=== PATIENT | male | born 1955 | race Caucasian/White ===

== ENCOUNTER 2017-07-24 19:22 | Inpatient (IN) ==
--- NOTE | 2017-07-24 19:56 | Emergency Department Note ---
Disposition Clinical Impression: A-fib, Weakness, Hypophosphatemia Disposition: Admitted As Inpatient Condition: Good Referrals: NONE,PCP [Primary Care Provider] - Forms: ED Satisfaction Letter General Adult HPI - General Chief complaint: ED Chest Pain Stated complaint: chest pain Time Seen by Provider: 07/24/17 19:40 Source: patient, EMS Limitations: no limitations Nursing Notes Reviewed: Yes Vital Signs Reviewed: Yes - History of Present Illness Pain Scale: 6 - Related Data Home Medications Medication Instructions Recorded Confirmed Albuterol Sulfate [Albuterol 2 puff IH Q4H PRN 07/24/17 07/24/17 Inhaler] Amlodipine Besylate 10 mg PO DAILY 07/24/17 07/24/17 Aspirin 325 mg PO DAILY 07/24/17 07/24/17 Atenolol [Tenormin] 50 mg PO BID 07/24/17 07/24/17 Atorvastatin Calcium [Lipitor] 80 mg PO HS 07/24/17 07/24/17 Clopidogrel [Plavix] 75 mg PO DAILY 07/24/17 07/24/17 Ezetimibe [Zetia] 10 mg PO DAILY 07/24/17 07/24/17 FLUoxetine HCl [PROzac] 60 mg PO DAILY 07/24/17 07/24/17 Lisinopril [Zestril] 20 mg PO BID 07/24/17 07/24/17 Melatonin 5 mg PO HS 07/24/17 07/24/17 Methylphenidate HCl [Ritalin] 20 mg PO TID 07/24/17 07/24/17 Mirtazapine [Remeron] 15 mg PO HS 07/24/17 07/24/17 Nitroglycerin [Nitrostat] 0.4 mg SL Q5M PRN 07/24/17 07/24/17 Rivaroxaban [Xarelto] 20 mg PO DAILY 07/24/17 07/24/17 Temazepam [Restoril] 30 mg PO HS 07/24/17 07/24/17 diazePAM [Valium] 10 mg PO TID PRN 07/24/17 07/24/17 Allergies Allergy/AdvReac Type Severity Reaction Status Date / Time acetaminophen AdvReac Itching Verified 04/02/16 15:53 [From Darvocet-N] codeine AdvReac Itching Verified 05/22/16 15:53 propoxyphene AdvReac Itching Verified 04/02/16 15:53 [From Darvocet-N] tramadol [From Ultram] AdvReac Itching Verified 04/02/16 15:53 Past Medical History - Past Medical History Medical history: Reports: arthritis, atrial fibrillation, COPD, coronary artery disease, diabetes, hyperlipidemia, hypertension Psychiatric history: Reports: anxiety, depression - Social History Smoking Status: Current every day smoker Alcohol use: Reports: occasionally Drug use: Reports: none Physical Exam - General Limitations: no limitations General appearance: alert Course Vital Signs Temperature 98.3 F 07/24/17 19:24 Pulse Rate 122 07/24/17 19:24 Respiratory Rate 20 07/24/17 19:24 Blood Pressure 105/68 07/24/17 19:24 O2 Sat by Pulse Oximetry 98 07/24/17 19:24 Temperature 98.3 F 07/24/17 19:24 Pulse Rate 111 07/24/17 22:31 Respiratory Rate 18 07/24/17 22:31 Blood Pressure 117/66 07/24/17 22:31 O2 Sat by Pulse Oximetry 98 07/24/17 22:31 Oxygen Delivery Oxygen Delivery Room Air Medical Decision Making - MDM Narrative Medical decision making narrative: I examined this patient and my medical decision-making was reviewed with the Resident Physician. I agree with the documented findings, disposition and treatment plan as described except to the extent set forth below. Patient seen and evaluated by Dr. Grewal and myself, agrees his evaluation management plan, surprise, the patient will stay. Patient has a significant cardiac history says he has 9 stents is been noncompliant with medications but is on Plavix at this time. A history of A. fib needs get rapid ventricular we will try to slow his rate down with Cardizem check labs EKG chest x-ray and reassess he will need admission. He is in agreement to this plan. 2046 hrs.: Initial EKG showed A. fib with RVR. He is on Cardizem drip at this time. Labs are coming back and he will be admitted. Chest X-Ray 07/24/17 19:41 IMPRESSION: No acute cardiopulmonary disease. D/ / Elvis Vitale MD / Elvis Vitale MD Interpreting Provider: Elvis Vitale MD 2230 hrs.: Patient's heart rates come down to 120 we have increased his Cardizem from 5 mg to 10 mg an hour, we bolused him with 25 mg. Will repeat an EKG. Labs are back chest x-rays back and her goals admission A. fib with RVR chest pain rule out ACS. Labs are reviewed and troponins negative. Patient's critical care time except when he separately billable procedures is 30 minutes. 2235 hrs. patient's current heart rate is 82 we will repeat EKG at this time. Will call for admission. - Lab Data Result diagrams: 07/24/17 20:11 07/24/17 20:11 Lab Results 07/24/17 07/24/17 07/24/17 Range/Units 20:11 20:11 20:11 WBC 13.0 H (4.3-11.1) K/mcL RBC 5.25 (4.19-5.50) M/mcL Hgb 15.5 (12.9-16.9) g/dL Hct 45.3 (37.5-50.1) % MCV 86.3 (83.0-100.0) fL MCH 29.5 (28.0-33.3) pg MCHC 34.2 (31.6-35.5) g/dL RDW 12.3 (11.5-14.5) % Plt Count 299 (140-400) K/mcL MPV 9.7 (9.4-12.4) fL Immature Gran % 0.4 (0-4) % Seg Neutrophils % 82.6 % Lymphocytes % 12.0 % Monocytes % 4.4 % Eosinophils % 0.3 % Basophils % 0.3 % Neutrophils # 10.7 H (1.6-8.9) K/mcL Lymphocytes # 1.6 (0.6-4.6) K/mcL Monocytes # 0.6 (0.0-1.3) K/mcL Eosinophils # 0.0 (0.0-0.6) K/mcL Basophils # 0.0 (0.0-0.2) K/mcL Immature Plt Fraction 2.4 (1.1-6.1) % PT 11.7 (9.4-12.1) Seconds INR 1.1 Sodium 138 (136-145) mEq/L Potassium 3.7 (3.5-4.5) mEq/L Chloride 107 (98-109) mEq/L Carbon Dioxide 20 (19-29) mEq/L BUN 16 (8-26) mg/dL Creatinine 0.92 (0.72-1.25) mg/dL Est GFR ( Amer) > 60 (> 60) Est GFR (Non-Af Amer) > 60 (> 60) BUN/Creatinine Ratio 17 (6-26) Glucose 98 (70-99) mg/dL Calculated Osmolality 287 (280-300) Calcium 10.1 (8.6-10.8) mg/dL Phosphorus 1.0 L* (2.3-4.7) mg/dL Magnesium 1.9 (1.6-2.6) mg/dL Troponin I (0-0.03) ng/mL TSH 2.722 (0.350-4.840) mcIU/mL 07/24/17 Range/Units 20:11 WBC (4.3-11.1) K/mcL RBC (4.19-5.50) M/mcL Hgb (12.9-16.9) g/dL Hct (37.5-50.1) % MCV (83.0-100.0) fL MCH (28.0-33.3) pg MCHC (31.6-35.5) g/dL RDW (11.5-14.5) % Plt Count (140-400) K/mcL MPV (9.4-12.4) fL Immature Gran % (0-4) % Seg Neutrophils % % Lymphocytes % % Monocytes % % Eosinophils % % Basophils % % Neutrophils # (1.6-8.9) K/mcL Lymphocytes # (0.6-4.6) K/mcL Monocytes # (0.0-1.3) K/mcL Eosinophils # (0.0-0.6) K/mcL Basophils # (0.0-0.2) K/mcL Immature Plt Fraction (1.1-6.1) % PT (9.4-12.1) Seconds INR Sodium (136-145) mEq/L Potassium (3.5-4.5) mEq/L Chloride (98-109) mEq/L Carbon Dioxide (19-29) mEq/L BUN (8-26) mg/dL Creatinine (0.72-1.25) mg/dL Est GFR ( Amer) (> 60) Est GFR (Non-Af Amer) (> 60) BUN/Creatinine Ratio (6-26) Glucose (70-99) mg/dL Calculated Osmolality (280-300) Calcium (8.6-10.8) mg/dL Phosphorus (2.3-4.7) mg/dL Magnesium (1.6-2.6) mg/dL Troponin I 0.00 (0-0.03) ng/mL TSH (0.350-4.840) mcIU/mL
[2017-07-24] MEDS ORDERED: Nitroglycerin 0.4 MG TAB.SUBL SL PRN (20:02)
--- NOTE | 2017-07-24 20:13 | Emergency Department Note ---
Disposition Clinical Impression: A-fib, Weakness, Hypophosphatemia Disposition: Admitted As Inpatient Condition: Good Referrals: NONE,PCP [Primary Care Provider] - Forms: ED Satisfaction Letter Time of Disposition: 21:55 Chest Pain HPI - General Chief Complaint: ED Chest Pain Stated Complaint: chest pain Time Seen by Provider: 07/24/17 19:40 Source: patient, EMS Limitations: no limitations Vital Signs Reviewed: Yes Nursing Notes Reviewed: Yes - History of Present Illness HPI Narrative: Patient presents to the ED with the chief complaint of chest pain. Patient has a history of paroxysmal atrial fibrillation and is supposed to be on Coumadin but does not take it due to cost. States that for the last few days he has felt like he has been in A. fib, but about 45 minutes prior to arrival, he had acute onset of retrosternal chest heaviness and pressure and shortness of breath. States he felt like his atrial fibrillation was really acting up. No nausea, vomiting or diaphoresis. No headaches, changes in vision. Does complain of bilateral arm tingling and right shoulder discomfort from the pain but this has been ongoing for the past few days and is unsure when it started. States that he took a nitroglycerin which helped with his pain , but he ran out of them Severity scale (1-10): 4 - Related Data Home Medications Medication Instructions Recorded Confirmed Albuterol Sulfate [Albuterol 2 puff IH Q4H PRN 07/24/17 07/24/17 Inhaler] Amlodipine Besylate 10 mg PO DAILY 07/24/17 07/24/17 Aspirin 325 mg PO DAILY 07/24/17 07/24/17 Atenolol [Tenormin] 50 mg PO BID 07/24/17 07/24/17 Atorvastatin Calcium [Lipitor] 80 mg PO HS 07/24/17 07/24/17 Clopidogrel [Plavix] 75 mg PO DAILY 07/24/17 07/24/17 Ezetimibe [Zetia] 10 mg PO DAILY 07/24/17 07/24/17 FLUoxetine HCl [PROzac] 60 mg PO DAILY 07/24/17 07/24/17 Lisinopril [Zestril] 20 mg PO BID 07/24/17 07/24/17 Melatonin 5 mg PO HS 07/24/17 07/24/17 Methylphenidate HCl [Ritalin] 20 mg PO TID 07/24/17 07/24/17 Mirtazapine [Remeron] 15 mg PO HS 07/24/17 07/24/17 Nitroglycerin [Nitrostat] 0.4 mg SL Q5M PRN 07/24/17 07/24/17 Rivaroxaban [Xarelto] 20 mg PO DAILY 07/24/17 07/24/17 Temazepam [Restoril] 30 mg PO HS 07/24/17 07/24/17 diazePAM [Valium] 10 mg PO TID PRN 07/24/17 07/24/17 Allergies Allergy/AdvReac Type Severity Reaction Status Date / Time acetaminophen AdvReac Itching Verified 04/02/16 15:53 [From Darvocet-N] codeine AdvReac Itching Verified 04/02/16 15:53 propoxyphene AdvReac Itching Verified 04/02/16 15:53 [From Darvocet-N] tramadol [From Ultram] AdvReac Itching Verified 04/02/16 15:53 All systems ED: reviewed and negative except as stated. Constitutional: Denies: fever Cardiovascular: Reports: chest pain Respiratory: Reports: dyspnea Gastrointestinal: Denies: vomiting Chest Pain PMH - Past Medical History Medical history: Reports: arthritis, atrial fibrillation, COPD, coronary artery disease, diabetes, hyperlipidemia, hypertension Psychiatric history: Reports: anxiety, depression - Social History Smoking Status: Current every day smoker Alcohol use: Reports: occasionally Drug use: Reports: none Physical Exam - General Limitations: no limitations General appearance: alert, in no apparent distress - Head Head exam: atraumatic, normocephalic, normal inspection - Eye Eye exam: Present: normal appearance, PERRL, EOMI - ENT ENT exam: normal exam, normal oropharynx, mucous membranes moist - Neck Neck exam: Present: normal inspection, full ROM, trachea midline - Chest Chest inspection: Present: normal inspection, symmetric chest wall rise - Respiratory Respiratory exam: Present: normal lung sounds bilaterally - Cardiovascular Cardiovascular exam: Present: tachycardia, irregular rhythm - Abdominal Exam Abdominal exam: Present: soft, Non-Tender. Absent: tenderness, distention, guarding, rebound, rigidity - Extremities Exam Extremities exam: Present: normal inspection, full ROM. Absent: tenderness, pedal edema - Neurological Exam Neurological exam: Present: alert, oriented X3 - Expanded Neurological Exam Patient oriented to: Present: person, place, time Speech: Present: fluid speech Cranial nerves: EOM function (II, III, IV, ): Normal, facial sensation (V): Normal, facial palsy (VII): Abnormal Left (patient states normal, very slighlt L corner of mouth droop), spinal accessory function (XI): Normal, tongue deviation (XII): Normal Cerebellar function: finger to nose: Normal Cerebellar function: normal gait Motor strength - LUE: 5/5 Motor strength - RUE: 5/5 Motor strength - LLE: 5/5 Motor strength - RLE: 5/5 Upper motor neuron exam: asher neglect: Absent bilaterally, pronator drift: Absent bilaterally Sensory exam upper extremity: light touch: Normal Sensory exam lower extremity: light touch: Normal Coma Scale Eye Opening: Spontaneous Coma Scale Motor Response: Obeys Commands Coma Scale Verbal Response: Oriented Coma Scale Total: 15 - Psychiatric Psychiatric exam: Present: normal affect, normal mood - Skin Skin exam: Present: warm, dry, intact, normal color Course Course Narrative: Patient presenting with history of A. fib. Patient, in A. fib on exam. Also has some subjective right-sided upper extremity weakness, although nondetectable on exam. Does have a mild left-sided facial asymmetry. The patient states this is normal. He is unsure when all this started. He chest pain that brought him in tonight started about 45 minutes prior to arrival. Overall, he looks well. We will workup and likely admitted. Due to his history of atrial fibrillation and being noncompliant with his anticoagulants. We will go ahead and CT his head to evaluate for potential ischemic changes. Vital Signs Temperature 98.3 F 07/24/17 19:24 Pulse Rate 122 07/24/17 19:24 Respiratory Rate 20 07/24/17 19:24 Blood Pressure 105/68 07/24/17 19:24 O2 Sat by Pulse Oximetry 98 07/24/17 19:24 Temperature 98.3 F 07/24/17 19:24 Pulse Rate 111 07/24/17 22:31 Respiratory Rate 18 07/24/17 22:31 Blood Pressure 117/66 07/24/17 22:31 O2 Sat by Pulse Oximetry 98 07/24/17 22:31 Oxygen Delivery Oxygen Delivery Room Air Chest Pain - Medical Records Medical records reviewed: Yes I reviewed the patient's medical records. - Lab Data Lab results reviewed: Yes I reviewed the patient's lab results. Result diagrams: 07/24/17 20:11 07/24/17 20:11 Lab Results 07/24/17 07/24/17 07/24/17 Range/Units 20:11 20:11 20:11 WBC 13.0 H (4.3-11.1) K/mcL RBC 5.25 (4.19-5.50) M/mcL Hgb 15.5 (12.9-16.9) g/dL Hct 45.3 (37.5-50.1) % MCV 86.3 (83.0-100.0) fL MCH 29.5 (28.0-33.3) pg MCHC 34.2 (31.6-35.5) g/dL RDW 12.3 (11.5-14.5) % Plt Count 299 (140-400) K/mcL MPV 9.7 (9.4-12.4) fL Immature Gran % 0.4 (0-4) % Seg Neutrophils % 82.6 % Lymphocytes % 12.0 % Monocytes % 4.4 % Eosinophils % 0.3 % Basophils % 0.3 % Neutrophils # 10.7 H (1.6-8.9) K/mcL Lymphocytes # 1.6 (0.6-4.6) K/mcL Monocytes # 0.6 (0.0-1.3) K/mcL Eosinophils # 0.0 (0.0-0.6) K/mcL Basophils # 0.0 (0.0-0.2) K/mcL Immature Plt Fraction 2.4 (1.1-6.1) % PT 11.7 (9.4-12.1) Seconds INR 1.1 Sodium 138 (136-145) mEq/L Potassium 3.7 (3.5-4.5) mEq/L Chloride 107 (98-109) mEq/L Carbon Dioxide 20 (19-29) mEq/L BUN 16 (8-26) mg/dL Creatinine 0.92 (0.72-1.25) mg/dL Est GFR ( Amer) > 60 (> 60) Est GFR (Non-Af Amer) > 60 (> 60) BUN/Creatinine Ratio 17 (6-26) Glucose 98 (70-99) mg/dL Calculated Osmolality 287 (280-300) Calcium 10.1 (8.6-10.8) mg/dL Phosphorus 1.0 L* (2.3-4.7) mg/dL Magnesium 1.9 (1.6-2.6) mg/dL Troponin I (0-0.03) ng/mL TSH 2.722 (0.350-4.840) mcIU/mL 07/24/17 Range/Units 20:11 WBC (4.3-11.1) K/mcL RBC (4.19-5.50) M/mcL Hgb (12.9-16.9) g/dL Hct (37.5-50.1) % MCV (83.0-100.0) fL MCH (28.0-33.3) pg MCHC (31.6-35.5) g/dL RDW (11.5-14.5) % Plt Count (140-400) K/mcL MPV (9.4-12.4) fL Immature Gran % (0-4) % Seg Neutrophils % % Lymphocytes % % Monocytes % % Eosinophils % % Basophils % % Neutrophils # (1.6-8.9) K/mcL Lymphocytes # (0.6-4.6) K/mcL Monocytes # (0.0-1.3) K/mcL Eosinophils # (0.0-0.6) K/mcL Basophils # (0.0-0.2) K/mcL Immature Plt Fraction (1.1-6.1) % PT (9.4-12.1) Seconds INR Sodium (136-145) mEq/L Potassium (3.5-4.5) mEq/L Chloride (98-109) mEq/L Carbon Dioxide (19-29) mEq/L BUN (8-26) mg/dL Creatinine (0.72-1.25) mg/dL Est GFR ( Amer) (> 60) Est GFR (Non-Af Amer) (> 60) BUN/Creatinine Ratio (6-26) Glucose (70-99) mg/dL Calculated Osmolality (280-300) Calcium (8.6-10.8) mg/dL Phosphorus (2.3-4.7) mg/dL Magnesium (1.6-2.6) mg/dL Troponin I 0.00 (0-0.03) ng/mL TSH (0.350-4.840) mcIU/mL - Radiology Data Radiology results reviewed: Yes I reviewed the patient's radiology results. - EKG Data EKG attestation: Yes I reviewed and interpreted this EKG. EKG results narrative: A. fib with RVR, rate 157, QRS 76, QTC 382, normal axis, no specific ischemic changes Repeat EKG at 2244 shows A. fib, rate 85, normal axis, no ischemic changes
[2017-07-24 20:22] LABS: Basophils % 0.3 %; Eosinophils % 0.3 %; Hematocrit 45.3 % (37.5-50.1); Hemoglobin 15.5 g/dL (12.9-16.9); Immature Granulocytes % 0.4 % (0-4); Immature Platelets 2.4 % (1.1-6.1); Lymphocytes # 1.6 K/mcL (0.6-4.6); Mean Corpuscular HGB Conc 34.2 g/dL (31.6-35.5); Mean Corpuscular Hemoglobin 29.5 pg (28.0-33.3); Mean Corpuscular Volume 86.3 fL (83.0-100.0); Mean Platelet Volume 9.7 fL (9.4-12.4); Monocytes # 0.6 K/mcL (0.0-1.3); Monocytes % 4.4 %; Neutrophils # 10.7 K/mcL (1.6-8.9); Platelet Count 299 K/mcL (140-400); Red Blood Count 5.25 M/mcL (4.19-5.50); Red Cell Distribution Width 12.3 % (11.5-14.5); Segmented Neutrophils % 82.6 %
[2017-07-24 20:27] LABS: INR 1.1; Prothrombin Time 11.7 Seconds (9.4-12.1)
[2017-07-24 20:33] LABS: BUN/Creatinine Ratio 17 (6-26); Blood Urea Nitrogen 16 mg/dL (8-26); Calcium 10.1 mg/dL (8.6-10.8); Carbon Dioxide 20 mEq/L (19-29); Chloride 107 mEq/L (98-109); Glucose 98 mg/dL (70-99); Magnesium 1.9 mg/dL (1.6-2.6); Osmolality,Calculated 287 (280-300); Potassium 3.7 mEq/L (3.5-4.5); Sodium 138 mEq/L (136-145); eGFR For African Americans > 60 (> 60); eGFR For Non-African Americans > 60 (> 60)
[2017-07-24 20:55] LABS: Thyroid Stimulating Hormone 2.722 mcIU/mL (0.350-4.840)
[2017-07-24] MEDS ORDERED: Aspirin 325 MG TABLET PO ONE (21:52)
[2017-07-25] MEDS ORDERED: Ondansetron 4 MG/2 ML VIAL IVP PRN (01:07)
[2017-07-25] MEDS ORDERED: Naloxone 0.4 MG/ML INJ IVP PRN (01:07)
--- NOTE | 2017-07-25 01:09 | Internal Med History&Physical ---
<Godwin Bermudez - Last Filed: 07/25/17 02:22> Date of Encounter: 07/25/17 Time of Encounter: 00:45 Assessment and Plan (1) Atrial fibrillation with RVR Current visit: Yes Status: Acute Patient reported having palpitations that felt like atrial fibrillation with onset of his chest pain earlier today. He states that since the improvement in his heart rate has been seeing he has also had improvement in his chest pain. Atrial fibrillation with RVR was seen at presentation and controlled with Cardizem drip. Patient was not anticoagulated for the last 3-4 years, though states that he has had approval by his insurance company for Xarelto even if he has not started yet. Continue Cardizem drip for rate control, consider transition to by mouth Cardizem We will start Xarelto We will obtain echocardiogram Continue telemetry (2) Chest pain Current visit: Yes Status: Acute Worse severe, 08/21, pressure center chest that began today with walking and improved with nitroglycerin. He states the pain lasted for an hour but is mostly gone now. Initial troponin negative, EKG negative for concerning ischemic findings. He still has some residual chest pressure but with control of his heart rate with Cardizem drips had improvement in his chest pain. We will continue to trend troponins Sublingual nitroglycerin as needed for continued chest discomfort We will continue to control atrial fibrillation We will obtain echocardiogram Continue telemetry Consider cardiology consult if chest pain does not resolve or patient develops positive troponins Qualifiers: Chest pain type: unspecified Qualified Code(s): R07.9 - Chest pain, unspecified (3) Facial droop Current visit: Yes Status: Acute Patient presents with atrial fibrillation RVR and chest pain. Found to have left-sided facial droop on physical exam. Family present says this is present for several days, if not one week. Patient also reports some mild blurring vision in his right eye, but denies other symptoms related to facial droop including headache, weakness, or sensation changes. Patient had carotid endarterectomy 6 months ago, but has history of atrial fibrillation and has not been anticoagulated in 3-4 years. We will obtain MRI head/brain in a.m. We will obtain echocardiogram Consider neurology consult if acute findings seen (4) Hypophosphatemia Current visit: Yes Status: Acute Patient found to have phosphate of 1.0. Unclear etiology of patient hypophosphatemia. Possible causes include decreased absorption/intake, vit. D deficiency, chronic diarrhea, urinary loss of phosphate, primary/secondary hyperparathyroidism, refeeding syndrome or Fanconi Syndrome. He reports eating mainly [employer] and bland snadwhiches, denies TUMs usage (likely no phos- binders), denies chronic diarrhea, and is not on a medication typically associated with Fanconi syndrome. We will replace phosphate with 44 mEq Potassium Phosphate We will recheck phosphate with morning labs We will check vitamin D and parathyroid hormone levels We will obtain urine phosphorus and urine creatinine to evaluate fractional excretion of phosphorus for potential urinary losses (5) CAD (coronary artery disease) Current visit: Yes Status: Acute Patient reports prior history of CAD with 9 stents placed previously. Reports having anginal symptoms earlier today, associated with elevated heart rate. No ischemic change seen on EKG, initial troponin negative. Chest pain improved with control of heart rate. We will continue to trend troponins Sublingual nitroglycerin for continued chest discomfort We will continue to monitor telemetry Qualifiers: Coronary Disease-Associated Artery/Lesion type: unspecified vessel or lesion type [place] vs. transplanted heart: [place] heart Associated angina: angina presence unspecified Qualified Code(s): I25.10 - Atherosclerotic heart disease of [place] coronary artery without angina pectoris (6) PAD (peripheral artery disease) Current visit: Yes Status: Chronic Patient had prior CVA in January with Dr. Fisher with evidence of CEA. No bruits auscultated at this time, chronic Doppler performed in January. (7) COPD (chronic obstructive pulmonary disease) Current visit: Yes Status: Chronic Patient reports history of COPD, he is a current every day smoker. Patient COPD stable at this time We will continue patient home inhaler Qualifiers: COPD type: unspecified COPD Qualified Code(s): J44.9 - Chronic obstructive pulmonary disease, unspecified (8) DVT prophylaxis Current visit: Yes Status: Acute Patient will be started on Xarelto, as patient has not been anticoagulation for atrial fibrillation for 3 or 4 years due to being taken off Coumadin for failing to appear to the Coumadin clinic and not having insurance approval for Xarelto. He recently states that the insurance company approved his Xarelto, but he has not started taking it yet. We will start patient on Xarelto (9) Pre-diabetes Current visit: Yes Status: Chronic Patient previously diagnosed with prediabetes, not on any diabetic medications currently. We will start patient on before meals at bedtime Accu-Cheks with low-dose insulin sliding scale correction, likely will not need supplemental insulin Internal Medicine - H&P: HPI Chief complaint: CHest pain and palpitations Admitted From: Home Plans for Post Hospital Care: Home History of present illness: Mr. Renteria is a 62 year old male with medical history of CAD (with 9 prior stents , last cath 5 years ago), borderline DM, COPD (still smoking), and A. Fib (not anticoagulated) who presents to [facility] after having onset of chest pain earlier that afternoon. He states that it felt like a heart attack and that it was sub- sternal that radiated to his right shoulder. He describes having some tingling in his hands as well. The pain was described as 10/10 pain and pressure in quality. He was concerned that he was having a heart attack. This pain started when he was walking in the afternoon and was improved by nitroglycerin. The pain lasted for an hour total. He reports that he has been having some pain like this for sometime, but that it hsan't been this bad before. During this time however, he noticed that he was having palpitations and thought that his atrial fibrillation was acting up. During the time that he was having the chest pain, he noticed that his heart rate was elevated. When he was brought to [facility] by EMS, he was found to be in A. Fib w/ rvr. He states that he had improvement in his chest pain when his heart rate was under control. As of my time of assessment, he reports having minimal chest pain left, and feels better in general. But, he does appear to have a facial droop. He appears to have weakness on the left side of his face. In speaking with his family, the facial droop is relatively new and has been present for about a week. He states that it hasn't bothered him and he hasn't noticed any other complications other than a little blurriness in his right eye. He has not had any muscle weakness or unilateral weakness or sensation abnormalities. Past Med Surg Social Fam HX - Past Medical History Medical history: arthritis, atrial fibrillation, COPD, coronary artery disease, diabetes, hyperlipidemia, hypertension Psychiatric history: anxiety, depression - Social History Smoking Status: Current every day smoker Alcohol use: occasionally Drug use: none Internal Medicine - H&P: Meds Albuterol Sulfate [Albuterol Inhaler] 2 puff IH Q4H PRN 07/24/17 [History] Atenolol [Tenormin] 50 mg PO BID 07/24/17 [History] Atorvastatin Calcium [Lipitor] 80 mg PO HS 07/24/17 [History] Clopidogrel [Plavix] 75 mg PO DAILY 07/24/17 [History] Ezetimibe [Zetia] 10 mg PO DAILY 07/24/17 [History] FLUoxetine HCl [PROzac] 60 mg PO DAILY 07/24/17 [History] Methylphenidate HCl [Ritalin] 20 mg PO TID 07/24/17 [History] Mirtazapine [Remeron] 15 mg PO HS 07/24/17 [History] Nitroglycerin [Nitrostat] 0.4 mg SL Q5M PRN 07/24/17 [History] RX: Amlodipine Besylate 10 mg PO DAILY 07/24/17 [History] RX: Aspirin 325 mg PO DAILY 07/24/17 [History] RX: Lisinopril [Zestril] 20 mg PO BID 07/24/17 [History] RX: Melatonin 5 mg PO HS 07/24/17 [History] Rivaroxaban [Xarelto] 20 mg PO DAILY 07/24/17 [History] Temazepam [Restoril] 30 mg PO HS 07/24/17 [History] diazePAM [Valium] 10 mg PO TID PRN 07/24/17 [History] 3 Allergy/AdvReac Type Severity Reaction Status Date / Time acetaminophen AdvReac Itching Verified 04/02/16 15:53 [From Darvocet-N] codeine AdvReac Itching Verified 04/02/16 15:53 propoxyphene AdvReac Itching Verified 04/02/16 15:53 [From Darvocet-N] tramadol [From Ultram] AdvReac Itching Verified 04/02/16 15:53 Review of systems: Gen: Denies fever, denies chills, denies weakness, denies fatigue, reports diaphoresis CV: Reports chest pain as per history of present illness, reports palpitations Resp: Reports mild shortness of breath GI: Denies nausea, denies vomiting, denies abdominal pain, denies constipation, denies diarrhea, denies hematochezia, denies melena Neuro: Denies headache, denies confusion, denies focal weakness, denies numbness , reports tingling, reports mild blurred vision in right eye Skin: Denies bruising, denies rash : Denies flank pain, denies dysuria, denies hematuria - Constitutional Vitals: Temp Pulse Resp BP Pulse Ox 98.3 F 106 18 163/90 99 07/24/17 19:24 07/25/17 01:02 07/25/17 01:02 07/25/17 01:02 07/25/17 01:02 Exam: General: Cooperative, pleasant, no acute distress, alert and oriented 3, answers questions appropriately, mild diaphoresis present HEENT: Normocephalic, atraumatic, neck supple, trachea midline, evidence of prior CEA, Conjunctiva pink, sclera anicteric, EOMI, PERRL, oral mucosa moist, no orophargeal erythema or exudates Respiratory: No accessory muscle usage, clear to auscultation bilaterally, no wheezes/rhonchi/rales appreciated Cardiovascular: Tachycardia, regular rhythm, no murmurs/rubs/gallops/clicks appreciated GI/abdominal: Nondistended, nontender, soft, normal bowel sounds, no peritoneal signs Extremities: No calf tenderness, noncyanotic, no pedal edema appreciated, warm, lower extremity pulses palpable and symmetrical Neurological: Alert and oriented 3, no facial droop, no focal deficits, cranial nerves show slight deficit in cranial nerve VII (facial) on left side, tremors observed and tongue, other cranial nerves intact, finger to nose test smooth and accurate without tremors, rapid alternating movements intact, sensation intact grossly in upper and lower shoulders bilaterally, strength intact in upper and lower extremities bilaterally Skin: Moist, intact, normal color Internal Med - H&P Results - Labs CBC & Chem 7: 07/24/17 20:11 07/24/17 20:11 <Kory Prescott - Last Filed: 07/25/17 03:42> Date of Encounter: 07/25/17 Internal Medicine - H&P: HPI History of present illness: Mr. Renteria is a 62 year old male All Systems PM: A 10-system review of systems was performed and is negative for pertinent findings except as documented above in the HPI. - Constitutional Vitals: Temp Pulse Resp BP Pulse Ox 98.3 F 75 18 128/107 98 07/24/17 19:24 07/25/17 02:28 07/25/17 02:28 07/25/17 02:28 07/25/17 02:28 Internal Med - H&P Results - Labs CBC & Chem 7: 07/24/17 20:11 07/24/17 20:11 Labs: Urine 07/25/17 Range/Units 02:28 Urine Color Yellow (Yellow) Urine Clarity Clear (Clear) Urine pH 7.5 (5.0-8.0) pH Units Ur Specific [place] 1.011 (1.010-1.025) Urine Protein Negative (Neg-Trace) mg/dL Urine Glucose (UA) Normal (Normal) mg/dL - Attending Attestation I examined this patient and my medical decision-making was reviewed with the Resident Physician. I agree with the documented findings, disposition and treatment plan as described except to the extent set forth below. Patient is a 62-year-old male with past medical history of atrial fibrillation, COPD, CAD, diabetes, hyperlipidemia, hypertension, anxiety and depression. Patient presents to the ED with complaints of chest pain and palpitations. It started earlier this afternoon. Initial pain was 10 out of 10 and was pressure type and quality. Improved with nitroglycerin. He decided to come to the ED thinking that he probably has atrial fibrillation with uncontrolled heart rate. On my examination patient is currently asymptomatic. His heart rate is controlled and he is on 5 mg per hour of IV Cardizem. He was initial concern for acute CVA. Patient seemed to have some mild facial droop. He has no focal neurological deficits. He is awake and alert and oriented 3. Initial CT head is negative. Initial workup is negative. Patient does have severe hyperphosphatemia. MRI is pending to rule out acute CVA. Echocardiogram is pending. Trend troponin. Continue aspirin, Plavix and statin. Heparin for DVT prophylaxis. Avoid full dose IV heparin at this time. We will continue home dose of Xarelto in a.m. Heart rate 66, blood pressure 141/75, O2 sat 97% on room air. Heart S1-S2 positive no murmurs rubs, irregular rhythm. Lungs bilateral good entry no wheeze or crackle. Abdomen soft nontender. Extremities all pulses strong regular no edema.
[2017-07-25] MEDS ORDERED: *HR* Dextrose 50 % in Water (Syg) 50 ML SYRINGE IVP PRN (01:15)
[2017-07-25] MEDS ORDERED: D5% in Water 1,000 ML IVC PRN (01:15)
[2017-07-25] MEDS ORDERED: Dextrose Gel 15 GM PO PRN ×2 (01:15)
[2017-07-25] MEDS ORDERED: Nitroglycerin 0.4 MG TAB.SUBL SL PRN (01:59)
[2017-07-25] MEDS ORDERED: Potassium Phosphate 44 MEQ in 0.9 % Sodium Chloride 250 ML IVPB ONE (02:03)
[2017-07-25 02:37] LABS: Bilirubin,Urine Negative (Negative); Blood,Urine Negative (Negative); Clarity,Urine Clear (Clear); Color,Urine Yellow (Yellow); Glucose,Urine (UA) Normal (Normal); Ketones,Urine Negative (Negative); Leukocyte Esterase,Urine Negative (Negative); Nitrite,Urine Negative (Negative); PH,Urine 7.5 pH Units (5.0-8.0); Protein,Urine Negative (Neg-Trace); Specific Gravity,Urine 1.011 (1.010-1.025); Urobilinogen,Urine Normal (Normal)
[2017-07-25 03:03] LABS: Creatinine,Urine 58 mg/dL
[2017-07-25 07:02] LABS: Basophils % 0.2 %; Eosinophils # 0.1 K/mcL (0.0-0.6); Eosinophils % 1.5 %; Hematocrit 44.6 % (37.5-50.1); Hemoglobin 15.2 g/dL (12.9-16.9); Immature Granulocytes % 0.2 % (0-4); Lymphocytes # 2.4 K/mcL (0.6-4.6); Lymphocytes % 26.9 %; Mean Corpuscular HGB Conc 34.1 g/dL (31.6-35.5); Mean Corpuscular Hemoglobin 29.8 pg (28.0-33.3); Mean Corpuscular Volume 87.5 fL (83.0-100.0); Mean Platelet Volume 9.2 fL (9.4-12.4); Monocytes # 0.6 K/mcL (0.0-1.3); Neutrophils # 5.6 K/mcL (1.6-8.9); Platelet Count 247 K/mcL (140-400); Red Cell Distribution Width 12.5 % (11.5-14.5); Segmented Neutrophils % 64.2 %
[2017-07-25 07:12] LABS: BUN/Creatinine Ratio 18 (6-26); Blood Urea Nitrogen 16 mg/dL (8-26); Calcium 9.7 mg/dL (8.6-10.8); Carbon Dioxide 23 mEq/L (19-29); Chloride 104 mEq/L (98-109); Glucose 93 mg/dL (70-99); Osmolality,Calculated 285 (280-300); Potassium 3.8 mEq/L (3.5-4.5); Sodium 137 mEq/L (136-145); eGFR For African Americans > 60 (> 60); eGFR For Non-African Americans > 60 (> 60)
[2017-07-25] MEDS: Pantoprazole 40 MG VIAL IVP SCH (07:27)
[2017-07-25] MEDS ORDERED: Aspirin 325 MG TABLET PO SCH (09:00)
[2017-07-25] MEDS: amLODIPine 5 MG TABLET PO SCH (09:09)
[2017-07-25] MEDS: Lisinopril 20 MG TABLET PO SCH ×2 (09:09→21:10)
[2017-07-25] MEDS: FLUoxetine 20 MG CAPSULE PO SCH (09:10)
[2017-07-25] MEDS: Insulin LISPRO 300 UNITS/3 ML VIAL SQ SCH ×3 (12:20→21:09)
[2017-07-25] MEDS: ZETIA 10MG PO SCH (13:16)
[2017-07-25] MEDS: Diltiazem CD (24hr) 120 MG CAPSULE PO SCH (14:20)
--- NOTE | 2017-07-25 14:36 | Cardiology Consult Note ---
Date of Encounter: 07/25/17 Time of Encounter: 14:27 Assessment and Plan (1) A-fib Current Visit: Yes Status: Acute Presented in atrial fibrillation with RVR. Likely d/t running out of atenolol. Now NSR. Home meds restarted. Converted to NSR on cardizem gtt. Convert cardizem to oral cardizem. Check TTE. TSH was normal. TTE 01/2015- EF 60%, no significant valvular disease. Start xarelto as recommended in-out pt setting. Reports he went through prior authorization and insurace will cover. Currently being worked up for CVA. presented with facial drooping. CHADS VASc=5 (HTN, DM, CVA, CAD/PVD) Qualifiers: Atrial fibrillation type: paroxysmal Qualified Code(s): I48.0 - Paroxysmal atrial fibrillation (2) Chest pain Current Visit: Yes Status: Acute Likely secondary to atrial fibrillation with RVR. Not taking prescribed meds. Trend troponin. No ischemic changes seen on EKG. TTE pending. Once restarted on home meds and is taking as prescribed, recommended re- evaluation in out-pt setting. Qualifiers: Chest pain type: unspecified Qualified Code(s): R07.9 - Chest pain, unspecified (3) CAD (coronary artery disease) Current Visit: Yes Status: Acute History of multiple PCI. Last C 01/2012 showed patent stents in the LCX artery and RCA. Minimal disease otherwise. EF 60%. Stress test 2014 was negative. Agree with re-starting asa, statin, and bb. Smoking cessation discussed. Healthy heart diet and exercise. Qualifiers: Coronary Disease-Associated Artery/Lesion type: unspecified vessel or lesion type [place] vs. transplanted heart: [place] heart Associated angina: angina presence unspecified Qualified Code(s): I25.10 - Atherosclerotic heart disease of [place] coronary artery without angina pectoris Discussion w patient/family: The assessment and plan as outlined above was discussed with the patient and/or family members who expressed understanding and agreement. All questions were answered. Thank you for involving us in the care of your patient. Please call with any questions. History of Present Illness Consult date: 07/25/17 Requesting physician: Kory Prescott Consult reason: atrial fibrillation with RVR Chief complaint: palpitations increasing, ran out of meds History of present illness: Mr. Renteria is a 62 year old male with a history of CAD s/p multiple PCI, atrial fibrillation, HTN, HLD, borderline DM, PVD s/p left CEA six months ago, and current tobacco use. He presents to the hospital with increasing palpitations and chest tightness over the past two weeks. His pain is not what he felt prior to his previous stents. It did feel like when he previously had atrial fibrillation. States heart rates have been higher and he has more palpitations. He ran out of Atenolol one month ago. He was told there was a shortage of the medication. He did not f/u with his provider to see if he could change the medication. He also reports not having a PCP and running out of all of his medications. He was previously seen by cardiology and recommended to start Xarelto for afib. He reports having to fill out paper-work but never f/u on getting prescription. He was noted to have a left facial droop on admission. Family reported that he had it for one week. The CT of his head showed a hypodensity in the thalumus. He is recommended to have an MRI. He was treated with IV cardizem in the ER and converted to NSR. Past Med Surg Social Fam HX - Past Medical History Medical history: arthritis, atrial fibrillation, COPD, coronary artery disease, diabetes, hyperlipidemia, hypertension Psychiatric history: anxiety, depression - Social History Smoking Status: Current every day smoker Alcohol use: occasionally Drug use: none - Family History Father Living Status: Cause of : Stroke Hx Family Cardiac Disorders: Yes Hx Family Cancer: Yes Mother Hx Family Cardiac Disorders: Yes Medications and Allergies Albuterol Sulfate [Albuterol Inhaler] 2 puff IH Q4H PRN 07/24/17 [History] Amlodipine Besylate 10 mg PO DAILY 07/24/17 [History] Aspirin 325 mg PO DAILY 07/24/17 [History] Atenolol [Tenormin] 50 mg PO BID 07/24/17 [History] Clopidogrel [Plavix] 75 mg PO DAILY 07/24/17 [History] Ezetimibe [Zetia] 10 mg PO DAILY 07/24/17 [History] FLUoxetine HCl [PROzac] 60 mg PO DAILY 07/24/17 [History] Lisinopril [Zestril] 20 mg PO BID 07/24/17 [History] Melatonin 5 mg PO HS 07/24/17 [History] Methylphenidate HCl [Ritalin] 20 mg PO TID 07/24/17 [History] Mirtazapine [Remeron] 15 mg PO HS 07/24/17 [History] Nitroglycerin [Nitrostat] 0.4 mg SL Q5M PRN 07/24/17 [History] Rivaroxaban [Xarelto] 20 mg PO DAILY 07/24/17 [History] Temazepam [Restoril] 30 mg PO HS 07/24/17 [History] diazePAM [Valium] 10 mg PO TID PRN 07/24/17 [History] 3 Allergy/AdvReac Type Severity Reaction Status Date / Time acetaminophen AdvReac Itching Verified 04/02/16 15:53 [From Darvocet-N] codeine AdvReac Itching Verified 04/02/16 15:53 propoxyphene AdvReac Itching Verified 04/02/16 15:53 [From Darvocet-N] tramadol [From Ultram] AdvReac Itching Verified 04/02/16 15:53 All Systems Review: A 10-system review of systems was performed and is negative for pertinent findings except as documented above in the HPI. Physical Examination Vital Signs, Last 4 Hours Temp Pulse Resp BP Pulse Ox 07/25/17 13:09 98.6 F 54 16 141/68 99 07/25/17 12:46 16 127/85 07/25/17 12:19 51 16 114/65 96 General: Conversant, No Apparent Distress HEENT: Atraumatic, Normocephaly, Mucus Membranes Moist Neck: No JVD, Normal carotid pulses Cardiac: Reg Rate and Rhythm, Normal S1 and S2, No Murmur Lungs: Normal Breath Sounds, No Wheeze, Rales, Rhonchi Neuro: Alert and responsive, No focal deficits noted Abdomen: Soft, Non-Tender Skin: No rashes noted on visualized skin Musculoskeletal: No Chest Wall Tenderness Extremities: No Clubbing, No Cyanosis, No Edema, Normal Pulses Results 07/25/17 06:49 07/25/17 06:49 Lab Results 07/25/17 13:00 Troponin I 0.00 - Imaging and Cardiology Echo: pending Consult Discharge Plan - Plan Referrals: NONE,PCP [Primary Care Provider] -
--- NOTE | 2017-07-25 16:10 | Electrocardiograph Report ---
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
--- NOTE | 2017-07-25 16:11 | Electrocardiograph Report ---
[place] [id number] Test Date: 2017-07-24 Pat Name: Ray Renteria Department: 105 Room: 3B22 Gender: Damper Maker: : 1955 Requested By: Sergio Ernandez Order Number: [id number] Reading MD: Maikol Raymond MD Measurements Intervals [place] Rate: 85 P: OR: 0 QRS: 8 QRSD: 81 T: 44 QT: 379 QTc: 421 Interpretive Statements ATRIAL FIBRILLATION Electronically Signed On 07-25-2017 16:09:39 EDT by Maikol Raymond MD
--- NOTE | 2017-07-25 16:13 | Electrocardiograph Report ---
[place] [id number] Test Date: 2017-07-25 Pat Name: Ray Renteria Department: 105 Room: 3B22 Gender: M Rn Gastroenterology: JAY : 1955 Requested By: Godwin Bermudez Order Number: [id number] Reading MD: Maikol Raymond MD Measurements Intervals [place] Rate: 58 P: 40 MD: 164 QRS: 1 QRSD: 86 T: 48 QT: 477 QTc: 473 Interpretive Statements SINUS BRADYCARDIA PROLONGED QT INTERVAL Electronically Signed On 07-25-2017 16:12:25 EDT by Maikol Raymond MD
[2017-07-25] MEDS ORDERED: *HR* Rivaroxaban 10 MG TABLET PO SCH (17:00)
--- NOTE | 2017-07-25 18:39 | Internal Med Progress Note ---
Date of Encounter: 07/25/17 Time of Encounter: 09:00 - Assessment and plan (1) TIA (transient ischemic attack) Current Visit: Yes Status: Acute Assessment and plan: Patient reports left-sided facial drop. Resolved when I saw patient. No further weakness/numbness. Suspect TIA. - Place patient on continuous cardiac monitoring. - Echocardiogram. - Duplex carotid. - Continue aspirin, Plavix, and xarelto Qualifiers: Transient cerebral ischemia type: other Qualified Code(s): G45.8 - Other transient cerebral ischemic attacks and related syndromes (2) Pre-diabetes Current Visit: Yes Status: Chronic Assessment and plan: Continue diabetic diet and sliding scale (3) COPD (chronic obstructive pulmonary disease) Current Visit: Yes Status: Chronic Qualifiers: COPD type: unspecified COPD Qualified Code(s): J44.9 - Chronic obstructive pulmonary disease, unspecified (4) CAD (coronary artery disease) Current Visit: Yes Status: Acute Assessment and plan: S/P stent. 3 sets of troponin negative. Continue aspirin, Plavix, beta preeti , and statin. No chest pain now. Qualifiers: Coronary Disease-Associated Artery/Lesion type: unspecified vessel or lesion type [place] vs. transplanted heart: [place] heart Associated angina: angina presence unspecified Qualified Code(s): I25.10 - Atherosclerotic heart disease of [place] coronary artery without angina pectoris (5) PAD (peripheral artery disease) Current Visit: Yes Status: Chronic Assessment and plan: Continue aspirin and Plavix. Continue statin (6) DVT prophylaxis Current Visit: Yes Status: Acute Assessment and plan: Patient is on xarelto. (7) Atrial fibrillation with RVR Current Visit: Yes Status: Acute Assessment and plan: Controlled by Cardizem drip. Switch to normal sinus rhythm now. Cardiac consult appreciated. Continue beta preeti and Cardizem by mouth. xarelto for anticoagulation. Patient has run out of beta preeti and xarelto recently. We will consult social work for insurance issue. - Time Spent With Patient 25 - 35 minutes - Subjective Interval history: Patient is 62-year-old male admitted for A. fib with RVR. His past medical history is significant for A. fib, borderline diabetes, CAD S/P stent, COPD. I saw and examined patient. Patient denies chest pain or shortness of breath. Heart rhythm has switched to sinus rhythm. Cardizem drip has been discontinued. By mouth Cardizem placed on by cardiology. Patient was reported facial droop earlier. When I saw patient, he has no facial drop or other focal neuro deficit. His vision field is generally WNL, examined by me. Probably patient has TIA. Will place him with TIA workup. - Constitutional Vitals: Temp Pulse Resp BP Pulse Ox 98.5 F 57 17 139/79 97 07/25/17 14:59 07/25/17 14:59 07/25/17 14:59 07/25/17 14:59 07/25/17 14:59 General appearance: Present: A&O X 3, pleasant, no acute distress, answers questions appropriately - Head Head exam: Present: atraumatic, normocephalic - Eye Eye exam: Present: PERRL, conjuntiva pink, sclera anicteric Pupils: Present: PERRL - Neck Neck exam general surgery: Present: supple, trachea midline. Absent: lymphadenopathy - Respiratory Respiratory exam: Present: CTAB. Absent: accessory muscle use, rales, rhonchi, wheezes - Cardiovascular Cardiovascular exam: Present: RRR, +S1, +S2. Absent: diastolic murmur, gallop, rubs, systolic murmur - GI/Abdominal GI/Abdominal exam: Present: normal bowel sounds, soft, no peritoneal signs. Absent: distended, tenderness - Extremities Exam Extremities exam: Present: warm, radial pulses palpable and symmetrical. Absent : calf tenderness, cyanotic, pedal edema - Neurological Exam Neurological exam: Present: CN II-XII intact, oriented X3, no focal deficits. Absent: pronater drift, facial droop, speech deficit - Skin Skin exam: Present: dry, intact Internal Medicine: Result - Labs CBC & Chem 7: 07/25/17 06:49 07/25/17 06:49 Labs: Cardiac Enzymes 07/25/17 Range/Units 13:00 Troponin I 0.00 (0-0.03) ng/mL - ABG Interpretation ABG results: PT/INR, D-dimer PT 11.7 Seconds (9.4-12.1) 07/24/17 20:11 Consult Discharge Plan - Plan Referrals: NONE,PCP [Primary Care Provider] -
[2017-07-25] MEDS: *HR* Rivaroxaban 10 MG TABLET PO SCH (20:01)
[2017-07-25] MEDS: Melatonin 3 MG TABLET PO SCH (21:09)
[2017-07-25] MEDS: Mirtazapine 15 MG TABLET PO SCH (21:10)
[2017-07-26] MEDS ORDERED: diazePAM 10 MG TABLET PO PRN (00:32)
[2017-07-26] MEDS ORDERED: diazePAM 5 MG TABLET PO ONE (00:51)
[2017-07-26] MEDS: diazePAM 10 MG TABLET PO PRN ×2 (00:52→20:16)
[2017-07-26] MEDS: Pantoprazole 40 MG VIAL IVP SCH (06:04)
[2017-07-26 06:37] LABS: Basophils % 0.4 %; Eosinophils # 0.2 K/mcL (0.0-0.6); Eosinophils % 2.4 %; Hematocrit 43.6 % (37.5-50.1); Hemoglobin 14.4 g/dL (12.9-16.9); Immature Granulocytes % 0.3 % (0-4); Immature Platelets 2.8 % (1.1-6.1); Lymphocytes # 2.6 K/mcL (0.6-4.6); Lymphocytes % 28.2 %; Mean Corpuscular Hemoglobin 29.7 pg (28.0-33.3); Mean Corpuscular Volume 89.9 fL (83.0-100.0); Mean Platelet Volume 9.7 fL (9.4-12.4); Monocytes # 0.7 K/mcL (0.0-1.3); Monocytes % 7.3 %; Neutrophils # 5.6 K/mcL (1.6-8.9); Platelet Count 281 K/mcL (140-400); Red Blood Count 4.85 M/mcL (4.19-5.50); Red Cell Distribution Width 12.6 % (11.5-14.5); Segmented Neutrophils % 61.4 %
[2017-07-26 06:52] LABS: BUN/Creatinine Ratio 22 (6-26); Blood Urea Nitrogen 22 mg/dL (8-26); Carbon Dioxide 25 mEq/L (19-29); Chloride 105 mEq/L (98-109); Glucose 99 mg/dL (70-99); Magnesium 2.4 mg/dL (1.6-2.6); Osmolality,Calculated 291 (280-300); Potassium 4.4 mEq/L (3.5-4.5); Sodium 139 mEq/L (136-145); eGFR For African Americans > 60 (> 60); eGFR For Non-African Americans > 60 (> 60)
[2017-07-26] MEDS: Insulin LISPRO 300 UNITS/3 ML VIAL SQ SCH ×4 (07:43→23:59)
[2017-07-26] MEDS: Diltiazem CD (24hr) 120 MG CAPSULE PO SCH (07:56)
[2017-07-26] MEDS: FLUoxetine 20 MG CAPSULE PO SCH (07:56)
[2017-07-26] MEDS: Aspirin Enteric Coated 81 MG Tablet PO SCH (07:56)
[2017-07-26] MEDS: ZETIA 10MG PO SCH (07:57)
[2017-07-26] MEDS: amLODIPine 5 MG TABLET PO SCH (07:57)
[2017-07-26] MEDS: Lisinopril 20 MG TABLET PO SCH ×2 (09:23→20:13)
--- NOTE | 2017-07-26 09:43 | Cardiology Progress Note ---
Date of Encounter: 07/26/17 Time of Encounter: 09:15 Assessment and Plan (1) A-fib Current Visit: Yes Status: Acute Presented in atrial fibrillation with RVR. Likely d/t running out of atenolol. H /o atrial fibrillation. Now NSR. Home meds restarted. Converted to NSR on cardizem gtt. Oral cardizem started. TSH was normal. TTE EF 60-65%. Mild distolic dysfunction. Mild MS. Started xarelto as recommended in-out pt setting. Reports he went through prior authorization and insurace will cover. Currently being worked up for CVA. presented with facial drooping. CHADS VASc=5 (HTN, DM, CVA, CAD/PVD) Telemetry review shows Avg HR 74 bpm. HR 40-50 bpm currently. Denies dizziness or lightheadedness. HR as low as 30 bpm and 3 second pauses seen during nocturnal hours. Will stop cardizem. Consider out-pt sleep study to rule out sleep apnea. Continue atenolol. Patient was not taking at home. Would recommend patient have meds filled here prior to discharge. Out-patient f/u will be coordinated by [facility]. Please call with questions or changes. Qualifiers: Atrial fibrillation type: paroxysmal Qualified Code(s): I48.0 - Paroxysmal atrial fibrillation (2) Chest pain Current Visit: Yes Status: Acute Likely secondary to atrial fibrillation with RVR. Not taking prescribed meds. Troponin negative x 3. No ischemic changes seen on EKG. TTE shows preserved EF. HR now controlled. No recurrent chest pain. Recommended re-evaluation in out-pt setting. Qualifiers: Chest pain type: unspecified Qualified Code(s): R07.9 - Chest pain, unspecified (3) CAD (coronary artery disease) Current Visit: Yes Status: Acute History of multiple PCI. Last [facility] 01/2012 showed patent stents in the LCX artery and RCA. Minimal disease otherwise. EF 60%. Stress test 2014 was negative. Agree with re-starting asa, statin, and bb. Smoking cessation discussed. Agrees to nicotine patch. Healthy heart diet and exercise. Qualifiers: Coronary Disease-Associated Artery/Lesion type: unspecified vessel or lesion type [place] vs. transplanted heart: [place] heart Associated angina: angina presence unspecified Qualified Code(s): I25.10 - Atherosclerotic heart disease of [place] coronary artery without angina pectoris (4) Facial droop Current Visit: Yes Status: Acute Patient noted to have facial droop. Work-up per primary team. Now on xarelto for atrial fibrillation. No acut bleed on CT. There was a hypodensity on the thalamus. likely artifact but ischemia cannot be ruled out. Discussion w patient/family: The assessment and plan as outlined above was discussed with the patient and/or family members who expressed understanding and agreement. All questions were answered. Thank you for involving us in the care of your patient. Please call with any questions. Subjective Principal diagnosis: atrial fibrillation with RVR Interval history: Mr. Renteria reports he is feeling better. Denies recurrent chest pain. Objective Vital Signs, Last 4 Hours Temp Pulse Resp BP Pulse Ox 07/26/17 06:57 97.6 F 46 15 100/60 97 General: Conversant, No Apparent Distress HEENT: Atraumatic, Normocephaly, Mucus Membranes Moist Neck: No JVD, Normal carotid pulses Cardiac: Other (Apical irregular) Lungs: Normal Breath Sounds, No Wheeze, Rales, Rhonchi Neuro: Alert and responsive, No focal deficits noted Abdomen: Soft, Non-Tender Skin: No rashes noted on visualized skin Musculoskeletal: No Chest Wall Tenderness Extremities: No Clubbing, No Cyanosis, No Edema, Normal Pulses Results 07/26/17 05:19 07/26/17 05:19 Lab Results 07/25/17 07/26/17 07/26/17 13:00 05:19 05:19 WBC 9.1 Hgb 14.4 Hct 43.6 Plt Count 281 Sodium 139 Potassium 4.4 Chloride 105 Carbon Dioxide 25 BUN 22 Creatinine 1.02 Glucose 99 Calcium 10.0 Magnesium 2.4 Troponin I 0.00 - Imaging and Cardiology Echo: report reviewed Consult Discharge Plan - Plan Referrals: NONE,PCP [Primary Care Provider] -
--- NOTE | 2017-07-26 11:03 | Carotid Imaging Report ---
Carotid Duplex Patient Name:Ray Renteria Order Number:[id number] Procedure Date:07/25/2017 Date:1955ge:62 yrs Gender:Male Lt BP:123 / 67 mmHg Rt.BP:116 / 67 mmHgHeart Rate: Location:[facility] Room #: [facility] [employer] Supervisor:Jayleen Carroll, ALEXIS, RVT Referring MD:Laury Flores MD Reading MD:Pollo Lomax MD , FACS Primary Indications:TIA Risk Factors Yes/No Hypertension Yes Hypercholesterolemia Yes Smoking Current Yes Impressions: Findings: Right proximal ICA has a severe, 60-79% stenosis. Findings: Left mid ICA has a moderate, 40-59% stenosis. Findings Prior Intervention: The patient has undergone the following procedure: endarterectomy. Carotid Duplex: Right: The right proximal common carotid artery has a PSV of 68 cm/s and a EDV of 14 cm/s. The right mid common carotid artery has a PSV of 103 cm/s and a EDV of 16 cm/s. The right distal common carotid artery has a PSV of 94 cm/s and a EDV of 19 cm/s. The right bifurcation has a PSV of 119 cm/s and a EDV of 22 cm/s. There is 60-79% stenosis in the right proximal internal carotid artery with a PSV of 175 cm/s and a EDV of 41 cm/s. There is smooth homogeneous plaque. There is 40-59% stenosis in the right mid internal carotid artery with a PSV of 154 cm/s and a EDV of 33 cm/s. The right distal internal carotid artery has a PSV of 124 cm/s and a EDV of 28 cm/s. The right eca has a PSV of 146 cm/s and a EDV of 14 cm/s. The right vertebral artery has a PSV of 55 cm/s and a EDV of 9 cm/s. Left: The left proximal common carotid artery has a PSV of 105 cm/s and a EDV of 16 cm/s. The left mid common carotid artery has a PSV of 97 cm/s and a EDV of 15 cm/s. The left distal common carotid artery has a PSV of 82 cm/s and a EDV of 11 cm/s. There is nonstenotic plaque in the left bifurcation with a PSV of 102 cm/s and a EDV of 20 cm/s. The left proximal internal carotid artery has a PSV of 118 cm/s and a EDV of 29 cm/s. There is 40-59% stenosis in the left mid internal carotid artery with a PSV of 145 cm/s and a EDV of 27 cm/s. The left distal internal carotid artery has a PSV of 99 cm/s and a EDV of 22 cm/s. The left eca has a PSV of 129 cm/s and a EDV of 14 cm/s. The left vertebral artery has a PSV of 86 cm/s and a EDV of 14 cm/s. Carotid Results Right PSV EDV Assessment Proximal CCA 68 14 Mid CCA 103 16 Distal CCA 94 19 Bifurcation 119 22 Proximal ICA 175 41 60-79% stenosis Mid ICA 154 33 40-59% stenosis Distal ICA 124 28 ECA 146 14 Vertebral Artery 55 9 Antegrade Flow Left PSV EDV Assessment Proximal CCA 105 16 Mid CCA 97 15 Distal CCA 82 11 Bifurcation 102 20 Non Stenotic Plaque Proximal ICA 118 29 Mid ICA 145 27 40-59% stenosis Distal ICA 99 22 ECA 129 14 Vertebral Artery 86 14 Antegrade Flow Ratio's Right ICA/CCA Ratio: 1.69 ICA/CCA Values: 175/103 Left ICA/CCA Ratio: 1.49 ICA/CCA Values: 145/97 Updated by Pollo Lomax MD, FACS on 07/26/2017 10:58:23 AM Pollo Lomax MD electronically signed on 07/26/2017 10:58:42 AM with status of Final
[2017-07-26] MEDS: Nicotine 21 MG PATCH.TD24 TD SCH (11:49)
--- NOTE | 2017-07-26 17:05 | Vascular/Endovasc Consult Note ---
Date of Encounter: 07/26/17 Time of Encounter: 16:45 Assessment and Plan (1) Carotid stenosis, bilateral Status: Chronic The patient has a history of carotid stenosis. He underwent a right carotid endarterectomy in 2006. He is followed with duplex studies yearly. The patient was admitted with rapid atrial fibrillation. The patient reports that he was told that his left lip was drawn up and he had a facial droop on admission which resolved. However, he describes this as a chronic condition and he states he is unconcerned. He denies any other signs or symptoms of CVA, TIA or amaurosis fugax. His recent duplex reveals a recurrent 60-79% ALIYA stenosis. He will be scheduled for a CTA of the neck. (2) A-fib Status: Acute Qualifiers: Atrial fibrillation type: paroxysmal Qualified Code(s): I48.0 - Paroxysmal atrial fibrillation (3) CAD (coronary artery disease) Status: Chronic Qualifiers: Coronary Disease-Associated Artery/Lesion type: unspecified vessel or lesion type [place] vs. transplanted heart: [place] heart Associated angina: angina presence unspecified Qualified Code(s): I25.10 - Atherosclerotic heart disease of [place] coronary artery without angina pectoris (4) COPD (chronic obstructive pulmonary disease) Status: Chronic Qualifiers: COPD type: unspecified COPD Qualified Code(s): J44.9 - Chronic obstructive pulmonary disease, unspecified (5) PAD (peripheral artery disease) Status: Chronic He denies disabling claudication. (6) Essential hypertension Status: Chronic He was counseled regarding atherosclerotic risk factor reduction. (7) Tobacco abuse Status: Chronic He was counseled regarding smoking cessation. - History of Present Illness Consult date: 07/26/17 Requesting physician: Laury Flores Consult reason: Carotid artery stenosis Chief complaint: possible TIA History of present illness: Mr. Renteria is a 62 year old male with a history of hypertension, COPD and carotid stenosis who was admitted with rapid atrial fibrillation. At the time of his admission the patietn was noted to have a left facial droop. It was reported by his family that that the droop had been present for up to 1 week. THe patients reports that his droop resolved. He had undergone a carotid endarterectomy more than 6 years prior. As part of his evaluation he underwent a carotid duplex which revealed elevated velocities. Vascular surgery was consulted for further evaluation. The patient denies any other signs of CVA, TIA or amaurosis fugax. He denies any chest pain or shortness of breath. He reports that he feels much better since admission. Past Med Surg Social Fam HX - Past Medical History Medical history: arthritis, atrial fibrillation, COPD, coronary artery disease, diabetes, hyperlipidemia, hypertension Psychiatric history: anxiety, depression - Past Surgical History Surgical History: angioplasty/stent, carotid endarterectomy - Social History Smoking Status: Current every day smoker Packs per day: 1 Smokeless Tobacco Status: No Alcohol use: occasionally Drug use: none - Family History Father Living Status: Cause of : Stroke Hx Family Cardiac Disorders: Yes Hx Family Cancer: Yes Mother Hx Family Cardiac Disorders: Yes Medications and Allergies Albuterol Sulfate [Albuterol Inhaler] 2 puff IH Q4H PRN 07/24/17 [History] Clopidogrel [Plavix] 75 mg PO DAILY 07/24/17 [History] Ezetimibe [Zetia] 10 mg PO DAILY 07/24/17 [History] FLUoxetine HCl [Prozac] 60 mg PO DAILY 07/24/17 [History] Melatonin 5 mg PO HS 07/24/17 [History] Methylphenidate HCl [Ritalin] 20 mg PO TID 07/24/17 [History] Mirtazapine [Remeron] 15 mg PO HS 07/24/17 [History] Temazepam [Restoril] 30 mg PO HS 07/24/17 [History] diazePAM [Valium] 10 mg PO TID PRN 07/24/17 [History] Amlodipine Besylate 10 mg PO DAILY #30 07/27/17 [Rx] Aspirin Enteric Coated [Aspirin EC] 81 mg PO DAILY #30 07/27/17 [Rx] Atenolol [Tenormin] 50 mg PO BID #60 07/27/17 [Rx] Atorvastatin [Lipitor] 80 mg PO HS #60 tab 07/27/17 [Rx] Lisinopril [Zestril] 20 mg PO BID #30 07/27/17 [Rx] Nicotine Patch [Nicoderm] 21 mg TD DAILY #14 07/27/17 [Rx] Nitroglycerin [Nitrostat] 0.4 mg SL Q5M PRN #30 07/27/17 [Rx] Rivaroxaban [Xarelto] 20 mg PO DAILY #30 tablet 07/27/17 [Rx] 3 Allergy/AdvReac Type Severity Reaction Status Date / Time acetaminophen AdvReac Itching Verified 04/02/16 15:53 [From Darvocet-N] codeine AdvReac Itching Verified 04/02/16 15:53 propoxyphene AdvReac Itching Verified 04/02/16 15:53 [From Darvocet-N] tramadol [From Ultram] AdvReac Itching Verified 04/02/16 15:53 All Systems Review: A 10-system review of systems was performed and is negative for pertinent findings except as documented above in the HPI. - Constitutional Constitutional: no chills, no fatigue, no fever(s) - Cardiovascular Cardiovascular: no chest pain at rest, no chest pain with exertion - Neurological Neurological: no abnormal speech, no dizziness, no numbness Exam Vital Signs, Last 4 Hours Temp Pulse Resp BP Pulse Ox 07/26/17 15:27 96 07/26/17 15:06 98.2 F 60 16 114/62 96 General: Present: Conversant, No Apparent Distress HEENT: Present: Atraumatic, Normocephaly, Trachea midline, Pupils equal Neck: Absent: JVD, Lymphadenopathy, Left Carotid bruit, Right Carotid bruit Cardiac: Present: Normal S1 and S2, Irregular Rhythm Lungs: Present: Normal Breath Sounds, No Wheeze, Rales, Rhonchi Neuro: Present: Alert and responsive, No focal deficits noted, Cranial nerves grossly intact, Motor nerves grossly intact, Sensory nerves grossly intact Abdomen: Present: Soft, Non-tender. Absent: Hepatosplenomegaly, [place] Vascular: Present: Normal capillary refill. Absent: Clubbing, Cyanosis, Edema Skin: Present: No rashes noted on visualized skin Musculoskeletal: Present: No Chest Wall Tenderness Consult Discharge Plan - Plan Instructions: Atrial Fibrillation (DC), Peripheral Vascular Disorders (DC), Chronic Obstructive Pulmonary Disease (DC) Additional Instructions: Follow-up appointments: If there is not an appointment listed below, please call your physician and schedule a follow-up appointment. If you have congestive heart failure and your symptoms return, make an appointment with your physician. Medication List: Carry an up to date list of medications you are taking at all time. We have given you an updated medication list including any new medications that you have been prescribed. Please provide that list to your primary provider Symptoms: If your condition changes or you experience any of the following symptoms, notify your physician immediately: Unusual or worsening pain, fever, persistent nausea and vomiting, bleeding, increase in swelling (especially in your legs), sudden weight gain, extreme dizziness, chest pain, increased drainage or redness from a wound or incision. Go to the emergency department if you experience a problem with breathing. Weights: If you have a history of swelling or shortness of breath, weigh yourself daily and notify your physician if you have a weight gain of two or more pounds in one day or 5 or more pounds in a week. If you experience any of the warning signs for stroke: Sudden numbness or weakness of the face, arm or leg; especially on one side of the body, sudden confusion, trouble speaking or understanding, sudden trouble seeing in one or both eyes, sudden trouble walking, dizziness, loss of balance or coordination, sudden sever headache with no cause; Call 911 or go to the emergency room. Stroke is a medical emergency. Some risk factors for stroke: Age, cigarette smoking, diabetes, excessive alcohol consumption, family history , high blood pressure, overweight, physical inactivity, prior stroke, heart attack, diagnosis of carotid artery stenosis or other artery disease. If you smoke, STOP: Smoking or tobacco use significantly increases your risk of heart and lung disease. Your chance of disease greatly increases if you continue to smoke. For more information, call the [place] tobacco quit line for smoking cessation QUIT-NOW ( ) Referrals: NONE,PCP [Primary Care Provider] - (Please call the physician referral line at [phone] and schedule an appointment with a primary care physician.) Prescriptions: Amlodipine Besylate 10 mg PO DAILY #30 Aspirin Enteric Coated [Aspirin EC] 81 mg PO DAILY #30 Atenolol [Tenormin] 50 mg PO BID #60 Atorvastatin [Lipitor] 80 mg PO HS #60 tab Lisinopril [Zestril] 20 mg PO BID #30 Nicotine Patch [Nicoderm] 21 mg TD DAILY #14 Nitroglycerin [Nitrostat] 0.4 mg SL Q5M PRN #30 PRN Reason: Chest Pain Rivaroxaban [Xarelto] 20 mg PO DAILY #30 tablet
[2017-07-26] MEDS: *HR* Rivaroxaban 10 MG TABLET PO SCH (18:26)
--- NOTE | 2017-07-26 18:39 | Internal Med Progress Note ---
Date of Encounter: 07/26/17 Time of Encounter: 10:00 - Assessment and plan (1) TIA (transient ischemic attack) Current Visit: Yes Status: Acute Assessment and plan: Patient reports left-sided facial drop. Resolved when I saw patient. No further weakness/numbness. Suspect TIA. - Place patient on continuous cardiac monitoring. - Echocardiogram: unremarkable.. - Duplex carotid: B/L stenosis, vascular consult on case. - Continue aspirin, Plavix, and xarelto Qualifiers: Transient cerebral ischemia type: other Qualified Code(s): G45.8 - Other transient cerebral ischemic attacks and related syndromes (2) Pre-diabetes Current Visit: Yes Status: Chronic Assessment and plan: Continue diabetic diet and sliding scale (3) COPD (chronic obstructive pulmonary disease) Current Visit: Yes Status: Chronic Assessment and plan: Stable. No signs of exacerbation. Qualifiers: COPD type: unspecified COPD Qualified Code(s): J44.9 - Chronic obstructive pulmonary disease, unspecified (4) CAD (coronary artery disease) Current Visit: Yes Status: Acute Assessment and plan: S/P stent. 3 sets of troponin negative. Continue aspirin, Plavix, beta preeti , and statin. No chest pain now. Qualifiers: Coronary Disease-Associated Artery/Lesion type: unspecified vessel or lesion type [place] vs. transplanted heart: [place] heart Associated angina: angina presence unspecified Qualified Code(s): I25.10 - Atherosclerotic heart disease of [place] coronary artery without angina pectoris (5) PAD (peripheral artery disease) Current Visit: Yes Status: Chronic Assessment and plan: Continue aspirin and Plavix. Continue statin (6) DVT prophylaxis Current Visit: Yes Status: Acute Assessment and plan: Patient is on xarelto. (7) Atrial fibrillation with RVR Current Visit: Yes Status: Acute Assessment and plan: Switch to normal sinus rhythm now. Cardiac consult appreciated. Continue beta preeti by mouth. xarelto for anticoagulation. Patient has run out of beta preeti and xarelto recently. Consulted social work, plan to give pt coupon for low adams xarelto upon discharge. - Time Spent With Patient 25 - 35 minutes - Subjective Interval history: Patient is 62-year-old male admitted for A. fib with RVR. His past medical history is significant for A. fib, borderline diabetes, CAD S/P stent, COPD. I saw and examined patient. Patient denies chest pain or shortness of breath. Heart rhythm has switched to sinus rhythm. HR is slow at 40-50s. Will cont his home med atenolol, cardizem discontinued per cardiology. Cont closely monitor pt. Patient was reported facial droop earlier. MRI brain negative for acute infarct. However, duplex carotid shows b/l stenosis. Vascular consult appreciated. Will do CTA of neck for further evaluation. - Constitutional Vitals: Temp Pulse Resp BP Pulse Ox 98.2 F 60 16 114/62 96 07/26/17 15:06 07/26/17 15:06 07/26/17 15:07/26/17 15:07/26/17 15:27 General appearance: Present: A&O X 3, pleasant, no acute distress, answers questions appropriately - Head Head exam: Present: atraumatic, normocephalic - Eye Eye exam: Present: PERRL, conjuntiva pink, sclera anicteric Pupils: Present: PERRL - Neck Neck exam general surgery: Present: supple, trachea midline. Absent: lymphadenopathy - Respiratory Respiratory exam: Present: CTAB. Absent: accessory muscle use, rales, rhonchi, wheezes - Cardiovascular Cardiovascular exam: Present: RRR, +S1, +S2. Absent: diastolic murmur, gallop, rubs, systolic murmur - GI/Abdominal GI/Abdominal exam: Present: normal bowel sounds, soft, no peritoneal signs. Absent: distended, tenderness - Extremities Exam Extremities exam: Present: warm, radial pulses palpable and symmetrical. Absent : calf tenderness, cyanotic, pedal edema - Neurological Exam Neurological exam: Present: CN II-XII intact, oriented X3, no focal deficits. Absent: pronater drift, facial droop, speech deficit - Skin Skin exam: Present: dry, intact Internal Medicine: Result - Labs CBC & Chem 7: 07/26/17 05:19 07/26/17 05:19 Labs: Short CBC 07/26/17 Range/Units 05:19 WBC 9.1 (4.3-11.1) K/mcL Hgb 14.4 (12.9-16.9) g/dL Hct 43.6 (37.5-50.1) % Plt Count 281 (140-400) K/mcL Neutrophils # 5.6 (1.6-8.9) K/mcL BMP 07/26/17 05:19 Sodium 139 Potassium 4.4 Chloride 105 Carbon Dioxide 25 BUN 22 Creatinine 1.02 Glucose 99 Calcium 10.0 - ABG Interpretation ABG results: PT/INR, D-dimer PT 11.7 Seconds (9.4-12.1) 07/24/17 20:11 - Impressions Impressions Brain MRI 07/26/17 07:39 IMPRESSION: No acute intracranial abnormality. 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 Mild parenchymal volume loss. Mild chronic microvascular disease. D/ / Herberth Milan MD / Herberth Milan MD Interpreting Provider: Herberth Milan MD Consult Discharge Plan - Plan Referrals: NONE,PCP [Primary Care Provider] -
[2017-07-26] MEDS: Melatonin 3 MG TABLET PO SCH (20:13)
[2017-07-26] MEDS: Mirtazapine 15 MG TABLET PO SCH (20:14)
[2017-07-27] MEDS: Insulin LISPRO 300 UNITS/3 ML VIAL SQ SCH ×2 (08:08→11:48)
[2017-07-27] MEDS: Pantoprazole 40 MG VIAL IVP SCH (08:11)
[2017-07-27] MEDS: Nicotine 21 MG PATCH.TD24 TD SCH (08:12)
[2017-07-27] MEDS: Aspirin Enteric Coated 81 MG Tablet PO SCH (08:12)
[2017-07-27] MEDS: amLODIPine 5 MG TABLET PO SCH (08:12)
[2017-07-27] MEDS: ZETIA 10MG PO SCH (08:13)
[2017-07-27] MEDS: FLUoxetine 20 MG CAPSULE PO SCH (08:13)
[2017-07-27] MEDS: Lisinopril 20 MG TABLET PO SCH (08:14)
[2017-07-27 12:18] VITALS: BP 128/69
--- NOTE | 2017-07-27 15:10 | Vascular/[facility] Progress Note ---
Date of Encounter: 07/27/17 Time of Encounter: 14:15 - Assessment and plan (1) Carotid stenosis, bilateral Status: Chronic The patient has a history of carotid stenosis. He underwent a right carotid endarterectomy in 2006. He was admitted with rapid AFib and a facial droop that resolved quickly. He denies any other signs or symptoms of CVA, TIA or amaurosis fugax. His recent duplex revealed a recurrent 60-79% ALIYA stenosis. His elevated velocities may be related to his prior endarterectomy. His CTA reveals no evidence of hemodynamically significant carotid stenosis. His symptoms may have been secondary to a cardiac embolus due to his atrial fibrillation. It is recommended that he continue with his Xarelto. He will follow-up with vascular surgery as previously scheduled. He may be discharged from a vasculr surgery standpoint. (2) A-fib Status: Acute Qualifiers: Atrial fibrillation type: paroxysmal Qualified Code(s): I48.0 - Paroxysmal atrial fibrillation (3) CAD (coronary artery disease) Status: Chronic Qualifiers: Coronary Disease-Associated Artery/Lesion type: unspecified vessel or lesion type [place] vs. transplanted heart: [place] heart Associated angina: angina presence unspecified Qualified Code(s): I25.10 - Atherosclerotic heart disease of [place] coronary artery without angina pectoris (4) COPD (chronic obstructive pulmonary disease) Status: Chronic Qualifiers: COPD type: unspecified COPD Qualified Code(s): J44.9 - Chronic obstructive pulmonary disease, unspecified (5) Essential hypertension Status: Chronic He was again counseled regarding atherosclerotic risk factor reduction. (6) Tobacco abuse Status: Chronic He was counseled again regarding smoking cessation. - Subjective Interval history: The patient denies any acute issues over night. He denies any symptoms of CVA, TIA or amausoris fugax. He denies any palpitations. He denies chest pain or shortness of breath. Vital Signs, Last 4 Hours Temp Pulse Resp BP Pulse Ox 07/27/17 12:13 98.2 F 57 14 128/69 98 - Physical Examination General: Present: Conversant, No Apparent Distress HEENT: Present: Atraumatic, Normocephaly, Trachea midline, Pupils equal Neck: Absent: JVD Cardiac: Present: Normal S1 and S2, No Murmur Lungs: Present: Normal Breath Sounds, No Wheeze, Rales, Rhonchi Neuro: Present: Alert and responsive, No focal deficits noted, Motor nerves grossly intact, Sensory nerves grossly intact Vascular: Present: Normal capillary refill. Absent: Cyanosis, Edema Abdomen: Present: Soft, Non-tender Skin: Present: No rashes noted on visualized skin Musculoskeletal: Present: No Chest Wall Tenderness Results 07/26/17 05:19 07/26/17 05:19 - Imaging / Other Tests CT/CTA: report reviewed, image reviewed Consult Discharge Plan - Plan Instructions: Atrial Fibrillation (DC), Peripheral Vascular Disorders (DC), Chronic Obstructive Pulmonary Disease (DC) Additional Instructions: Follow-up appointments: If there is not an appointment listed below, please call your physician and schedule a follow-up appointment. If you have congestive heart failure and your symptoms return, make an appointment with your physician. Medication List: Carry an up to date list of medications you are taking at all time. We have given you an updated medication list including any new medications that you have been prescribed. Please provide that list to your primary provider Symptoms: If your condition changes or you experience any of the following symptoms, notify your physician immediately: Unusual or worsening pain, fever, persistent nausea and vomiting, bleeding, increase in swelling (especially in your legs), sudden weight gain, extreme dizziness, chest pain, increased drainage or redness from a wound or incision. Go to the emergency department if you experience a problem with breathing. Weights: If you have a history of swelling or shortness of breath, weigh yourself daily and notify your physician if you have a weight gain of two or more pounds in one day or 5 or more pounds in a week. If you experience any of the warning signs for stroke: Sudden numbness or weakness of the face, arm or leg; especially on one side of the body, sudden confusion, trouble speaking or understanding, sudden trouble seeing in one or both eyes, sudden trouble walking, dizziness, loss of balance or coordination, sudden sever headache with no cause; Call 911 or go to the emergency room. Stroke is a medical emergency. Some risk factors for stroke: Age, cigarette smoking, diabetes, excessive alcohol consumption, family history , high blood pressure, overweight, physical inactivity, prior stroke, heart attack, diagnosis of carotid artery stenosis or other artery disease. If you smoke, STOP: Smoking or tobacco use significantly increases your risk of heart and lung disease. Your chance of disease greatly increases if you continue to smoke. For more information, call the [place] tobacco quit line for smoking cessation - QUIT-NOW ( ) Referrals: NONE,PCP [Primary Care Provider] - (Please call the physician referral line at [phone] and schedule an appointment with a primary care physician.) Prescriptions: Amlodipine Besylate 10 mg PO DAILY #30 Aspirin Enteric Coated [Aspirin EC] 81 mg PO DAILY #30 Atenolol [Tenormin] 50 mg PO BID #60 Atorvastatin [Lipitor] 80 mg PO HS #60 tab Lisinopril [Zestril] 20 mg PO BID #30 Nicotine Patch [Nicoderm] 21 mg TD DAILY #14 Nitroglycerin [Nitrostat] 0.4 mg SL Q5M PRN #30 PRN Reason: Chest Pain Rivaroxaban [Xarelto] 20 mg PO DAILY #30 tablet
--- NOTE | 2017-07-27 15:27 | Discharge Summary ---
Date of Encounter: 07/27/17 Time of Encounter: 15:00 - Discharge Diagnosis (1) TIA (transient ischemic attack) Priority: Primary Status: Acute Qualifiers: Transient cerebral ischemia type: other Qualified Code(s): G45.8 - Other transient cerebral ischemic attacks and related syndromes (2) Pre-diabetes Priority: Secondary Status: Chronic (3) COPD (chronic obstructive pulmonary disease) Priority: Secondary Status: Chronic Qualifiers: COPD type: unspecified COPD Qualified Code(s): J44.9 - Chronic obstructive pulmonary disease, unspecified (4) CAD (coronary artery disease) Priority: Secondary Status: Acute Qualifiers: Coronary Disease-Associated Artery/Lesion type: unspecified vessel or lesion type [place] vs. transplanted heart: [place] heart Associated angina: angina presence unspecified Qualified Code(s): I25.10 - Atherosclerotic heart disease of [place] coronary artery without angina pectoris (5) PAD (peripheral artery disease) Priority: Secondary Status: Chronic (6) DVT prophylaxis Priority: Secondary Status: Acute (7) Atrial fibrillation with RVR Priority: Primary Status: Acute - Discharge Medications Prescriptions: Amlodipine Besylate 10 mg PO DAILY #30 Aspirin Enteric Coated [Aspirin EC] 81 mg PO DAILY #30 Atenolol [Tenormin] 50 mg PO BID #60 Atorvastatin [Lipitor] 80 mg PO HS #60 tab Lisinopril [Zestril] 20 mg PO BID #30 Nicotine Patch [Nicoderm] 21 mg TD DAILY #14 Nitroglycerin [Nitrostat] 0.4 mg SL Q5M PRN #30 PRN Reason: Chest Pain Rivaroxaban [Xarelto] 20 mg PO DAILY #30 tablet Home Medications: Albuterol Sulfate [Albuterol Inhaler] 2 puff IH Q4H PRN 07/24/17 [History] Clopidogrel [Plavix] 75 mg PO DAILY 07/24/17 [History] Ezetimibe [Zetia] 10 mg PO DAILY 07/24/17 [History] FLUoxetine HCl [Prozac] 60 mg PO DAILY 07/24/17 [History] Melatonin 5 mg PO HS 07/24/17 [History] Methylphenidate HCl [Ritalin] 20 mg PO TID 07/24/17 [History] Mirtazapine [Remeron] 15 mg PO HS 07/24/17 [History] Temazepam [Restoril] 30 mg PO HS 07/24/17 [History] diazePAM [Valium] 10 mg PO TID PRN 07/24/17 [History] Amlodipine Besylate 10 mg PO DAILY #30 07/27/17 [Rx] Aspirin Enteric Coated [Aspirin EC] 81 mg PO DAILY #30 07/27/17 [Rx] Atenolol [Tenormin] 50 mg PO BID #60 07/27/17 [Rx] Atorvastatin [Lipitor] 80 mg PO HS #60 tab 07/27/17 [Rx] Lisinopril [Zestril] 20 mg PO BID #30 07/27/17 [Rx] Nicotine Patch [Nicoderm] 21 mg TD DAILY #14 07/27/17 [Rx] Nitroglycerin [Nitrostat] 0.4 mg SL Q5M PRN #30 07/27/17 [Rx] Rivaroxaban [Xarelto] 20 mg PO DAILY #30 tablet 07/27/17 [Rx] Allergies/Adverse Reactions: 3 Allergy/AdvReac Type Severity Reaction Status Date / Time acetaminophen AdvReac Itching Verified 04/02/16 15:53 [From Darvocet-N] codeine AdvReac Itching Verified 04/02/16 15:53 propoxyphene AdvReac Itching Verified 04/02/16 15:53 [From Darvocet-N] tramadol [From Ultram] AdvReac Itching Verified 04/02/16 15:53 Procedures/tests Complete & Pending: Procedures Performed prior 72 hours Category Date Time Status CT angio neck [CT] Routine Cat Scan 07/26/17 19:00 Completed MR head/brain wo con [MR] Stat MRI 07/26/17 07:39 Completed EV carotid duplex imaging BI Routine Y 07/25/17 18:42 Completed Date of admission: 07/25/17 08:21 Primary care physician: PCP NONE Consults: 07/25/17 18:46 Consult to Social Media Project Manager [CONS] Routine Reason for SW Consult: Pt has insurance issue and run out of medications 07/26/17 14:22 Consult to Vascular Surgery [CONS] Routine Consulting Provider: V[facility] [place] Reason for Consult: Carotid stenosis Call Completed: Yes Discharging clinician: Laury Flores Anticipated date of discharge: 07/27/17 - Patient Status Disposition: Home, Self-Care Condition: Good Overall status at discharge: patient is back to baseline - Discharge Instructions Follow Up With: NONE,PCP [Primary Care Provider] - Additional Instructions: Follow-up appointments: If there is not an appointment listed below, please call your physician and schedule a follow-up appointment. If you have congestive heart failure and your symptoms return, make an appointment with your physician. Medication List: Carry an up to date list of medications you are taking at all time. We have given you an updated medication list including any new medications that you have been prescribed. Please provide that list to your primary provider Symptoms: If your condition changes or you experience any of the following symptoms, notify your physician immediately: Unusual or worsening pain, fever, persistent nausea and vomiting, bleeding, increase in swelling (especially in your legs), sudden weight gain, extreme dizziness, chest pain, increased drainage or redness from a wound or incision. Go to the emergency department if you experience a problem with breathing. Weights: If you have a history of swelling or shortness of breath, weigh yourself daily and notify your physician if you have a weight gain of two or more pounds in one day or 5 or more pounds in a week. If you experience any of the warning signs for stroke: Sudden numbness or weakness of the face, arm or leg; especially on one side of the body, sudden confusion, trouble speaking or understanding, sudden trouble seeing in one or both eyes, sudden trouble walking, dizziness, loss of balance or coordination, sudden sever headache with no cause; Call 911 or go to the emergency room. Stroke is a medical emergency. Some risk factors for stroke: Age, cigarette smoking, diabetes, excessive alcohol consumption, family history , high blood pressure, overweight, physical inactivity, prior stroke, heart attack, diagnosis of carotid artery stenosis or other artery disease. If you smoke, STOP: Smoking or tobacco use significantly increases your risk of heart and lung disease. Your chance of disease greatly increases if you continue to smoke. For more information, call the [employer] tobacco quit line for smoking cessation QUIT-NOW ( ) - Diet and Activity Activity: increase activity as tolerated Diet: diabetic diet, low salt diet Interval History: HPI: Mr. Renteria is a 62 year old male with medical history of CAD (with 9 prior stents , last cath 5 years ago), borderline DM, COPD (still smoking), and A. Fib (not anticoagulated) who presents to [facility] after having onset of chest pain earlier that afternoon. He states that it felt like a heart attack and that it was sub- sternal that radiated to his right shoulder. He describes having some tingling in his hands as well. The pain was described as 10/10 pain and pressure in quality. He was concerned that he was having a heart attack. This pain started when he was walking in the afternoon and was improved by nitroglycerin. The pain lasted for an hour total. He reports that he has been having some pain like this for sometime, but that it hsan't been this bad before. During this time however, he noticed that he was having palpitations and thought that his atrial fibrillation was acting up. During the time that he was having the chest pain, he noticed that his heart rate was elevated. When he was brought to [facility] by EMS, he was found to be in A. Fib w/ rvr. He states that he had improvement in his chest pain when his heart rate was under control. As of my time of assessment, he reports having minimal chest pain left, and feels better in general. But, he does appear to have a facial droop. He appears to have weakness on the left side of his face. In speaking with his family, the facial droop is relatively new and has been present for about a week. He states that it hasn't bothered him and he hasn't noticed any other complications other than a little blurriness in his right eye. He has not had any muscle weakness or unilateral weakness or sensation abnormalities. Hospital course: Mr. Renteria is a 62 year old male presented to emergency room for A. fib RVR, and left facial droop. Patient was treated with Cardizem drip. His A. fib RVR has been well controlled and switch to sinus rhythm. Patient has run out of his medication, especially atenolol and xarelto. 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 Other medication also prescribed for the patient. Patient's facial droop resolved spontaneously, MRI negative for infarct, consider TIA. Patient was found carotid stenosis by duplex carotid. A vascular surgeon consult was called and patient had a CTA, results shows only mild stenosis bilaterally, patient will follow up with vascular surgery as outpatient per vascular consult. I saw and examined the patient today. he is awake alert, oriented 3, denies chest pain or shortness of breath, no focal neuro deficit. Vitals are stable. Patient is stable to discharge home. Time spent discussing smoking cessation with patient: 3 to 10 minutes - Time Spent with Patient Total time spent providing and/or coordinating discharge services: 40 minutes Greater than 30 minutes - Constitutional Vitals: Temp Pulse Resp BP Pulse Ox 98.2 F 57 14 128/69 98 07/27/17 12:13 07/27/17 12:13 07/27/17 12:13 07/27/17 12:13 07/27/17 12:13 General appearance: Present: A&O X 3, pleasant, no acute distress, answers questions appropriately - Head Head exam: Present: atraumatic, normocephalic - Eye Eye exam: Present: PERRL, conjuntiva pink, sclera anicteric Pupils: Present: PERRL - Neck Neck exam general surgery: Present: supple, trachea midline. Absent: lymphadenopathy - Respiratory Respiratory exam: Present: CTAB. Absent: accessory muscle use, rales, rhonchi, wheezes - Cardiovascular Cardiovascular exam: Present: RRR, +S1, +S2. Absent: diastolic murmur, gallop, rubs, systolic murmur - GI/Abdominal GI/Abdominal exam: Present: normal bowel sounds, soft, no peritoneal signs. Absent: distended, tenderness - Extremities Exam Extremities exam: Present: warm, radial pulses palpable and symmetrical. Absent : calf tenderness, cyanotic, pedal edema - Neurological Exam Neurological exam: Present: CN II-XII intact, oriented X3, no focal deficits. Absent: pronater drift, facial droop, speech deficit - Skin Skin exam: Present: dry, intact
== END 2017-07-27 16:08 | disposition home or self-care (01) | DRG 309 ==
LOC: EMEROO 19:22 → 3BNU 19:22
PROVIDERS: ADMIT Family Medicine; ATTEND Family Medicine

== ENCOUNTER 2017-09-27 13:13 | Observation (INO) ==
--- NOTE | 2017-09-27 13:37 | Emergency Department Note ---
Disposition Clinical Impression: Chest pain Qualifiers: Chest pain type: unspecified Qualified Code(s): R07.9 - Chest pain, unspecified Disposition: Admitted As Inpatient Condition: Fair Referrals: NONE,PCP [Primary Care Provider] - Forms: ED Satisfaction Letter Time of Disposition: 13:39 Chest Pain HPI - General Chief Complaint: ED Chest Pain Stated Complaint: chest pain Time Seen by Provider: 09/27/17 13:26 Source: patient Mode of arrival: ambulatory Limitations: no limitations Vital Signs Reviewed: Yes Nursing Notes Reviewed: Yes - History of Present Illness HPI Narrative: 62-year-old with a history of 9 stents who comes in complaining of some intermittent exertional chest pain. The patient states he was hospitalized last month with Aristides BUSTOS and was treated for that but has not had a recent stress test or cardiac catheter. Pt complaint: chest pain Onset (ago): Just [employer] Duration: intermittent Onset: during exertion Pain Location: substernal, left chest Severity: mild, moderate Severity scale (1-10): 2 Quality: tightness, aching, heaviness Pain Radiation: none Improves with: nothing Worsens with: exertion Associated symptoms: Denies: nausea, vomiting Treatments prior to arrival chest pain: none - Related Data Home Medications Medication Instructions Recorded Confirmed Albuterol Sulfate [Albuterol 2 puff IH Q4H PRN 07/24/17 07/24/17 Inhaler] Clopidogrel [Plavix] 75 mg PO DAILY 07/24/17 07/24/17 Ezetimibe [Zetia] 10 mg PO DAILY 07/24/17 07/24/17 FLUoxetine HCl [Prozac] 60 mg PO DAILY 07/24/17 07/24/17 Melatonin 5 mg PO HS 07/24/17 07/24/17 Methylphenidate HCl [Ritalin] 20 mg PO TID 07/24/17 07/24/17 Mirtazapine [Remeron] 15 mg PO HS 07/24/17 07/24/17 Temazepam [Restoril] 30 mg PO HS 07/24/17 07/24/17 diazePAM [Valium] 10 mg PO TID PRN 07/24/17 07/24/17 Previous Rx's Medication Instructions Recorded Amlodipine Besylate 10 mg PO DAILY #30 07/27/17 Aspirin Enteric Coated [Aspirin EC] 81 mg PO DAILY #30 07/27/17 Atenolol [Tenormin] 50 mg PO BID #60 07/27/17 Atorvastatin [Lipitor] 80 mg PO HS #60 tab 07/27/17 Lisinopril [Zestril] 20 mg PO BID #30 07/27/17 Nicotine Patch [Nicoderm] 21 mg TD DAILY #14 07/27/17 Nitroglycerin [Nitrostat] 0.4 mg SL Q5M PRN #30 07/27/17 Rivaroxaban [Xarelto] 20 mg PO DAILY #30 tablet 07/27/17 Allergies Allergy/AdvReac Type Severity Reaction Status Date / Time acetaminophen AdvReac Itching Verified 04/02/16 15:53 [From Darvocet-N] codeine AdvReac Itching Verified 04/02/16 15:53 propoxyphene AdvReac Itching Verified 04/02/16 15:53 [From Darvocet-N] tramadol [From Ultram] AdvReac Itching Verified 04/02/16 15:53 All systems ED: reviewed and negative except as stated. Constitutional: Denies: fever, chills, weakness, weight change Eyes: Denies: eye pain, eye discharge, vision change ENT ED: Denies: ear pain, throat pain, dental pain, hearing loss, epistaxis, congestion, dysphagia Cardiovascular: Reports: chest pain. Denies: palpitations, dyspnea on exertion , edema, syncope Respiratory: Denies: cough, dyspnea, wheezes, hemoptysis, stridor Gastrointestinal: Denies: abdominal pain, nausea, vomiting, diarrhea, constipation, hematemesis, melena, hematochezia Genitourinary: Denies: urgency, dysuria, frequency, hematuria Musculoskeletal: Denies: back pain, neck pain, arthralgia, myalgia Integumentary: Denies: rash, abrasion, lesions Neurological: Denies: headache, weakness, numbness, paresthesias, confusion, abnormal gait, vertigo Psychiatric: Denies: anxiety, depression, suicidal thoughts, homicidal thoughts , auditory hallucinations, visual hallucinations Endocrine: Denies: fatigue Hematological/Lymphatic: Denies: easy bleeding, easy bruising Allergic/Immunologic: Denies: facial swelling, urticaria Chest Pain PMH - Past Medical History Medical history: Reports: arthritis, atrial fibrillation, COPD, coronary artery disease, diabetes, hyperlipidemia, hypertension Surgical history: Reports: angioplasty/stent, carotid endarterectomy Psychiatric history: Reports: anxiety, depression - Social History Smoking Status: Current every day smoker Alcohol use: Reports: occasionally Drug use: Reports: none Physical Exam - General Limitations: no limitations General appearance: alert, in no apparent distress - Head Head exam: atraumatic, normocephalic, normal inspection - Eye Eye exam: Present: normal appearance, PERRL, EOMI - ENT ENT exam: normal exam, normal oropharynx, mucous membranes moist - Neck Neck exam: Present: normal inspection, full ROM, trachea midline - Chest Chest inspection: Present: normal inspection, symmetric chest wall rise - Respiratory Respiratory exam: Present: normal lung sounds bilaterally - Cardiovascular Cardiovascular exam: Present: regular rate, normal rhythm, normal heart sounds - Abdominal Exam Abdominal exam: Present: soft, Non-Tender. Absent: tenderness, distention, guarding, rebound, rigidity - Extremities Exam Extremities exam: Present: normal inspection, full ROM. Absent: tenderness, pedal edema - Expanded Lower Extremity Exam Neurovascular/Tendon exam: Absent: motor deficit, sensory deficit, tendon deficit Gait: not tested/not observed - Back Exam Back exam: Present: normal inspection, full ROM. Absent: tenderness - Neurological Exam Neurological exam: Present: alert, oriented X3 - Psychiatric Psychiatric exam: Present: normal affect, normal mood - Skin Skin exam: Present: warm, dry, intact, normal color Course - Reevaluation(s) Reevaluation #1: 62-year-old with a history of multiple stents who comes in complaining of chest pain. Initial EKG shows no acute change, initial troponin is negative, chest x- ray is clear. Patient will be admitted for further evaluation and treatment. Time: 14:56 - Consultations Consultation #1: Discussed with Dr. Ford Time: 14:56 Vital Signs Temperature 97.8 F 09/27/17 13:18 Pulse Rate 66 09/27/17 13:18 Respiratory Rate 16 09/27/17 13:18 Blood Pressure 141/68 09/27/17 13:18 O2 Sat by Pulse Oximetry 97 09/27/17 13:18 Temperature 97.8 F 09/27/17 13:18 Pulse Rate 58 09/27/17 14:25 Respiratory Rate 14 09/27/17 14:25 Blood Pressure 114/58 09/27/17 14:25 O2 Sat by Pulse Oximetry 96 09/27/17 14:25 Oxygen Delivery Oxygen Delivery Nasal Cannula Chest Pain - Lab Data Lab results reviewed: Yes I reviewed the patient's lab results. Result diagrams: 09/27/17 13:43 09/27/17 13:43 Lab Results 09/27/17 09/27/17 09/27/17 Range/Units 13:43 13:43 13:43 WBC 8.1 (4.3-11.1) K/mcL RBC 4.66 (4.19-5.50) M/mcL Hgb 14.1 (12.9-16.9) g/dL Hct 42.0 (37.5-50.1) % MCV 90.1 (83.0-100.0) fL MCH 30.3 (28.0-33.3) pg MCHC 33.6 (31.6-35.5) g/dL RDW 13.2 (11.5-14.5) % Plt Count 293 (140-400) K/mcL MPV 8.8 L (9.4-12.4) fL Immature Gran % 0.4 (0-4) % Seg Neutrophils % 64.5 % Lymphocytes % 25.3 % Monocytes % 5.9 % Eosinophils % 3.2 % Basophils % 0.7 % Neutrophils # 5.2 (1.6-8.9) K/mcL Lymphocytes # 2.1 (0.6-4.6) K/mcL Monocytes # 0.5 (0.0-1.3) K/mcL Eosinophils # 0.3 (0.0-0.6) K/mcL Basophils # 0.1 (0.0-0.2) K/mcL PT 11.3 (9.4-12.1) Seconds INR 1.1 APTT 36.1 H (26.0-36.0) Seconds Sodium 139 (136-145) mEq/L Potassium 3.7 (3.5-4.5) mEq/L Chloride 105 (98-109) mEq/L Carbon Dioxide 25 (19-29) mEq/L BUN 17 (8-26) mg/dL Creatinine 0.80 (0.72-1.25) mg/dL Est GFR ( Amer) > 60 (> 60) Est GFR (Non-Af Amer) > 60 (> 60) BUN/Creatinine Ratio 21 (6-26) Glucose 88 (70-99) mg/dL Calculated Osmolality 289 (280-300) Calcium 10.0 (8.6-10.8) mg/dL Troponin I (0-0.03) ng/mL 09/27/17 Range/Units 13:43 WBC (4.3-11.1) K/mcL RBC (4.19-5.50) M/mcL Hgb (12.9-16.9) g/dL Hct (37.5-50.1) % MCV (83.0-100.0) fL MCH (28.0-33.3) pg MCHC (31.6-35.5) g/dL RDW (11.5-14.5) % Plt Count (140-400) K/mcL MPV (9.4-12.4) fL Immature Gran % (0-4) % Seg Neutrophils % % Lymphocytes % % Monocytes % % Eosinophils % % Basophils % % Neutrophils # (1.6-8.9) K/mcL Lymphocytes # (0.6-4.6) K/mcL Monocytes # (0.0-1.3) K/mcL Eosinophils # (0.0-0.6) K/mcL Basophils # (0.0-0.2) K/mcL PT (9.4-12.1) Seconds INR APTT (26.0-36.0) Seconds Sodium (136-145) mEq/L Potassium (3.5-4.5) mEq/L Chloride (98-109) mEq/L Carbon Dioxide (19-29) mEq/L BUN (8-26) mg/dL Creatinine (0.72-1.25) mg/dL Est GFR ( Amer) (> 60) Est GFR (Non-Af Amer) (> 60) BUN/Creatinine Ratio (6-26) Glucose (70-99) mg/dL Calculated Osmolality (280-300) Calcium (8.6-10.8) mg/dL Troponin I 0.00 (0-0.03) ng/mL - Radiology Data Radiology results reviewed: Yes I reviewed the patient's radiology results. Chest X-Ray 09/27/17 13:22 IMPRESSION: Stable chest with no acute cardiopulmonary process. D/ / Ino Brennan MD / Ino Brennan MD Interpreting Provider: Ino Brennan MD - EKG Data EKG attestation: Yes I reviewed and interpreted this EKG. EKG shows normal: sinus rhythm Rate: normal Rhythm: NSR Interpretation: no acute changes Heart Score - Score History: Moderately Suspicious EKG: Non Specific repolarisation Disturbance Age: 45-65 Risk Factors: Equal/Greater than 3 risk factor or history of atherosclerotic disease Troponin: Less than normal limit HEART Score Total: 5
[2017-09-27 13:50] LABS: Basophils # 0.1 K/mcL (0.0-0.2); Basophils % 0.7 %; Eosinophils # 0.3 K/mcL (0.0-0.6); Eosinophils % 3.2 %; Hemoglobin 14.1 g/dL (12.9-16.9); Immature Granulocytes % 0.4 % (0-4); Lymphocytes # 2.1 K/mcL (0.6-4.6); Lymphocytes % 25.3 %; Mean Corpuscular HGB Conc 33.6 g/dL (31.6-35.5); Mean Corpuscular Hemoglobin 30.3 pg (28.0-33.3); Mean Corpuscular Volume 90.1 fL (83.0-100.0); Mean Platelet Volume 8.8 fL (9.4-12.4); Monocytes # 0.5 K/mcL (0.0-1.3); Monocytes % 5.9 %; Neutrophils # 5.2 K/mcL (1.6-8.9); Platelet Count 293 K/mcL (140-400); Red Blood Count 4.66 M/mcL (4.19-5.50); Red Cell Distribution Width 13.2 % (11.5-14.5); Segmented Neutrophils % 64.5 %
[2017-09-27 13:59] LABS: INR 1.1; Prothrombin Time 11.3 Seconds (9.4-12.1)
[2017-09-27 14:00] LABS: BUN/Creatinine Ratio 21 (6-26); Blood Urea Nitrogen 17 mg/dL (8-26); Carbon Dioxide 25 mEq/L (19-29); Chloride 105 mEq/L (98-109); Glucose 88 mg/dL (70-99); Osmolality,Calculated 289 (280-300); Potassium 3.7 mEq/L (3.5-4.5); eGFR For African Americans > 60 (> 60); eGFR For Non-African Americans > 60 (> 60)
[2017-09-27 14:01] LABS: Sodium 139 mEq/L (136-145)
[2017-09-27 14:02] LABS: Activated Partial Thrombo Time 36.1 Seconds (26.0-36.0)
[2017-09-27] MEDS ORDERED: Nicotine 21 MG PATCH.TD24 TD STA (15:02)
[2017-09-27] MEDS ORDERED: Naloxone 0.4 MG/ML INJ IVP PRN (17:29)
[2017-09-27] MEDS ORDERED: Nitroglycerin 0.4 MG TAB.SUBL SL PRN (17:36)
--- NOTE | 2017-09-27 17:48 | Internal Med History&Physical ---
<DaiChepe Gorman - Last Filed: 09/27/17 18:44> Date of Encounter: 09/27/17 Time of Encounter: 17:00 Assessment and Plan (1) Chest pain Current visit: Yes Status: Acute Acute on chronic chest pain that the pt. states has been occurring intermittently over the past two weeks and has worsened. Describes as centralized pressure. Denies recent stress test. Hx of angioplasty w/stent placement x8. Echocardiogram on July 25 showed LVEF of 60-65%, normal LV chamber size and function, asymmetric hypertrophy of the basal septum, mild left ventricular diastolic dysfunction, normal right ventricular structure and function, mild pulmonic regurgitation, and no evidence of pulmonary hypertension. Initial troponin 0.00. Trend x2. Continuous cardiac telemetry. Will consult cardiology if troponin level becomes elevated. Continue Xarelto, Plavix, aspirin therapy, lisinopril, atenolol, amlodipine, and Lipitor. Pt. is at high risk for cardiac event based on current sx, hx of multiple stents, and risk factors. Observation. Qualifiers: Chest pain type: other chest pain Qualified Code(s): R07.89 - Other chest pain; R07.8 - Other chest pain (2) Dizziness Current visit: Yes Status: Acute Acute dizziness d/t SOB r/t COPD versus bilateral stenoses in carotids. Bilateral carotid Doppler duplex imaging on July 25 showed right proximal ICA with severe stenosis of 60-79% and left mid ICA with moderate stenosis of 40 -59%. Falls/safety precautions. PT/OT consults ordered to assess pt. for ambulation strength and stability for post-discharge planning. (3) HLD (hyperlipidemia) Current visit: Yes Status: Chronic Hx of chronic HLD. Lipid panel in a.m. labs. Continue Lipitor. Qualifiers: Hyperlipidemia type: pure hypercholesterolemia Qualified Code(s): E78.00 - Pure hypercholesterolemia, unspecified; E78.0 - Pure hypercholesterolemia (4) HTN (hypertension) Current visit: Yes Status: Chronic Hx of chronic HTN. Monitor pt. and VS. Continue patient's lisinopril, atenolol, and amlodipine. Qualifiers: Hypertension type: essential hypertension Qualified Code(s): I10 - Essential (primary) hypertension (5) A-fib Current visit: Yes Status: Chronic Hx of chronic paroxysmal atrial fibrillation. Pt. currently in sinus rhythm. Continue Xarelto. Qualifiers: Atrial fibrillation type: paroxysmal Qualified Code(s): I48.0 - Paroxysmal atrial fibrillation (6) CAD (coronary artery disease) Current visit: Yes Status: Chronic Hx of chronic CAD. Pt. has hx of chronic paroxysmal atrial fibrillation, angioplasty w/stents x8, and risk factors of HTN and HLD. Continuous cardiac telemetry. Continue patient's Xarelto, Plavix, aspirin therapy, lisinopril, atenolol, amlodipine, and Lipitor. Qualifiers: Coronary Disease-Associated Artery/Lesion type: unspecified vessel or lesion type [place] vs. transplanted heart: [place] heart Associated angina: angina presence unspecified Qualified Code(s): I25.10 - Atherosclerotic heart disease of [place] coronary artery without angina pectoris (7) Pre-diabetes Current visit: Yes Status: Chronic Pt. states he has hx of pre-diabetes but does not currently take any PO medications or insulin. BG checks Q6HR. Will add low-dose correction sliding scale insulin if warranted. A1c in a.m. labs. (8) Anxiety and depression Current visit: Yes Status: Chronic Hx of chronic anxiety and depression. Continue patient's Remeron, Ritalin, Prozac, Zetia, and Valium. (9) DVT prophylaxis Current visit: Yes Status: Acute Continue patient's Xarelto for DVT prophylaxis. Monitor pt. for signs of bleeding. Internal Medicine - H&P: HPI Chief complaint: Chest pain Admitted From: Emergency Dept Plans for Post Hospital Care: Home History of present illness: Mr. Renteria is a 62 year old male with medical hx of arthritis, atrial fibrillation, COPD, CAD, diabetes, hyperlipidemia, hypertension, and history of previous angioplasty with stents x8 and bilateral carotid endarterectomy presents from the ED with chief complaints of chest pain, SOB, and dizziness for the past two days. Patient reports that chest pain has been intermittent for the past two weeks and he describes it as centralized pressure in his chest that becomes worse w/exertion. Pt. was last seen here on July 25 when he was in atrial fibrillation and placed on a cardizem drip. Echocardiogram during this visit showed 60-65% LVEF, normal LV chamber size and function, QUEENIE inhibitor hypertrophy of the basal septum, mild left ventricular diastolic dysfunction, normal right ventricular ejection function, mild pulmonic regurgitation, and no evidence of pulmonary hypertension. Carotid Dopplers showed right proximal ICA with severe 60-79% stenosis and the left mid ICA with moderate 40-59% stenosis. Patient denies recent illness, fever, chills, nausea , vomiting, abdominal pain, palpitations, headache, changes in vision, unusual bleeding, numbness, tingling, pre-syncope, or syncope. Past Med Surg Social Fam HX - Past Medical History Source: patient, old records reviewed Medical history: arthritis, atrial fibrillation, COPD, coronary artery disease, diabetes, hyperlipidemia, hypertension Psychiatric history: anxiety, depression - Past Surgical History Surgical History: angioplasty/stent (x8), carotid endarterectomy - Social History Smoking Status: Current every day smoker Packs per day: 1/2 PPD Smokeless Tobacco Status: No Alcohol use: occasionally Drug use: none Current living situation: Homeless Activity Level: Independent ambulation Recent Out of Country Travel Within the Last 8 Weeks: No Exposure or Possible Exposure to Illness During Travel: No - Family History Father Race: Family Member Ethnicity: Non- Living Status: Age at : 62 Cause of : Massive stroke Hx Family Cardiac Disorders: Yes (Stroke, ) Hx Family Cancer: Yes (Lung) Hx Family Endocrine Disorder: Yes (Cirrhosis) Mother Race: Family Member Ethnicity: Non- Living Status: Age at : 82 Cause of : CHF Hx Family Cardiac Disorders: Yes (CHF, Stents, TIAs) Sister Race: Family Member Ethnicity: Non- Living Status: Age at : 80 Cause of : Cervical cancer Hx Family Cancer: Yes (Cervical) Internal Medicine - H&P: Meds Albuterol Sulfate [Albuterol Inhaler] 2 puff IH Q4H PRN 07/24/17 [History] Clopidogrel [Plavix] 75 mg PO DAILY 07/24/17 [History] Ezetimibe [Zetia] 10 mg PO DAILY 07/24/17 [History] FLUoxetine HCl [Prozac] 60 mg PO DAILY 07/24/17 [History] Melatonin 5 mg PO HS 07/24/17 [History] Methylphenidate HCl [Ritalin] 20 mg PO BID 07/24/17 [History] Mirtazapine [Remeron] 15 mg PO HS 07/24/17 [History] Temazepam [Restoril] 30 mg PO HS 07/24/17 [History] diazePAM [Valium] 10 mg PO TID PRN 07/24/17 [History] Amlodipine Besylate 10 mg PO DAILY #30 07/27/17 [Rx] Aspirin Enteric Coated [Aspirin EC] 81 mg PO DAILY #30 07/27/17 [Rx] Atenolol [Tenormin] 50 mg PO BID #60 07/27/17 [Rx] Atorvastatin [Lipitor] 80 mg PO HS #60 tab 07/27/17 [Rx] Lisinopril [Zestril] 20 mg PO BID #30 07/27/17 [Rx] Nitroglycerin [Nitrostat] 0.4 mg SL Q5M PRN #30 07/27/17 [Rx] Rivaroxaban [Xarelto] 20 mg PO DAILY #30 tablet 07/27/17 [Rx] HYDROcodone/Acet 10/325 mg [[place] 10-325 mg] 1 tab PO Q6HR PRN 09/27/17 [History ] 3 Allergy/AdvReac Type Severity Reaction Status Date / Time acetaminophen AdvReac Itching Verified 09/28/17 11:42 [From Darvocet-N] codeine AdvReac Itching Verified 04/02/16 15:53 propoxyphene AdvReac Itching Verified 04/02/16 15:53 [From Darvocet-N] tramadol [From Ultram] AdvReac Itching Verified 04/02/16 15:53 All Systems PM: A 10-system review of systems was performed and is negative for pertinent findings except as documented above in the HPI. - Constitutional Constitutional: no chills, no fever(s), no night sweats - EENT Eyes: no change in vision, no discharge, no pain, no photophobia Ears: no ear discharge, no ear pain, no tinnitus Nose, mouth and throat: no dysphagia, no nasal discharge, no neck pain, no sore throat - Breasts Breasts: as per HPI - Cardiovascular Cardiovascular ROS IM: as per HPI, chest pain (Pressure centralized in chest), dyspnea, dyspnea on exertion, lightheadedness, no diaphoresis, no palpitations, no syncope - Respiratory Respiratory: as per HPI, dyspnea, dyspnea on exertion - Gastrointestinal Gastrointestinal: no abdominal pain, no diarrhea, no hematemesis, no hematochezia, no melena, no nausea, no vomiting - Genitourinary Genitourinary ROS male: as per HPI - Musculoskeletal Musculoskeletal ROS IM: no numbness, no tingling - Integumentary Integumentary IM: no rash, no unusual bruising - Neurological Neurological ROS: no confusion, no convulsions, no focal weakness, no numbness, no tingling, no tremor(s) - Psychiatric Psychiatric: as per HPI, anxiety, depression - Endocrine Endocrine IM: as per HPI - Hematologic/Lymphatic Hematologic/Lymphatic: no easy bruising - Allergic/Immunologic Allergic/Immunologic: as per HPI - Constitutional Vitals: Temp Pulse Resp BP Pulse Ox 97.9 F 58 18 123/63 98 09/27/17 17:08 09/27/17 17:09 09/27/17 17:08 09/27/17 17:09 09/27/17 17:08 General appearance: Present: cooperative, A&O X 3, pleasant, no acute distress, underweight, answers questions appropriately - Head Head exam: Present: atraumatic, normal inspection, normocephalic - Eye Eye exam: Present: PERRL, conjuntiva pink, sclera anicteric Pupils: Present: PERRL - ENT ENT exam: Present: normal exam - Neck Neck exam general surgery: Present: normal inspection, supple, trachea midline. Absent: lymphadenopathy - Respiratory Respiratory exam: Present: CTAB. Absent: accessory muscle use, rales, rhonchi, wheezes - Cardiovascular Cardiovascular exam: Present: RRR, +S1, +S2. Absent: diastolic murmur, gallop, rubs, systolic murmur - GI/Abdominal GI/Abdominal exam: Present: normal bowel sounds, soft, no peritoneal signs. Absent: distended, tenderness - Rectal Rectal exam: Present: deferred - Additional comments: exam deferred. - Extremities Exam Extremities exam: Present: warm, radial pulses palpable and symmetrical. Absent : calf tenderness, cyanotic, pedal edema - Back Exam Back exam: Present: normal inspection - Neurological Exam Neurological exam: Present: CN II-XII intact, oriented X3, no focal deficits. Absent: pronater drift, facial droop, speech deficit - Psychiatric Psychiatric exam: Present: normal affect, normal mood - Skin Skin exam: Present: dry, intact Internal Med - H&P Results - Labs CBC & Chem 7: 09/27/17 13:43 09/27/17 13:43 - EKG Data EKG shows normal: sinus rhythm - EKG Data Prior EKG available for review: yes EKG comments: 09/27/17 18:05 EKG dated 07/25/17 shows sinus bradycardia with prolonged QT interval. EKG dated 09/27/17 shows sinus rhythm with moderate voltage criteria for LVH. Consider normal variant. - Diagnostic Studies Chest x-ray Additional comments: Impressions Chest X-Ray 09/27/17 13:22 IMPRESSION: Stable chest with no acute cardiopulmonary process. D/ / Ino Brennan MD / Ino Brennan MD Interpreting Provider: Ino Brennan MD <Phani Ford P - Last Filed: 09/28/17 12:06> Date of Encounter: 09/28/17 Internal Medicine - H&P: HPI History of present illness: Mr. Renteria is a 62 year old male All Systems PM: A 10-system review of systems was performed and is negative for pertinent findings except as documented above in the HPI. - Constitutional Vitals: Temp Pulse Resp BP Pulse Ox 97.7 F 52 16 167/60 100 09/28/17 11:29 09/28/17 11:29 09/28/17 11:29 09/28/17 11:29 09/28/17 11:29 Internal Med - H&P Results - Labs CBC & Chem 7: 09/28/17 00:25 09/28/17 00:25 Labs: Short CBC 09/28/17 Range/Units 00:25 WBC 6.0 (4.3-11.1) K/mcL Hgb 11.1 L D (12.9-16.9) g/dL Hct 32.3 L (37.5-50.1) % Plt Count 226 (140-400) K/mcL Neutrophils # 3.8 (1.6-8.9) K/mcL BMP 09/28/17 00:25 Sodium 138 Potassium 3.8 Chloride 108 Carbon Dioxide 24 BUN 17 Creatinine 0.79 Glucose 147 H Calcium 8.9 Cardiac Enzymes 09/27/17 09/28/17 Range/Units 17:43 00:25 Troponin I 0.00 0.00 (0-0.03) ng/mL Liver Function 09/28/17 Range/Units 00:25 Total Bilirubin 0.2 (0.2-1.2) mg/dL AST 13 (5-34) Units/L ALT 12 (0-55) Units/L Alkaline Phosphatase 92 (38-126) Units/L Albumin 2.9 L (3.5-5.0) g/dL - Attending Attestation I examined this patient and my medical decision-making was reviewed with the Resident Physician/INSTRUCTION DEAN. I agree with the documented findings, disposition and treatment plan as described except to the extent set forth below.
[2017-09-27] MEDS: Melatonin 3 MG TABLET PO SCH (21:55)
[2017-09-27] MEDS: Methylphenidate HCl 10 MG TABLET PO SCH (21:56)
[2017-09-27] MEDS: Temazepam 15 MG CAPSULE PO SCH (21:56)
[2017-09-27] MEDS: Mirtazapine 15 MG TABLET PO SCH (21:56)
[2017-09-27] MEDS: Lisinopril 20 MG TABLET PO SCH (21:56)
[2017-09-27] MEDS: *HR* HYDROcodone/Acet 10/325 mg TABLET PO PRN (21:57)
[2017-09-27] MEDS: Ipratropium/Albuterol Neb 3 ML IH SCH (22:41)
[2017-09-28 01:06] LABS: Basophils % 0.5 %; Eosinophils # 0.3 K/mcL (0.0-0.6); Eosinophils % 4.2 %; Hematocrit 32.3 % (37.5-50.1); Immature Granulocytes % 0.3 % (0-4); Lymphocytes # 1.4 K/mcL (0.6-4.6); Lymphocytes % 23.7 %; Mean Corpuscular HGB Conc 34.4 g/dL (31.6-35.5); Mean Corpuscular Hemoglobin 31.1 pg (28.0-33.3); Mean Corpuscular Volume 90.5 fL (83.0-100.0); Mean Platelet Volume 9.2 fL (9.4-12.4); Monocytes # 0.5 K/mcL (0.0-1.3); Monocytes % 7.7 %; Neutrophils # 3.8 K/mcL (1.6-8.9); Platelet Count 226 K/mcL (140-400); Red Blood Count 3.57 M/mcL (4.19-5.50); Red Cell Distribution Width 13.1 % (11.5-14.5); Segmented Neutrophils % 63.6 %
[2017-09-28 01:20] LABS: Hemoglobin 11.1 g/dL (12.9-16.9)
[2017-09-28 01:25] LABS: INR 1.1; Prothrombin Time 11.4 Seconds (9.4-12.1)
[2017-09-28 01:26] LABS: Alanine Aminotransferase 12 Units/L (0-55); Albumin 2.9 g/dL (3.5-5.0); Alkaline Phosphatase 92 Units/L (38-126); Aspartate Amino Transferase 13 Units/L (5-34); BUN/Creatinine Ratio 22 (6-26); Bilirubin,Total 0.2 mg/dL (0.2-1.2); Blood Urea Nitrogen 17 mg/dL (8-26); Calcium 8.9 mg/dL (8.6-10.8); Carbon Dioxide 24 mEq/L (19-29); Chloride 108 mEq/L (98-109); Chol/HDL Ratio 7.4 (0-4.9); Cholesterol 228 mg/dL (< 200); Glucose 147 mg/dL (70-99); HDL Cholesterol 31 mg/dL (40-59); LDL Cholesterol,Calculated 159 mg/dL (0-99); Magnesium 2.1 mg/dL (1.6-2.6); Osmolality,Calculated 290 (280-300); Potassium 3.8 mEq/L (3.5-4.5); Sodium 138 mEq/L (136-145); Total Protein 5.9 g/dL (6.0-8.3); Triglycerides 188 mg/dL (< 150); eGFR For African Americans > 60 (> 60); eGFR For Non-African Americans > 60 (> 60)
[2017-09-28 01:41] LABS: Hemoglobin A1C 4.9 %
[2017-09-28] MEDS: Ipratropium/Albuterol Neb 3 ML IH SCH ×4 (04:02→22:03)
[2017-09-28] MEDS: *HR* HYDROcodone/Acet 10/325 mg TABLET PO PRN ×3 (08:55→22:01)
[2017-09-28] MEDS ORDERED: *HR* Rivaroxaban 10 MG TABLET PO SCH (09:00)
[2017-09-28] MEDS ORDERED: Regadenoson 0.4 MG/5 ML SYRINGE IVP ONE (10:05)
[2017-09-28] MEDS ORDERED: Acetaminophen 325 MG TABLET PO PRN (11:39)
[2017-09-28] MEDS: Aspirin Enteric Coated 81 MG Tablet PO SCH (12:41)
[2017-09-28] MEDS: FLUoxetine 20 MG CAPSULE PO SCH (12:41)
[2017-09-28] MEDS: Methylphenidate HCl 10 MG TABLET PO SCH ×2 (12:41→22:43)
[2017-09-28] MEDS: Lisinopril 20 MG TABLET PO SCH ×2 (12:41→20:41)
[2017-09-28] MEDS: amLODIPine 5 MG TABLET PO SCH (12:42)
[2017-09-28] MEDS: Nicotine 14 MG PATCH.TD24 TD SCH (12:42)
--- NOTE | 2017-09-28 14:26 | Cardiology Consult Note ---
<Sally Maza - Last Filed: 09/28/17 14:35> Date of Encounter: 09/28/17 Time of Encounter: 14:00 Assessment and Plan (1) Chest pain Current Visit: Yes Status: Acute Per cardiology: -ADmitted with typical chest pain symptoms. Worsened with exertion, relieved with rest and nitro. -Troponins negative x3. -ECG with SR, changes noted to V2 and V3. -Stress this admission negative for ischemia or infarct. -States stresses are always negative and then requires coronary intervention. -Denies current chest pain. -Of note, received xarelto 20mg this afternoon. -Plan for [facility] possibly tomorrow. -Will hold xarelto. -WIll make NPO after midnight. -Will continue to monitor. Qualifiers: Chest pain type: other chest pain Qualified Code(s): R07.89 - Other chest pain; R07.8 - Other chest pain (2) CAD (coronary artery disease) Current Visit: Yes Status: Chronic Per cardiology: -KNown CAD with multiple PCIs. -Last [facility] 2011 with 30% proximal LAD, pre-existing stents in proximal circumflex patent, proximal RCA with patent stents, 30-40% mid RCA. -Reports similar symptoms to previous angina. -PLan for [facility] tomorrow. Qualifiers: Coronary Disease-Associated Artery/Lesion type: [place] artery [place] vs. transplanted heart: [place] heart Associated angina: angina presence unspecified Qualified Code(s): I25.10 - Atherosclerotic heart disease of [place] coronary artery without angina pectoris (3) A-fib Current Visit: Yes Status: Chronic Per cardiology: -KNown PAF. -ON beta blcoker. -On xarelto. -No atrial fibrillation noted per telemetry. -Will hold xarelto tomorrow for [facility]. -WIll continue to monitor. Qualifiers: Atrial fibrillation type: paroxysmal Qualified Code(s): I48.0 - Paroxysmal atrial fibrillation (4) Tobacco abuse Current Visit: No Status: Chronic Per cardiology: -Reports smoking about a half a pack of cigarettes per day. -I spent 3-5 minutes reviewing smoking cessation with pateint. Discussion w patient/family: The assessment and plan as outlined above was discussed with the patient and/or family members who expressed understanding and agreement. All questions were answered. Thank you for involving us in the care of your patient. Please call with any questions. Discussed and reviewed with . History of Present Illness Consult date: 09/28/17 Requesting physician: Sarwat Breaux Consult reason: CP Chief complaint: chest pain History of present illness: Mr. Renteria is a 62 year old male with a relevant past medical history of CAD s/p multiple PCIs, PAF on xarelto, HTN, hyperlipidemia, COPD, carotid stenosis s/p CEA, PVD, tobacco abuse. Patient states he has been having intermittent chest pain that occurs with exertion and relieved with rest and nitroglycerin. Patient reports symptoms similar to previous anginal equivalent. Patient denies shortness of breath or fatigue. Patient states he has been under a lot of stress lately and has lost his home. Patient states he has been living at the homeless halfway. Past Med Surg Social Fam HX - Past Medical History Attestation: Yes The following information was validated with the patient. Source: patient, old records reviewed, obtained from family Medical history: arthritis, atrial fibrillation, COPD, coronary artery disease, diabetes, hyperlipidemia, hypertension Psychiatric history: anxiety, depression - Past Surgical History Surgical History: angioplasty/stent (x8), carotid endarterectomy - Social History Smoking Status: Current every day smoker Packs per day: 1/2 PPD Smokeless Tobacco Status: No Alcohol use: occasionally Drug use: none - Family History Father Race: Family Member Ethnicity: Non- Living Status: Age at : 62 Cause of : Massive stroke Hx Family Cardiac Disorders: Yes (Stroke, ) Hx Family Cancer: Yes (Lung) Hx Family Endocrine Disorder: Yes (Cirrhosis) Mother Race: Family Member Ethnicity: Non- Living Status: Age at : 82 Cause of : CHF Hx Family Cardiac Disorders: Yes (CHF, Stents, TIAs) Sister Race: Family Member Ethnicity: Non- Living Status: Age at : 80 Cause of : Cervical cancer Hx Family Cancer: Yes (Cervical) Medications and Allergies Albuterol Sulfate [Albuterol Inhaler] 2 puff IH Q4H PRN 07/24/17 [History] Clopidogrel [Plavix] 75 mg PO DAILY 07/24/17 [History] Ezetimibe [Zetia] 10 mg PO DAILY 07/24/17 [History] FLUoxetine HCl [Prozac] 60 mg PO DAILY 07/24/17 [History] Melatonin 5 mg PO HS 07/24/17 [History] Methylphenidate HCl [Ritalin] 20 mg PO BID 07/24/17 [History] Mirtazapine [Remeron] 15 mg PO HS 07/24/17 [History] Temazepam [Restoril] 30 mg PO HS 07/24/17 [History] diazePAM [Valium] 10 mg PO TID PRN 07/24/17 [History] Amlodipine Besylate 10 mg PO DAILY #30 07/27/17 [Rx] Aspirin Enteric Coated [Aspirin EC] 81 mg PO DAILY #30 07/27/17 [Rx] Atenolol [Tenormin] 50 mg PO BID #60 07/27/17 [Rx] Atorvastatin [Lipitor] 80 mg PO HS #60 tab 07/27/17 [Rx] Lisinopril [Zestril] 20 mg PO BID #30 07/27/17 [Rx] Nitroglycerin [Nitrostat] 0.4 mg SL Q5M PRN #30 07/27/17 [Rx] Rivaroxaban [Xarelto] 20 mg PO DAILY #30 tablet 07/27/17 [Rx] HYDROcodone/Acet 10/325 mg [[place] 10-325 mg] 1 tab PO Q6HR PRN 09/27/17 [History ] 3 Allergy/AdvReac Type Severity Reaction Status Date / Time acetaminophen AdvReac Itching Verified 09/28/17 11:42 [From Darvocet-N] codeine AdvReac Itching Verified 04/02/16 15:53 propoxyphene AdvReac Itching Verified 04/02/16 15:53 [From Darvocet-N] tramadol [From Ultram] AdvReac Itching Verified 04/02/16 15:53 All Systems Review: A 10-system review of systems was performed and is negative for pertinent findings except as documented above in the HPI. - Cardiovascular Cardiovascular: as per HPI, chest pain with exertion Physical Examination Vital Signs, Last 4 Hours Temp Pulse Resp BP Pulse Ox 09/28/17 11:29 97.7 F 52 16 167/60 100 General: Conversant, No Apparent Distress HEENT: Atraumatic, Normocephaly, Mucus Membranes Moist Neck: No JVD, Normal carotid pulses Cardiac: Reg Rate and Rhythm, Normal S1 and S2, No Murmur Lungs: Normal Breath Sounds, No Wheeze, Rales, Rhonchi Neuro: Alert and responsive, No focal deficits noted Abdomen: Soft, Non-Tender Skin: No rashes noted on visualized skin Musculoskeletal: No Chest Wall Tenderness Extremities: No Clubbing, No Cyanosis, No Edema, Normal Pulses Results 09/28/17 00:25 09/28/17 00:25 Lab Results Active Medications Acetaminophen (Tylenol) 650 mg PO Q6HR PRN PRN Reason: Pain Stop: 03/30/18 11:40 Last Admin: 09/28/17 12:41 Dose: 650 mg Hydrocodone Bitart/Acetaminophen ([place]clean 10-325 Mg) 1 each PO Q6H PRN PRN Reason: Severe Pain Stop: 03/29/18 20:47 Last Admin: 09/28/17 08:55 Dose: 1 each Albuterol/Ipratropium (Duoneb) 3 ml IH [id number] STEVEN Stop: 03/29/18 22:01 Last Admin: 09/28/17 10:57 Dose: Not Given Amlodipine Besylate (Norvasc) 10 mg PO DAILY STEVEN Stop: 03/30/18 09:01 Last Admin: 09/28/17 12:42 Dose: 10 mg Aspirin (Aspirin Ec) 81 mg PO DAILY STEVEN Stop: 03/30/18 09:01 Last Admin: 09/28/17 12:41 Dose: 81 mg Atenolol (Tenormin) 50 mg PO BID [facility] Stop: 03/29/18 21:01 Last Admin: 09/28/17 12:42 Dose: Not Given Atorvastatin Calcium (Lipitor) 80 mg PO HS STEVEN Stop: 03/29/18 21:01 Last Admin: 09/27/17 21:56 Dose: 80 mg Clopidogrel Bisulfate (Plavix) 75 mg PO DAILY STEVEN Stop: 03/30/18 09:01 Last Admin: 09/28/17 12:41 Dose: 75 mg Diazepam (Valium) 10 mg PO TID PRN PRN Reason: Anxiety Stop: 03/29/18 17:37 Fluoxetine HCl (Prozac) 60 mg PO DAILY [facility] PRN Reason: Protocol Stop: 03/30/18 09:01 Last Admin: 09/28/17 12:41 Dose: 60 mg Lisinopril (Zestril) 20 mg PO BID [facility] PRN Reason: Protocol Stop: 03/29/18 21:01 Last Admin: 09/28/17 12:41 Dose: 20 mg Melatonin (Melatonin) 6 mg PO HS [facility] Stop: 03/29/18 21:01 Last Admin: 09/27/17 21:55 Dose: 6 mg Methylphenidate HCl (Ritalin) 20 mg PO BID [facility] Stop: 03/29/18 21:01 Last Admin: 09/28/17 12:41 Dose: 20 mg Mirtazapine (Remeron) 15 mg PO HS [facility] Stop: 03/29/18 21:01 Last Admin: 09/27/17 21:56 Dose: 15 mg Naloxone HCl (Narcan) 0.4 mg IVP Q2MIN PRN PRN Reason: Opioid Reversal Stop: 03/29/18 17:30 Nicotine (Nicoderm) 14 mg TD DAILY [facility] PRN Reason: Protocol Stop: 03/30/18 09:01 Last Admin: 09/28/17 12:42 Dose: 14 mg Nitroglycerin (Nitroglycerin) 0.4 mg SL Q5M PRN PRN Reason: Chest Pain Stop: 03/29/18 17:37 Ondansetron HCl (Zofran) 4 mg IVP Q8HR PRN PRN Reason: Nausea And Vomiting Stop: 03/29/18 17:30 Pharmacy Profile Note (Patient Taking Own Medication) 0 each PO DAILY [facility] Stop: 03/30/18 09:01 Last Admin: 09/28/17 12:42 Dose: Not Given Temazepam (Restoril) 30 mg PO [facility] Stop: 03/29/18 21:01 Last Admin: 09/27/17 21:56 Dose: 30 mg Laboratory Tests 09/27/17 09/27/17 09/28/17 13:43 17:43 00:25 Hgb Creatinine Troponin I 0.00 0.00 0.00 LDL Cholesterol, Calc 09/28/17 09/28/17 00:25 00:25 Hgb 11.1 L D Creatinine 0.79 Troponin I LDL Cholesterol, Calc 159 H - Imaging and Cardiology Chest Xray: report reviewed Stress Test: report reviewed Echo: report reviewed Cardiac cath: report reviewed - EKG Interpretation EKG results cardiology: personally reviewed (ECG with SR, HR 61.), other ( Telemetry reviewed with average HR previous 12 hours noted to be 51, sinus bradycardia. PVCS and PACs noted.) Consult Discharge Plan - Plan Referrals: NONE,PCP [Primary Care Provider] - <EvetteroxieTrish - Last Filed: 09/28/17 16:31> Date of Encounter: 09/28/17 - Attending Attestation I have personally performed a face to face evaluation on this patient. I have reviewed and agree with the care plan with TEST SKEIN WINDER: Mr. Renteria presents with exertional chest pain that developed over the past 2 months. On Sunday he reported several episodes during the day also occurring at rest. ECG demonstrates new changes in V2-V3. Troponins negative. Patient has known CAD having undergone PCI remotely (last cath 2011 - patent stents). Symptoms are concerning for unstable angina. He continues to smoke. We have discussed consideration for proceeding with [facility]. The R/B/A of the procedure were discussed with the patient who expressed understanding and verbalized agreement to proceed. We will stop xarelto in anticipation of [facility] tomorrow. Continue asa, statin, plavix, BB. Patient currently chest pain free. Assessment and Plan Discussion w patient/family: The assessment and plan as outlined above was discussed with the patient and/or family members who expressed understanding and agreement. All questions were answered. Thank you for involving us in the care of your patient. Please call with any questions. History of Present Illness History of present illness: Mr. Renteria is a 62 year old male All Systems Review: A 10-system review of systems was performed and is negative for pertinent findings except as documented above in the HPI. Physical Examination Vital Signs, Last 4 Hours Temp Pulse Resp BP Pulse Ox 09/28/17 16:21 16 97 09/28/17 15:32 97.7 F 58 16 127/63 97 Results 09/28/17 00:25 09/28/17 00:25 Lab Results 09/27/17 09/28/17 09/28/17 17:43 00:25 00:25 WBC 6.0 Hgb 11.1 L D Hct 32.3 L Plt Count 226 INR APTT Sodium Potassium Chloride Carbon Dioxide BUN Creatinine Glucose Calcium Magnesium Total Bilirubin AST ALT Alkaline Phosphatase Troponin I 0.00 0.00 09/28/17 09/28/17 00:25 00:25 WBC Hgb Hct Plt Count INR 1.1 APTT 33.0 Sodium 138 Potassium 3.8 Chloride 108 Carbon Dioxide 24 BUN 17 Creatinine 0.79 Glucose 147 H Calcium 8.9 Magnesium 2.1 Total Bilirubin 0.2 AST 13 ALT 12 Alkaline Phosphatase 92 Troponin I
--- NOTE | 2017-09-28 16:09 | Internal Med Progress Note ---
Date of Encounter: 09/28/17 Time of Encounter: 12:30 - Assessment and plan (1) Unstable angina Current Visit: Yes Status: Suspected Assessment and plan: Pt with significant cardiac history. Stress test and troponin negative. Continues to have discomfort. Appreciate cardiology input. [facility] tomorrow. (2) A-fib Current Visit: Yes Status: Chronic Assessment and plan: Currently controlled. Continue meds for now. Hold Xarelto tomorrow. Qualifiers: Atrial fibrillation type: paroxysmal Qualified Code(s): I48.0 - Paroxysmal atrial fibrillation (3) COPD (chronic obstructive pulmonary disease) Current Visit: No Status: Chronic Assessment and plan: Continue home meds and aerosols if needed. Qualifiers: COPD type: unspecified COPD Qualified Code(s): J44.9 - Chronic obstructive pulmonary disease, unspecified (4) CAD (coronary artery disease) Current Visit: Yes Status: Chronic Assessment and plan: To have [facility] tomorrow. Prior hx of 8 stents. Qualifiers: Coronary Disease-Associated Artery/Lesion type: [place] artery [place] vs. transplanted heart: [place] heart Associated angina: with unstable angina Qualified Code(s): I25.110 - Atherosclerotic heart disease of [place] coronary artery with unstable angina pectoris (5) Essential hypertension Current Visit: No Status: Chronic Assessment and plan: Continue home meds. (6) HLD (hyperlipidemia) Current Visit: Yes Status: Chronic Assessment and plan: Continue home meds. Qualifiers: Hyperlipidemia type: mixed hyperlipidemia Qualified Code(s): E78.2 - Mixed hyperlipidemia (7) Tobacco abuse Current Visit: No Status: Chronic Assessment and plan: Cessation counselling. - Subjective Interval history: Mr. Renteria is currently in observation for chest pain. He remains moderate to high risk due to potential for worsening cardiac status. Mr Renteria is going to eat lunch. He continues to have brief episodes of chest pressure midsternal and R arm. No dyspnea or diaphoresis. No nausea, fever or chills. Stress test this AM was negative for ischemia but he is concerned that he is still having pain and in the past he has had negative stress tests and then cath with stents. Says he has 8 stents. No cath for about 5 years. Would like to see cardiology. - Constitutional Vitals: Temp Pulse Resp BP Pulse Ox 97.7 F 58 16 127/63 97 09/28/17 15:32 09/28/17 15:32 09/28/17 15:32 09/28/17 15:32 09/28/17 15:32 General appearance: Present: cooperative, A&O X 3, pleasant, underweight, answers questions appropriately - Head Head exam: Present: atraumatic, normocephalic - Eye Eye exam: Present: EOMI, conjuntiva pink - ENT ENT exam: Present: mucous membranes moist - Respiratory Respiratory exam: Present: CTAB. Absent: rales, rhonchi, wheezes - Cardiovascular Cardiovascular exam: Present: RRR. Absent: tachycardia - GI/Abdominal GI/Abdominal exam: Present: soft. Absent: mass, tenderness - Extremities Exam Extremities exam: Present: warm. Absent: tenderness - Neurological Exam Neurological exam: Present: alert, oriented X3, no focal deficits - Skin Skin exam: Present: dry, warm. Absent: rash Internal Medicine: Result - Labs CBC & Chem 7: 09/28/17 00:25 09/28/17 00:25 Labs: Short CBC 09/28/17 Range/Units 00:25 WBC 6.0 (4.3-11.1) K/mcL Hgb 11.1 L D (12.9-16.9) g/dL Hct 32.3 L (37.5-50.1) % Plt Count 226 (140-400) K/mcL Neutrophils # 3.8 (1.6-8.9) K/mcL BMP 09/28/17 00:25 Sodium 138 Potassium 3.8 Chloride 108 Carbon Dioxide 24 BUN 17 Creatinine 0.79 Glucose 147 H Calcium 8.9 Cardiac Enzymes 09/27/17 09/28/17 Range/Units 17:43 00:25 Troponin I 0.00 0.00 (0-0.03) ng/mL Liver Function 09/28/17 Range/Units 00:25 Total Bilirubin 0.2 (0.2-1.2) mg/dL AST 13 (5-34) Units/L ALT 12 (0-55) Units/L Alkaline Phosphatase 92 (38-126) Units/L Albumin 2.9 L (3.5-5.0) g/dL - ABG Interpretation ABG results: PT/INR, D-dimer PT 11.4 Seconds (9.4-12.1) 09/28/17 00:25 Consult Discharge Plan - Plan Referrals: NONE,PCP [Primary Care Provider] -
--- NOTE | 2017-09-28 18:00 | Electrocardiograph Report ---
[address] [address] Test Date: 2017-09-27 Pat Name: Ray Renteria Department: 103 Room: 3B Gender: M Systems Planner: AM : 1955 Requested By: Hari James Order Number: [id number] Reading MD: Maikol Raymond MD Measurements Intervals [place] Rate: 61 P: 48 OR: 182 QRS: -4 QRSD: 79 T: 31 QT: 431 QTc: 434 Interpretive Statements SINUS RHYTHM MODERATE VOLTAGE CRITERIA FOR LVH Electronically Signed On 09-28-2017 17:58:33 EST by Maikol Raymond MD
[2017-09-28] MEDS: Mirtazapine 15 MG TABLET PO SCH (20:41)
[2017-09-28] MEDS: Melatonin 3 MG TABLET PO SCH (20:41)
[2017-09-28] MEDS: Temazepam 15 MG CAPSULE PO SCH (20:41)
[2017-09-28] MEDS: diazePAM 10 MG TABLET PO PRN (22:01)
[2017-09-29 03:35] LABS: Basophils % 0.6 %; Eosinophils # 0.2 K/mcL (0.0-0.6); Eosinophils % 2.8 %; Hematocrit 33.1 % (37.5-50.1); Immature Granulocytes % 0.4 % (0-4); Lymphocytes # 1.3 K/mcL (0.6-4.6); Mean Corpuscular HGB Conc 33.2 g/dL (31.6-35.5); Mean Corpuscular Hemoglobin 30.5 pg (28.0-33.3); Mean Corpuscular Volume 91.7 fL (83.0-100.0); Mean Platelet Volume 8.8 fL (9.4-12.4); Monocytes # 0.4 K/mcL (0.0-1.3); Neutrophils # 3.5 K/mcL (1.6-8.9); Platelet Count 183 K/mcL (140-400); Red Blood Count 3.61 M/mcL (4.19-5.50); Red Cell Distribution Width 13.1 % (11.5-14.5); Segmented Neutrophils % 65.2 %
[2017-09-29 03:58] LABS: Alanine Aminotransferase 11 Units/L (0-55); Albumin 2.9 g/dL (3.5-5.0); Albumin/Globulin Ratio 0.9 (1.1-2.2); Alkaline Phosphatase 84 Units/L (38-126); Aspartate Amino Transferase 12 Units/L (5-34); BUN/Creatinine Ratio 19 (6-26); Bilirubin,Total 0.2 mg/dL (0.2-1.2); Blood Urea Nitrogen 17 mg/dL (8-26); Carbon Dioxide 26 mEq/L (19-29); Chloride 108 mEq/L (98-109); Globulin 3.2 g/dL (2.4-3.5); Glucose 107 mg/dL (70-99); Osmolality,Calculated 288 (280-300); Potassium 4.6 mEq/L (3.5-4.5); Sodium 138 mEq/L (136-145); Total Protein 6.1 g/dL (6.0-8.3); eGFR For African Americans > 60 (> 60); eGFR For Non-African Americans > 60 (> 60)
[2017-09-29] MEDS: Ipratropium/Albuterol Neb 3 ML IH SCH ×4 (04:04→21:33)
[2017-09-29] MEDS ORDERED: Verapamil 5 MG/2 ML VIAL ONE (07:13)
[2017-09-29] MEDS ORDERED: Heparin 1,000 UNITS/500 mL NS 500 ML ONE (07:14)
[2017-09-29] MEDS ORDERED: *HR* Heparin 10,000 UNIT/10 ML VIAL ONE (07:14)
[2017-09-29] MEDS ORDERED: Nitroglycerin 1,000 MCG/10 ML VIAL IV ONE (07:14)
[2017-09-29] MEDS ORDERED: 0.9 % Sodium Chloride 1,000 ML ONE ×2 (07:14→07:29)
[2017-09-29] MEDS ORDERED: *HR* Midazolam HCl 2 MG/2 ML VIAL ONE (07:46)
[2017-09-29] MEDS ORDERED: *HR* FentaNYL (PF) 100 MCG/2 ML VIAL ONE (07:46)
--- NOTE | 2017-09-29 07:47 | Pre-Sedation Evaluation ---
Pre-sedation evaluation - Pre-sedation checklist Date of procedure: 09/29/17 Procedure: heart cath Recent Vitals: Last Vital Signs Temp 97.7 F 09/29/17 07:19 Pulse 65 09/29/17 07:19 Resp 16 09/29/17 07:19 BP 149/73 09/29/17 07:19 Pulse Ox 93 09/29/17 07:19 H&P (including ROS) documented in medical record: Yes Previous reaction to sedatives/anesthetics: No Dietary Status: NPO after Midnight Dentition: dentures removed ASA Classification *see protocol: CLASS II-Mild systemic disease Plan of Care: Pt appropriate candidate for procedure/moderate/conscious sedation , Risks/benefits of procedure/sedation discussed w/ patient/family
[2017-09-29] MEDS ORDERED: methylPREDNISolone 125 MG/2 ML VIAL ONE (07:57)
[2017-09-29] MEDS ORDERED: *HR* Adenosine 6 MG/2 ML VIAL IVP ONE (08:38)
--- NOTE | 2017-09-29 09:27 | Invasive Diagnostic Lab Proc ---
Name: Ray Renteria Date of Study: 09/29/2017 Date: 1955 Ht: 68.0in Medical Record#: [id number] Age: 62 Wt: 149.91lb Gender: Male BSA: 1.81 Order #: [id number] BMI: 22.8 Physicians Procedure Physician: Maikol Raymond MD, [facility] Referring MD: Referring MD: Staff Name Position Time In SoraidaHoracio RN Monitor 07:36 AM Taylor Kwong RN Rn Patient Care 07:36 AM Milla Montilla RT Scrub 07:36 AM Dorothy Torres RN Rn Patient Care 07:46 AM Indications Indication Unstable Angina Procedures Performed Procedure L HRT ARTERY/VENTRICLE ANGIO IV Doppler BLD Flow 1st Vessel PRQ CARD MELISSA STENT W/ANGIO 1 VSL PRQ CARD MELISSA STENT W/ANGIO 1 VSL Pre-Procedure Checklist Pt not NPO for procedure and MD aware. Plan of Care Patient will tolerate the procedure without complications. Adequate level of comfort will be maintained. Hemodynamics will remain stable Patient will recover from procedure without complications. Respiratory function will be maintained. Cardiac rhythm will remain stable. Patient temperature will be maintained. Patient and/or family have verbalized understanding of the procedure. Patient Education Intravenous Access Time IV Size Location DC'd Fluid/Drip Rate Units RN 07:06 AM 20g 1 1/" Patent On Arrival Rt Antecubital Dorothy Torres RN Allergies acetaminophen CODEINE,FISH,TRAMADOL codeine ULTRAM, CODEINE, DARVON tramadol propoxyphene Vital Signs Time BP (mmHg) HR (bpm) O2 Sat. RR (bpm) LOC 07:06 AM 118 / 74 53 97 % 18 5 = Fully awake and oriented or at pre-proc level 07:42 AM / % 5 = Fully awake and oriented or at pre-proc level 07:42 AM / % 4 = Oriented but drowsy 07:58 AM / % 4 = Oriented but drowsy 08:13 AM / % 4 = Oriented but drowsy 08:28 AM / % 4 = Oriented but drowsy 08:44 AM / % 4 = Oriented but drowsy 08:27 AM 150 / 75 67 100 % 19 08:32 AM 132 / 68 64 99 % 14 08:37 AM 139 / 66 63 97 % 14 08:42 AM 130 / 74 67 98 % 18 08:48 AM 135 / 69 63 98 % 14 08:52 AM 147 / 68 63 98 % 15 08:57 AM 155 / 73 65 99 % 17 09:02 AM 154 / 77 60 100 % 10 07:49 AM 157 / 80 65 100 % 17 07:52 AM 162 / 73 58 100 % 16 07:57 AM 141 / 74 59 100 % 10 08:02 AM 127 / 68 60 99 % 13 08:07 AM 140 / 66 82 100 % 11 08:12 AM 148 / 74 65 100 % 14 08:17 AM 163 / 91 71 100 % 17 08:22 AM 159 / 87 72 100 % 18 08:59 AM / % 4 = Oriented but drowsy Procedural Medications Time Medication Dose Units Method Given By 07:42 AM Oxygen 2 L/min nasal cannula Taylor Kwong RN 07:52 AM Versed 2 mg Intravenous Taylor Kwong RN 07:53 AM Fentanyl 50 mcg Intravenous Taylor Kwong RN 07:58 AM Benadryl 50 mg Intravenous Taylor Kwong RN 07:58 AM Lidocaine 2% 0.5 ml Subcutaneous Maikol Raymond MD, FACC 07:59 AM Heparin 4000 units Nitroglycerin 200 mcg Verapamil 2.5 mg Intraarterial Maikol Raymond MD, FACC 07:59 AM Solu-medrol 125 mg Intravenous Taylor Kwong RN 08:14 AM Heparin 2000 units Intravenous Taylor Kwong RN 08:23 AM Fentanyl 25 mcg Intravenous Taylor Kwong RN 08:31 AM Nitroglycerin 200 mcg Intracoronary Maikol Raymond MD 08:42 AM Adenosine 80 mcg Intracoronary Maikol Raymond MD, FACC 08:42 AM Adenosine 120 mcg Intracoronary Maikol Raymond MD, FACC 08:44 AM Heparin 1000 units Intravenous Taylor Kwong RN 09:03 AM Plavix 600 mg Orally Taylor Kwong RN ASA Classification: CLASS II- Mild systemic disease (i.e. well-controlled diabetes, hypertension, asthma, cigarette smoking) Renée Score Preprocedure Postprocedure Activity 2- Moves 4 extremities sustained head lift Activity 2- Moves 4 extremities sustained head lift Circulation 2- SBP +/= 20 points of pre-anesthetic level Circulation 2- SBP +/= 20 points of pre-anesthetic level Consciousness 2- Awake and alert oriented x 3 Consciousness 2- Awake and alert oriented x 3 O2 Saturation 2- Able to maintain O2 satruation of 92% on room air O2 Saturation 2- Able to maintain O2 satruation of 92% on room air Respiratory 2- Able to deep breathe and cough well Respiratory 2- Able to deep breathe and cough well Total Score 10 Total Score 10 Contrast Agent: Isovue Diagnostic Contrast: 145 ml Total Contrast: 145 ml Fluoro Dose: 513 mGy Activated Clotting Time Time Seconds to Clot 08:14 AM 229 Procedure Log Time Note Enter By 07:36 AM Pt arrived to analyst microbiology lab 2 at 07:36 [facility] 07:36 AM Horacio Quigley RN Position: Monitor Time in: 07:36 [facility] 07:36 AM Taylor Kwong RN Position: Rn Patient Care Time in: 07:36 [facility] 07:36 AM Milla Montilla Position: Scrub Time in: 07:36 [facility] 07:36 AM Patient charges- Angio tray pack, Navilyst 3mm J, Pulse Oximetry and ACIST tubing and transducer [facility] 07:36 AM Case Delayed no, [facility] AM Physician arrived 07:42 [facility] 07:42 AM Meet and greet completed [facility] 07:42 AM Sign in performed according to hospital policy. [facility] 07:42 AM Procedure start 07:42 [facility] 07:42 AM CathStat 07:42 AM Time: 07:42 Oxygen on at 2 L/min per nasal cannula by Taylor Kwong RN [facility] 07:42 AM Time: 07:42 Patient comfortable and pain free: Yes [facility] :42 AM Time: 07:42LOC: 5 = Fully awake and oriented or at pre-proc level [facility] 07:46 AM Dorothy Torres RN Position: Rn Patient Care Time in: :46 [facility] 07:46 AM Hair removed from procedure site in procedure lab using clippers. Right wrist/right groin prepped with Chloraprep by Dorothy Torres RN, safety strap applied then patient was draped. Skin intact. [facility] 07:47 AM Vitals capture started with the following parameters, Patient=Adult, Interval=5 min, Initial Hqzviest=682 mmHg, Deflation Rate=5 mmHg, Cuff placed on Right Arm 07:47 AM Recorded ECG: HR=66 Condition=Condition 1 07:49 AM HR=65 bpm, LHPQ=908/80 mmhg, YjW5=609.0 %, Resp=17 B/min, Comment=nsr 07:52 AM HR=58 bpm, BTPC=749/73 mmhg, QbZ2=640.0 %, Resp=16 B/min, Comment=nsr 07:52 AM ASA Class CLASS II- Mild systemic disease (i.e. well-controlled diabetes, hypertension, asthma, cigarette smoking) [facility] 07:[facility] AM Time: 07:52 Versed 2 mg Intravenous Given by Taylor Kwong RN 07:53 AM Time: 07:53 Fentanyl 50 mcg Intravenous Given by Taylor Kwong RN 07:54 AM Pressure channel 1 zeroed. 07:57 AM Time: 07:42 Patient comfortable and pain free: Yes [facility] 07:57 AM HR=59 bpm, NFEG=858/74 mmhg, PwV6=961.0 %, Resp=10 B/min, Comment=nsr 07:58 AM Time: 07:42LOC: 4 = Oriented but drowsy [facility] 07:58 AM Time: 07:58 Benadryl 50 mg Intravenous Given by Taylor Kwong RN 07:58 AM Clinical Presentation: Unstable ang[facility] AM Time out performed according to hospital policy [facility] 07:58 AM Time: 07:58 0.5 ml Lidocaine 2% to right wrist Subcutaneous Given by [facility]ol [facility] MD, [facility] 07[facility] AM Access obtained by percutaneous puncture. 6Fr 11cm Terumo Glidesheath sheath placed in right Radial artery. [id number] [facility] 07[facility] AM Time: 07:59 Patient given 4,000 units Heparin, 200 mcg Nitroglycerin, and 2.5 mg Verapamil Intraarterial by [facility] Raymnod MD, [facility] 07:59 AM Time: 07:59 Solu-medrol 125 mg Intravenous Given by Taylor Kwong RN 08:00 AM 5Fr TIG catheter inserted over the wire [facility] mracell 08:00 AM 0.035 150cm VSI Amol-Torque wire [id number] [facility] 08[facility] AM Recorded Pressure: Ao, HR=66, Condition=Condition 1 (Aorta) Ao 124/62/87 08:02 AM RCA angiography performed in multiple views. jcallihan 08:02 AM Recorded Pressure: Ao, HR=60, Condition=Condition 1 (Aorta) Ao 112/61/83 08:02 AM HR=60 bpm, VUXT=326/68 mmhg, SpO2=99.0 %, Resp=13 B/min, Comment=nsr 08:03 AM Catheter removed jcallihan 08:03 AM 5Fr FL3.5 catheter inserted over the wire [id number] jcallihan 08:04 AM Pressure channel 1 zero failed. 08:04 AM Pressure channel 1 zeroed. 08:06 AM Coronary Dominance: right jcallihan 08:06 AM LCA angiography performed in multiple views. jcallihan 08:07 AM HR=82 bpm, PBHF=049/66 mmhg, LpK6=093.0 %, Resp=11 B/min, Comment=nsr 08:08 AM Recorded Pressure: LV, HR=69, Condition=Condition 1 (Left Ventricle) LV 166/4/24 08:08 AM Recorded Pressure: LV, Ao, HR=63, Condition=Condition 1 (Left Ventricle) LV 160/7/69, (Aorta) Ao 149/73/102 08:09 AM Catheter removed jcallan 08:09 AM 5Fr Pigtail catheter inserted over the wire [facility] jcallihan 08:09 AM Catheter selectively placed in left ventricle jcallihan 08:09 AM Bolus angiogram of left Ventricle complete: 10 ml/sec for a total of 20 mls jcallihan 08:09 AM Catheter removed jcallan 08:09 AM PCI Status Urgent jcallihan 08:10 AM PCI Indication: PCI for high risk Non-STEMI or unstable angina jcallihan 08:10 AM PCI lesion in Mid Circumflex. Pre Stenosis: 99 Pre STEFFI Flow: 2: Partial Flow/Perfusion (> 1 but < 3) jcallihan 08:11 AM PCI lesion in Proximal Circumflex. Pre Stenosis: 90 Pre STEFFI Flow: 2: Partial Flow/Perfusion (> 1 but < 3) jcallihan 08:11 AM 6Fr CLS 3.0 Runway guide catheter was used to cannulate the PCI vessel successfully. reused? No jcallihan 08:11 AM .014 [place] 190cm guide wire across target lesion- successful. reused? No jcallihan 08:11 AM Inflation device was opened. jcallihan 08:11 AM Recorded Pressure: Ao, HR=64, Condition=Condition 1 (Aorta) Ao 150/69/102 08:12 AM 2.0 mm x 12 mm Emerge Monorail balloon across target lesion- successful. reused? No jcallihan 08:12 AM Time: 07:57 Patient comfortable and pain free: Yes jcallihan 08:12 AM HR=65 bpm, URNO=577/74 mmhg, KdA2=618.0 %, Resp=14 B/min, Comment=nsr 08:13 AM Time: 07:58LOC: 4 = Oriented but drowsy jcallihan 08:14 AM At 08:14 the ACT was 229 seconds. jcallihan 08:14 AM Time: 08:14 Heparin 2000 units Intravenous Given by Taylor Kwong RN jcallihan 08:14 AM Recorded Pressure: Ao, HR=68, Condition=Condition 1 (Aorta) Ao 163/77/112 08:15 AM Lesion found in Mid RCA. Pre Stenosis: 80 Pre STEFFI Flow: jcallihan 08:15 AM Lesion found in Proximal LAD. Pre Stenosis: 30 Pre STEFFI Flow: jcallihan 08:16 AM Lesion found in LMCA. Pre Stenosis: 30 Pre STEFFI Flow: jcallihan 08:16 AM Left Main Coronary Artery with 30% stenosis jcallihan 08:16 AM Proximal Left Anterior Descending Coronary Artery with 30% stenosis. If graft is supplying this territory, 0 % stenosis. jcallihan 08:16 AM Circumflex, Obtuse Marginal, Left Posterior Descending, and Left Posterolateral Coronary Arteries with 99 % stenosis. If graft is supplying this area, 0 % stenosis jcallihan 08:16 AM Right Coronary, Right Posterior Descending Arteries with Right Posterolateral and Acute Marginal branches with 80 % stenosis. If graft is supplying this area, 0 % stenosis jcallihan 08:16 AM Balloon inflated @ 6 caitlyn for 10 seconds jcallihan 08:17 AM Balloon inflated @ 10 caitlyn for 14 seconds jcallihan 08:17 AM Balloon inflated @ 12 caitlyn for 18 seconds jcallihan 08:17 AM HR=71 bpm, YYYP=916/91 mmhg, YmL6=901.0 %, Resp=17 B/min, Comment=nsr 08:18 AM Balloon catheter removed intact. jcallihan 08:19 AM 2.75mm x 28mm Synergy drug-eluting stent across target lesion- successful Lot #[id number] jcallihan 08:21 AM Stent delivery system removed intact, not deployed jcallihan 08:22 AM 2.5 mm x 20mm NC Trek Rx balloon across target lesion- successful. reused? No jcallihan 08:22 AM Balloon inflated @ 12 caitlyn for 12 seconds jcallihan 08:22 AM HR=72 bpm, PDTE=131/87 mmhg, ZyM6=949.0 %, Resp=18 B/min, Comment=nsr 08:22 AM Balloon inflated @ 18 caitlyn for 18 seconds jcallihan 08:23 AM Time: 08:23 Fentanyl 25 mcg Intravenous Given by Taylor Kwong RN jcallihan 08:23 AM Balloon inflated @ 20 caitlyn for 20 seconds jcallihan 08:24 AM Balloon inflated @ 16 caitlyn for 15 seconds jcallihan 08:24 AM Balloon catheter removed intact. jcallihan 08:25 AM 2.75 x 28 Synergy stent re-inserted. jcallihan 08:25 AM Recorded Pressure: Ao, HR=68, Condition=Condition 1 (Aorta) Ao 157/70/103 08:27 AM Stent Deployed @ 12 caitlyn for 20 seconds jcallihan 08:27 AM Time: 08:12 Patient comfortable and pain free: Yes jcallihan 08:27 AM HR=67 bpm, ZUQZ=903/75 mmhg, PjU7=905.0 %, Resp=19 B/min, Comment=nsr 08:28 AM Time: 08:13LOC: 4 = Oriented but drowsy jcallihan 08:28 AM Stent delivery system removed intact. jcallihan 08:29 AM 2.75 mm x 20mm NC Trek Rx balloon across target lesion- successful. reused? No jcallihan 08:30 AM Balloon inflated @ 18 caitlyn for 29 seconds jcallihan 08:31 AM Balloon inflated @ 18 caitlyn for 20 seconds jcallihan 08:31 AM Balloon catheter removed intact. jcallihan 08:31 AM Time: 08:31 Nitroglycerin 200 mcg Intracoronary Given by Maikol Raymond MD jcallihan 08:32 AM HR=64 bpm, EKJV=418/68 mmhg, SpO2=99.0 %, Resp=14 B/min, Comment=nsr 08:34 AM Guide catheter removed intact. jcallihan 08:34 AM 6Fr IM Runway guide catheter was used to cannulate the PCI vessel successfully. reused? No jcallihan 08:37 AM Acist Navvus advanced to target lesion. jcallihan 08:37 AM HR=63 bpm, MNXS=930/66 mmhg, SpO2=97.0 %, Resp=14 B/min, Comment=nsr 08:42 AM Time: 08:42 Adenosine 80 mcg administered Intracoronary by Maikol Raymond MD, [facility] jcallihan 08:42 AM FFR Measurement: 0.80 [email or web address] 08:42 AM Time: 08:42 Adenosine 120 mcg administered Intracoronary by Maikol Raymond MD, [facility] jcallihan 08:42 AM HR=67 bpm, REYD=883/74 mmhg, SpO2=98.0 %, Resp=18 B/min, Comment=nsr 08:43 AM Time: 08:27 Patient comfortable and pain free: Yes [email or web address] 08:43 AM FFR Measurement: 0.77 jcallihan 08:44 AM Time: 08:28LOC: 4 = Oriented but drowsy jcallihan 08:44 AM 2.5 x 20 NC Trek re-inserted jcallihan 08:44 AM Time: 08:44 Heparin 1000 units Intravenous Given by Taylor Kwong RN jcallihan 08:45 AM Recorded Pressure: Ao, HR=64, Condition=Condition 1 (Aorta) Ao 148/75/105 08:45 AM Balloon inflated @ 16 caitlyn for 18 seconds jcallihan 08:46 AM Balloon catheter removed intact. jcallihan 08:47 AM 3.0mm x 24mm Synergy drug-eluting stent across target lesion- successful Lot #[id number] jcallihan 08:48 AM HR=63 bpm, SHXU=635/69 mmhg, SpO2=98.0 %, Resp=14 B/min, Comment=nsr 08:49 AM .014 [place] 180cm guide wire across target lesion- successful. reused? No (Second wire) jcallihan 08:51 AM Stent deployed @ 12 caitlyn for 18 seconds jcallihan 08:52 AM Guide wire removed intact ([place]) jcallihan 08:52 AM Stent delivery system removed intact. jcallihan 08:52 AM HR=63 bpm, LJVF=737/68 mmhg, SpO2=98.0 %, Resp=15 B/min, Comment=nsr 08:53 AM 3.0 mm x 15mm NC Emerge balloon across target lesion- successful. reused? No jcallihan 08:54 AM Balloon inflated @ 20 caitlyn for 18 seconds jcallihan 08:55 AM Balloon inflated @ 20 caitlyn for 14 seconds jcallihan 08:55 AM Balloon inflated @ 20 caitlyn for 18 seconds jcallihan 08:56 AM Balloon inflated @ 24 caitlyn for 20 seconds jcallihan 08:57 AM Balloon catheter removed intact. jcallihan 08:57 AM Guide wire removed intact. jcallihan 08:57 AM HR=65 bpm, XPBI=679/73 mmhg, SpO2=99.0 %, Resp=17 B/min, Comment=nsr 08:58 AM Time: 08:43 Patient comfortable and pain free: Yes jcallihan 08:58 AM Guide catheter removed intact. jcallihan 08:59 AM Procedure completed at 08:59 jcallihan 08:59 AM Sign out completed: Radiation Dose 513 mGy Fluoro Time: 12 Isovue 370 - 200ml contrast 145 ml given by Maikol Raymond MD, [facility]. Complications: NoneCardiac Rehab Consult needed: YesConfirmed administered medications: Yes jcallihan 08:59 AM Time: 08:44LOC: 4 = Oriented but drowsy jcallihan 09:00 AM Isovue 370 - 200ml,1 Bottle(s) used. jcallihan 09:00 AM Arterial sheath pulled, Vasc Band closure device used and was Successful S/N. jcallihan 09:00 AM 10 ml air in Vasc Band. jcallihan 09:00 AM Estimated Blood Loss: less than 50cc jcallihan 09:01 AM Post ECG NSR jcallihan 09:01 AM Post Blood Pressure 155/73 jcallihan 09:01 AM 09:01 Post Pulses Bilateral radial 2+ [email or web address] 09:02 AM Information taught Cardiac Cath, PCI, IVUS/Flowire, and Vasc Band jcallihan 09:02 AM Education needs Procedure, Plan of Care, and Responsibilities of Patient in Care jcallihan 09:02 AM Learning barriers :None jcallihan 09:02 AM Education Methods Verbal jcallihan 09:02 AM Education evaluation Able to repeat information [facility] AM Site status No bleeding/hematoma - Rt Groin as reported by Milla Montilla RT at 09:02 jcallihan 09:02 AM HR=60 bpm, AAMJ=128/77 mmhg, ByW5=241.0 %, Resp=10 B/min, Comment=nsr 09:03 AM Plavix, Effient or Brilinta given Yes jcallihan 09:03 AM Delay to floor No jcallihan 09:03 AM Time: 09:03 Plavix 600 mg Orally Given by Taylor [facility] 09[facility] AM Daughter to be called, no one physically here to place in consult room. [email or web address] 09:04 AM Complications: None jcallihan 09:04 AM Fluoro Time: 12 jcallihan 09:04 AM Isovue 370 - 200ml contrast 145 ml given by Maikol Raymond MD, FACC. allan 09:04 AM Radiation Dose 513 mGy jcallih 09:10 AM Report given to 3B RN Pt taken to 3B Room #33. 09:10 jcallihan 09:13 AM Time: 08:58 Patient comfortable and pain free: Yes jcallihan 09:14 AM Time: 08:59LOC: 4 = Oriented but drowsy jcallihan 09:17 AM Patient out of room: 09:17 jcallihan Complications Complication None None Hemodynamics Pressures Site Systolic/A Wave Diastolic/V Wave Mean AO 124 62 87 AO 112 61 83 LV 166 4 24 LV 160 7 69 AO 149 73 102 AO 150 69 102 AO 163 77 112 AO 157 70 103 AO 148 75 105 Post Procedure Information Blood Pressure: 155/73 mmHg Rhythm: NSR Post procedural instructions were given Closure Device Time Device Success/Fail 09/29/2017 9:06:00 AM Mechanical Compression Successful Site Checks Time Location Status Staff Sheath In? Note 09:02 AM Rt Groin No bleeding/hematoma Milla Montilla RT Pulses Time Site Pre-Procedure Post-Procedure Note 09/29/2017 7:07:00 AM Bilateral radial 2+ 09/29/2017 7:07:00 AM Bilateral DP 1+ 9:01:00 AM Bilateral radial 2+ Updated by Horacio Quigley RN on 09/29/2017 9:18:49 AM electronically signed on 09/29/2017 9:21:04 AM with status of Final
[2017-09-29] MEDS: FLUoxetine 20 MG CAPSULE PO SCH (10:00)
[2017-09-29] MEDS: Lisinopril 20 MG TABLET PO SCH ×2 (10:00→20:46)
[2017-09-29] MEDS: Aspirin Enteric Coated 81 MG Tablet PO SCH (10:00)
[2017-09-29] MEDS: Methylphenidate HCl 10 MG TABLET PO SCH ×2 (10:01→20:48)
[2017-09-29] MEDS: Nicotine 14 MG PATCH.TD24 TD SCH (10:01)
[2017-09-29] MEDS: amLODIPine 5 MG TABLET PO SCH (10:01)
[2017-09-29] MEDS: *HR* HYDROcodone/Acet 10/325 mg TABLET PO PRN ×2 (10:03→20:46)
[2017-09-29] MEDS: *HR* HYDROcodone/Acet 5/325 mg TABLET PO PRN (15:06)
--- NOTE | 2017-09-29 18:02 | Internal Med Progress Note ---
Date of Encounter: 09/29/17 Time of Encounter: 12:30 - Assessment and plan (1) Unstable angina Current Visit: Yes Status: Suspected Assessment and plan: Pt had LHC today. 2 stents placed. Site looks OK at this time. Continue cardiac medications as ordered. (2) A-fib Current Visit: Yes Status: Chronic Assessment and plan: Will need restart Xarelto. Currently not tachycardic. Qualifiers: Atrial fibrillation type: paroxysmal Qualified Code(s): I48.0 - Paroxysmal atrial fibrillation (3) COPD (chronic obstructive pulmonary disease) Current Visit: No Status: Chronic Assessment and plan: Continue home meds and aerosols if needed. Qualifiers: COPD type: unspecified COPD Qualified Code(s): J44.9 - Chronic obstructive pulmonary disease, unspecified (4) CAD (coronary artery disease) Current Visit: Yes Status: Chronic Assessment and plan: Had LHC today and 2 stents placed. Qualifiers: Coronary Disease-Associated Artery/Lesion type: [place] artery [place] vs. transplanted heart: [place] heart Associated angina: with unstable angina Qualified Code(s): I25.110 - Atherosclerotic heart disease of [place] coronary artery with unstable angina pectoris (5) Essential hypertension Current Visit: No Status: Chronic Assessment and plan: Continue home meds. (6) HLD (hyperlipidemia) Current Visit: Yes Status: Chronic Assessment and plan: Continue home meds. Qualifiers: Hyperlipidemia type: mixed hyperlipidemia Qualified Code(s): E78.2 - Mixed hyperlipidemia (7) Tobacco abuse Current Visit: No Status: Chronic Assessment and plan: Cessation counselling. - Subjective Interval history: Mr. Renteria is currently in observation for chest pain. He remains moderate to high risk due to potential for worsening cardiac status. Mr Renteria had cardiac cath today. He had 2 stents placed. Feels no chest pain now. Going to eat lunch. Says he is homeless and will need to stay till Sunday. No fever or chills. No GI issues. - Constitutional Vitals: Temp Pulse Resp BP Pulse Ox 98.2 F 65 16 131/73 95 09/29/17 14:38 09/29/17 14:38 09/29/17 15:05 09/29/17 14:38 09/29/17 15:05 General appearance: Present: cooperative, A&O X 3, pleasant, underweight, answers questions appropriately - Head Head exam: Present: atraumatic, normocephalic - Eye Eye exam: Present: conjuntiva pink - ENT ENT exam: Present: mucous membranes dry - Neck Neck exam general surgery: Absent: lymphadenopathy, thyromegaly - Respiratory Respiratory exam: Present: CTAB. Absent: rales, rhonchi, wheezes - Cardiovascular Cardiovascular exam: Present: RRR. Absent: tachycardia - GI/Abdominal GI/Abdominal exam: Present: tenderness. Absent: soft - Extremities Exam Extremities exam: Present: warm. Absent: tenderness Additional comments: Wrist without bleeding. - Neurological Exam Neurological exam: Present: alert, oriented X3, no focal deficits - Skin Skin exam: Present: dry, warm. Absent: rash Internal Medicine: Result - Labs CBC & Chem 7: 09/29/17 03:04 09/29/17 03:04 Labs: Short CBC 09/29/17 Range/Units 03:04 WBC 5.3 (4.3-11.1) K/mcL Hgb 11.0 L (12.9-16.9) g/dL Hct 33.1 L (37.5-50.1) % Plt Count 183 (140-400) K/mcL Neutrophils # 3.5 (1.6-8.9) K/mcL BMP 09/29/17 03:04 Sodium 138 Potassium 4.6 H Chloride 108 Carbon Dioxide 26 BUN 17 Creatinine 0.90 Glucose 107 H Calcium 9.0 Liver Function 09/29/17 Range/Units 03:04 Total Bilirubin 0.2 (0.2-1.2) mg/dL AST 12 (5-34) Units/L ALT 11 (0-55) Units/L Alkaline Phosphatase 84 (38-126) Units/L Albumin 2.9 L (3.5-5.0) g/dL - ABG Interpretation ABG results: PT/INR, D-dimer PT 11.4 Seconds (9.4-12.1) 09/28/17 00:25 Consult Discharge Plan - Plan Referrals: NONE,PCP [Primary Care Provider] -
[2017-09-29] MEDS: Temazepam 15 MG CAPSULE PO SCH (20:45)
[2017-09-29] MEDS: Mirtazapine 15 MG TABLET PO SCH (20:45)
[2017-09-29] MEDS: Melatonin 3 MG TABLET PO SCH (20:45)
[2017-09-30] MEDS: Ipratropium/Albuterol Neb 3 ML IH SCH ×2 (03:45→09:53)
[2017-09-30 05:09] LABS: Basophils % 0.1 %; Eosinophils % 0.1 %; Hematocrit 35.2 % (37.5-50.1); Hemoglobin 11.7 g/dL (12.9-16.9); Immature Granulocytes % 0.7 % (0-4); Lymphocytes # 1.1 K/mcL (0.6-4.6); Lymphocytes % 9.2 %; Mean Corpuscular HGB Conc 33.2 g/dL (31.6-35.5); Mean Corpuscular Hemoglobin 30.6 pg (28.0-33.3); Mean Corpuscular Volume 92.1 fL (83.0-100.0); Mean Platelet Volume 9.4 fL (9.4-12.4); Monocytes # 0.6 K/mcL (0.0-1.3); Monocytes % 5.1 %; Neutrophils # 10.2 K/mcL (1.6-8.9); Platelet Count 238 K/mcL (140-400); Red Blood Count 3.82 M/mcL (4.19-5.50); Red Cell Distribution Width 13.2 % (11.5-14.5); Segmented Neutrophils % 84.8 %
[2017-09-30 05:30] LABS: Aspartate Amino Transferase 11 Units/L (5-34); Calcium 9.9 mg/dL (8.6-10.8); Chloride 105 mEq/L (98-109); Sodium 137 mEq/L (136-145)
[2017-09-30 06:01] LABS: Alanine Aminotransferase 12 Units/L (0-55); Albumin 3.3 g/dL (3.5-5.0); Alkaline Phosphatase 93 Units/L (38-126); BUN/Creatinine Ratio 24 (6-26); Bilirubin,Total 0.2 mg/dL (0.2-1.2); Blood Urea Nitrogen 21 mg/dL (8-26); Carbon Dioxide 23 mEq/L (19-29); Globulin 3.2 g/dL (2.4-3.5); Glucose 153 mg/dL (70-99); Osmolality,Calculated 290 (280-300); Total Protein 6.5 g/dL (6.0-8.3); eGFR For African Americans > 60 (> 60); eGFR For Non-African Americans > 60 (> 60)
[2017-09-30] MEDS ORDERED: *HR* Ticagrelor 90 MG TABLET PO ONE (08:00)
[2017-09-30] MEDS: Methylphenidate HCl 10 MG TABLET PO SCH ×2 (08:06→17:09)
[2017-09-30] MEDS: Nicotine 14 MG PATCH.TD24 TD SCH (08:06)
[2017-09-30] MEDS: amLODIPine 5 MG TABLET PO SCH (08:06)
[2017-09-30] MEDS: Aspirin Enteric Coated 81 MG Tablet PO SCH (08:07)
[2017-09-30] MEDS: FLUoxetine 20 MG CAPSULE PO SCH (08:07)
[2017-09-30] MEDS: *HR* HYDROcodone/Acet 5/325 mg TABLET PO PRN ×2 (08:07→21:50)
[2017-09-30] MEDS: Lisinopril 20 MG TABLET PO SCH ×2 (08:07→21:03)
[2017-09-30] MEDS ORDERED: Ipratropium/Albuterol Neb 3 ML IH PRN (10:52)
[2017-09-30] MEDS: *HR* HYDROcodone/Acet 10/325 mg TABLET PO PRN (13:17)
--- NOTE | 2017-09-30 13:50 | Cardiology Progress Note ---
Date of Encounter: 09/30/17 Time of Encounter: 13:48 Assessment and Plan (1) CAD (coronary artery disease) Current Visit: Yes Status: Chronic Hx of PCI. [facility] yesterday for chest pain concerning for unstable angina revealed severe 2 vessel CAD, EF 65%, MELISSA to prox-mid circ and mid RCA (functionally significant FFR). DAPT (ASA and Brilinta) uninterrupted. Pt verbalizes understanding. Coupon card given. Pt will be on triple therapy--ASA, Brilinta, Xarelto. Anticipate stopping ASA after 1 month. Right radial access site healing well. No bleeding, hematoma or ecchymosis noted. Restrictions discussed. Cardiology signing off. Reconsult PRN. Will coordinate outpt follow-up. Qualifiers: Coronary Disease-Associated Artery/Lesion type: [place] artery [place] vs. transplanted heart: [place] heart Associated angina: with unstable angina Qualified Code(s): I25.110 - Atherosclerotic heart disease of [place] coronary artery with unstable angina pectoris (2) A-fib Current Visit: Yes Status: Chronic Known PAF. ON beta blcoker. On xarelto. No atrial fibrillation noted per telemetry. Resume Xarelto. Qualifiers: Atrial fibrillation type: paroxysmal Qualified Code(s): I48.0 - Paroxysmal atrial fibrillation Discussion w patient/family: The assessment and plan as outlined above was discussed with the patient and/or family members who expressed understanding and agreement. All questions were answered. Thank you for involving us in the care of your patient. Please call with any questions. I will discuss all the above with Dr. Keyes and make changes as necessary. Subjective Principal diagnosis: Chest pain, CAD, A-Fib Interval history: S/P C yesterday, severe 2 vessel CAD, EF 65%, MELISSA to prox-mid circ and mid RCA (functionally significant FFR). Pt denies chest pain or dyspnea overnight. Reports intermittent palpitations. Objective Vital Signs, Last 4 Hours Temp Pulse Resp BP Pulse Ox 09/30/17 10:50 98.6 F 72 16 125/66 94 09/30/17 09:53 16 98 Vital Signs Temp Pulse Resp BP Pulse Ox 09/30/17 10:50 98.6 F 72 16 125/66 94 09/30/17 09:53 16 98 09/30/17 06:46 98.0 F 71 17 110/56 98 09/30/17 03:46 14 98 09/30/17 02:53 98.0 F 61 12 94/55 95 09/29/17 23:05 98.0 F 70 16 95/57 96 09/29/17 21:35 15 99 09/29/17 18:56 97.8 F 71 20 105/61 96 09/29/17 15:05 16 95 09/29/17 14:38 98.2 F 65 17 131/73 94 Intake and Output 09/29/17 09/30/17 09/30/17 23:59 07:59 15:59 Intake Total 480 / 480 Balance 480 / 480 Intake: Oral 480 / 480 Other: Meal Dinner Lunch Percent of Meal Consumed 100% 90% Weight 66.678 kg Blood Glucose* 142 156 160 Patient Weight 09/30/17 23:59 Weight 66.678 kg General: Conversant, No Apparent Distress HEENT: Atraumatic, Normocephaly, Mucus Membranes Moist Neck: No JVD, Normal carotid pulses Cardiac: Reg Rate and Rhythm, Normal S1 and S2, No Murmur Lungs: Normal Breath Sounds, No Wheeze, Rales, Rhonchi Neuro: Alert and responsive, No focal deficits noted Abdomen: Soft, Non-Tender Skin: Other (right radial access site healing well. No bleeding, hematoma or ecchymosis noted.) Musculoskeletal: No Chest Wall Tenderness Extremities: No Clubbing, No Cyanosis, No Edema, Normal Pulses Results 09/30/17 04:16 09/30/17 04:16 Lab Results 09/30/17 09/30/17 04:16 04:16 WBC 12.0 H D Hgb 11.7 L Hct 35.2 L Plt Count 238 Sodium 137 Potassium 4.0 Chloride 105 Carbon Dioxide 23 BUN 21 Creatinine 0.87 Glucose 153 H Calcium 9.9 Total Bilirubin 0.2 AST 11 ALT 12 Alkaline Phosphatase 93 Short CBC 09/30/17 Range/Units 04:16 WBC 12.0 H D (4.3-11.1) K/mcL Hgb 11.7 L (12.9-16.9) g/dL Hct 35.2 L (37.5-50.1) % Plt Count 238 (140-400) K/mcL Neutrophils # 10.2 H (1.6-8.9) K/mcL BMP 09/30/17 Range/Units 04:16 Sodium 137 (136-145) mEq/L Potassium 4.0 (3.5-4.5) mEq/L Chloride 105 (98-109) mEq/L Carbon Dioxide 23 (19-29) mEq/L BUN 21 (8-26) mg/dL Creatinine 0.87 (0.72-1.25) mg/dL Glucose 153 H (70-99) mg/dL Calcium 9.9 (8.6-10.8) mg/dL Liver Function 09/30/17 Range/Units 04:16 Total Bilirubin 0.2 (0.2-1.2) mg/dL AST 11 (5-34) Units/L ALT 12 (0-55) Units/L Alkaline Phosphatase 93 (38-126) Units/L Albumin 3.3 L (3.5-5.0) g/dL Active Medications Acetaminophen (Tylenol) 650 mg PO Q6HR PRN PRN Reason: Pain Stop: 03/30/18 11:40 Last Admin: 09/28/17 12:41 Dose: 650 mg Hydrocodone Bitart/Acetaminophen ([place] 10-325 Mg) 1 each PO Q6H PRN PRN Reason: Severe Pain Stop: 03/29/18 20:47 Last Admin: 09/30/17 13:17 Dose: 1 each Hydrocodone Bitart/Acetaminophen ([place] 5-325 Mg) 1 tab PO Q4HR PRN PRN Reason: Moderate Pain Stop: 03/31/18 09:11 Last Admin: 09/30/17 08:07 Dose: 1 tab Albuterol Sulfate (Albuterol Inhaler) 2 puff IH QIDR [facility] Stop: 04/01/18 11:01 Last Admin: 09/30/17 11:18 Dose: Not Given Albuterol/Ipratropium (Duoneb) 3 ml IH [id number] PRN PRN Reason: Dyspnea Stop: 03/29/18 22:01 Amlodipine Besylate (Norvasc) 10 mg PO DAILY [facility] Stop: 03/30/18 09:01 Last Admin: 09/30/17 08:06 Dose: 10 mg Aspirin (Aspirin Ec) 81 mg PO DAILY [facility] Stop: 03/30/18 09:01 Last Admin: 09/30/17 08:07 Dose: 81 mg Atenolol (Tenormin) 50 mg PO BID [facility] Stop: 03/29/18 21:01 Last Admin: 09/30/17 08:07 Dose: 50 mg Atorvastatin Calcium (Lipitor) 80 mg PO HS [facility] Stop: 03/29/18 21:01 Last Admin: 09/29/17 20:47 Dose: 80 mg Diazepam (Valium) 10 mg PO TID PRN PRN Reason: Anxiety Stop: 03/29/18 17:37 Last Admin: 09/28/17 22:01 Dose: 10 mg Fluoxetine HCl (Prozac) 60 mg PO DAILY [facility] PRN Reason: Protocol Stop: 03/30/18 09:01 Last Admin: 09/30/17 08:07 Dose: 60 mg Lisinopril (Zestril) 20 mg PO BID [facility] PRN Reason: Protocol Stop: 03/29/18 21:01 Last Admin: 09/30/17 08:07 Dose: 20 mg Melatonin (Melatonin) 6 mg PO HS [facility] Stop: 03/29/18 21:01 Last Admin: 09/29/17 20:45 Dose: 6 mg Methylphenidate HCl (Ritalin) 20 mg PO 0900,1700 [facility] Stop: 04/01/18 17:01 Mirtazapine (Remeron) 15 mg PO HS [facility] Stop: 03/29/18 21:01 Last Admin: 09/29/17 20:45 Dose: 15 mg Naloxone HCl (Narcan) 0.4 mg IVP Q2MIN PRN PRN Reason: Opioid Reversal Stop: 03/29/18 17:30 Nicotine (Nicoderm) 14 mg TD DAILY [facility] PRN Reason: Protocol Stop: 03/30/18 09:01 Last Admin: 09/30/17 08:06 Dose: 14 mg Nitroglycerin (Nitroglycerin) 0.4 mg SL Q5M PRN PRN Reason: Chest Pain Stop: 03/29/18 17:37 Ondansetron HCl (Zofran) 4 mg IVP Q8HR PRN PRN Reason: Nausea And Vomiting Stop: 03/29/18 17:30 Oxycodone/Acetaminophen (Percocet 5/325) 1 each PO Q4HR PRN PRN Reason: Severe Pain Stop: 03/31/18 09:11 Pharmacy Profile Note (Patient Taking Own Medication) 0 each PO DAILY [facility] Stop: 03/30/18 09:01 Last Admin: 09/30/17 09:09 Dose: Not Given Temazepam (Restoril) 30 mg PO HS [facility] Stop: 03/29/18 21:01 Last Admin: 09/29/17 20:45 Dose: 30 mg Ticagrelor (Brilinta) 90 mg PO BID [facility] Stop: 04/01/18 21:01 - Imaging and Cardiology Echo: report reviewed Cardiac cath: report reviewed - EKG Interpretation EKG results cardiology: other (12 hr tele AVG HR 69. SR.) Consult Discharge Plan - Plan Additional Instructions: RISK FACTORS: STOP SMOKING: If you smoke, STOP. Smoking or tobacco use significantly increases your risk of heart disease because nicotine causes the arteries to narrow or constrict. It also causes fats to stick to the artery. Your chances of having a heart attack are greatly increased if you continue to smoke. For more information, call the education line for smoking cessation 5-744-HPFUZYC EAT A LOW FAT/CHOLESTEROL/SODIUM DIET: This diet may help reduce your chances of having a heart attack. LIFTING: With affected extremity: Avoid bending, pushing off and lifting more than 2 pounds for 24 hours The following 48 hours, avoid lifting anything more than 5 pounds Avoid strenuous activity or repetitive motions ACTIVITY: You may walk or climb stairs as tolerated You can resume sexual activity as tolerated In general, you are encouraged to engage in a minimum of 30 minutes or more of moderate intensity physical activity, such as brisk walking, daily or at least 3 -4 times weekly BATHING Do not submerge the site into water (bath tub, hot tub, swimming pool, dishes) for 1 week. This can be a source for infection into the blood stream. You may shower after 24 hours SITE CARE: After 24 hours, you may remove the dressing and leave the site open to air. Keep the site clean and dry. Clean gently and pat dry. You can expect bruising and tenderness that gradually resolve within a week or two. Return to work as instructed per your physician Resume driving as instructed per physician Keep all scheduled follow up appointments Resume medications as instructed IMPORTANT: If prescribed a Platelet Aggregation Inhibitor such as, Plavix, Brilinta or Effient: Duration of therapy is minimum one year These medications are often used in combination with Aspirin in prevention of future heart attacks Never discontinue unless consult with your Registered Nurse Obstetrics STROKE (CVA) Risk factors for a stroke are: Age, cigarette smoking, diabetes, excessive alcohol consumption, family history, high blood pressure, overweight, physical inactivity, prior stroke, heart attack, diagnosis of carotid artery stenosis or other artery disease. Warning signs: Sudden numbness or weakness of the face, arm or leg; especially on one side of the body, sudden confusion, trouble speaking or understanding, sudden trouble seeing in one or both eyes, sudden trouble walking, dizziness, loss of balance or coordination, sudden severe headache with no cause. Call 911 or go to the Emergency Room. CONGESTIVE HEART FAILURE: If you have been diagnosed with Congestive Heart Failure (CHF) and your symptoms return, make an appointment with your physician Weigh yourself daily. Notify your physician if you have a weight gain of two or more pounds in one day or five or more pounds in one week. If you experience any difficulty breathing, please call 911 BLEEDING: Although the risk of bleeding is minimal, it can happen. If you have any bleeding from the site, apply firm pressure above the puncture site for 10-15 minutes. If the bleeding does not stop, continue manual pressure and call 911 Contact [facility] ( ) if: You develop a fever greater than 101 degrees Fahrenheit Your site becomes reddened or has any drainage You have an increase in pain or burning at the site or if a large knot forms at the site. If you experience chest pain, shortness of breath, dizziness, or extreme tiredness, stop the activity and rest. Please notify [facility] office if you experience any of these symptoms and they are not relieved by rest please call 911! Referrals: NONE,PCP [Primary Care Provider] -
--- NOTE | 2017-09-30 15:00 | Internal Med Progress Note ---
Date of Encounter: 09/30/17 Time of Encounter: 11:20 - Assessment and plan (1) Unstable angina Current Visit: Yes Status: Suspected Assessment and plan: Pt is s/p [facility] yesterday with 2 stents placed. No further chest pain at this time. Tolerating medications. (2) A-fib Current Visit: Yes Status: Chronic Assessment and plan: Xarelto to be restarted. Qualifiers: Atrial fibrillation type: paroxysmal Qualified Code(s): I48.0 - Paroxysmal atrial fibrillation (3) COPD (chronic obstructive pulmonary disease) Current Visit: No Status: Chronic Assessment and plan: Aerosols adjusted. Qualifiers: COPD type: unspecified COPD Qualified Code(s): J44.9 - Chronic obstructive pulmonary disease, unspecified (4) CAD (coronary artery disease) Current Visit: Yes Status: Chronic Assessment and plan: Currently on triple therapy. To follow with cardiology as outpatient. Qualifiers: Coronary Disease-Associated Artery/Lesion type: [place] artery [place] vs. transplanted heart: [place] heart Associated angina: with unstable angina Qualified Code(s): I25.110 - Atherosclerotic heart disease of [place] coronary artery with unstable angina pectoris (5) Essential hypertension Current Visit: No Status: Chronic Assessment and plan: Continue home meds. (6) HLD (hyperlipidemia) Current Visit: Yes Status: Chronic Assessment and plan: Continue home meds. Qualifiers: Hyperlipidemia type: mixed hyperlipidemia Qualified Code(s): E78.2 - Mixed hyperlipidemia (7) Tobacco abuse Current Visit: No Status: Chronic Assessment and plan: Cessation counselling. - Subjective Interval history: Mr. Renteria is currently in observation for chest pain. He remains moderate to high risk due to potential for worsening cardiac status. Mr Renteria is doing OK today. No CP or SOB. Eating OK. No pain. No fever or chills. Mouth is dry because of frequent aerosols. - Constitutional Vitals: Temp Pulse Resp BP Pulse Ox 98.6 F 72 16 125/66 94 09/30/17 10:50 09/30/17 10:50 09/30/17 10:50 09/30/17 10:50 09/30/17 10:50 General appearance: Present: cooperative, A&O X 3, pleasant, underweight, answers questions appropriately - Head Head exam: Present: normocephalic - Eye Eye exam: Present: EOMI, conjuntiva pink - ENT ENT exam: Present: mucous membranes dry - Neck Neck exam general surgery: Absent: lymphadenopathy, thyromegaly - Respiratory Respiratory exam: Present: decreased breath sounds, CTAB. Absent: rales, rhonchi, wheezes - Cardiovascular Cardiovascular exam: Present: RRR. Absent: tachycardia - GI/Abdominal GI/Abdominal exam: Present: soft. Absent: mass, tenderness - Extremities Exam Extremities exam: Present: warm. Absent: tenderness - Neurological Exam Neurological exam: Present: alert, oriented X3, no focal deficits - Skin Skin exam: Present: dry, warm. Absent: rash Internal Medicine: Result - Labs CBC & Chem 7: 09/30/17 04:16 09/30/17 04:16 Labs: Short CBC 09/30/17 Range/Units 04:16 WBC 12.0 H D (4.3-11.1) K/mcL Hgb 11.7 L (12.9-16.9) g/dL Hct 35.2 L (37.5-50.1) % Plt Count 238 (140-400) K/mcL Neutrophils # 10.2 H (1.6-8.9) K/mcL BMP 09/30/17 04:16 Sodium 137 Potassium 4.0 Chloride 105 Carbon Dioxide 23 BUN 21 Creatinine 0.87 Glucose 153 H Calcium 9.9 Liver Function 09/30/17 Range/Units 04:16 Total Bilirubin 0.2 (0.2-1.2) mg/dL AST 11 (5-34) Units/L ALT 12 (0-55) Units/L Alkaline Phosphatase 93 (38-126) Units/L Albumin 3.3 L (3.5-5.0) g/dL - ABG Interpretation ABG results: PT/INR, D-dimer PT 11.4 Seconds (9.4-12.1) 09/28/17 00:25 Consult Discharge Plan - Plan Additional Instructions: RISK FACTORS: STOP SMOKING: If you smoke, STOP. Smoking or tobacco use significantly increases your risk of heart disease because nicotine causes the arteries to narrow or constrict. It also causes fats to stick to the artery. Your chances of having a heart attack are greatly increased if you continue to smoke. For more information, call the education line for smoking cessation 4-037-RZYBDEV EAT A LOW FAT/CHOLESTEROL/SODIUM DIET: This diet may help reduce your chances of having a heart attack. LIFTING: With affected extremity: Avoid bending, pushing off and lifting more than 2 pounds for 24 hours The following 48 hours, avoid lifting anything more than 5 pounds Avoid strenuous activity or repetitive motions ACTIVITY: You may walk or climb stairs as tolerated You can resume sexual activity as tolerated In general, you are encouraged to engage in a minimum of 30 minutes or more of moderate intensity physical activity, such as brisk walking, daily or at least 3 -4 times weekly BATHING Do not submerge the site into water (bath tub, hot tub, swimming pool, dishes) for 1 week. This can be a source for infection into the blood stream. You may shower after 24 hours SITE CARE: After 24 hours, you may remove the dressing and leave the site open to air. Keep the site clean and dry. Clean gently and pat dry. You can expect bruising and tenderness that gradually resolve within a week or two. Return to work as instructed per your physician Resume driving as instructed per physician Keep all scheduled follow up appointments Resume medications as instructed IMPORTANT: If prescribed a Platelet Aggregation Inhibitor such as, Plavix, Brilinta or Effient: Duration of therapy is minimum one year These medications are often used in combination with Aspirin in prevention of future heart attacks Never discontinue unless consult with your Slot Shift Supervisor STROKE (CVA) Risk factors for a stroke are: Age, cigarette smoking, diabetes, excessive alcohol consumption, family history, high blood pressure, overweight, physical inactivity, prior stroke, heart attack, diagnosis of carotid artery stenosis or other artery disease. Warning signs: Sudden numbness or weakness of the face, arm or leg; especially on one side of the body, sudden confusion, trouble speaking or understanding, sudden trouble seeing in one or both eyes, sudden trouble walking, dizziness, loss of balance or coordination, sudden severe headache with no cause. Call 911 or go to the Emergency Room. CONGESTIVE HEART FAILURE: If you have been diagnosed with Congestive Heart Failure (CHF) and your symptoms return, make an appointment with your physician Weigh yourself daily. Notify your physician if you have a weight gain of two or more pounds in one day or five or more pounds in one week. If you experience any difficulty breathing, please call 911 BLEEDING: Although the risk of bleeding is minimal, it can happen. If you have any bleeding from the site, apply firm pressure above the puncture site for 10-15 minutes. If the bleeding does not stop, continue manual pressure and call 911 Contact [facility] ( ) if: You develop a fever greater than 101 degrees Fahrenheit Your site becomes reddened or has any drainage You have an increase in pain or burning at the site or if a large knot forms at the site. If you experience chest pain, shortness of breath, dizziness, or extreme tiredness, stop the activity and rest. Please notify [facility] office if you experience any of these symptoms and they are not relieved by rest please call 911! Referrals: NONE,PCP [Primary Care Provider] -
[2017-09-30] MEDS: *HR* OxyCODONE/APAP 5/325 TABLET PO PRN (17:09)
[2017-09-30] MEDS: *HR* Rivaroxaban 10 MG TABLET PO SCH (17:09)
--- NOTE | 2017-09-30 20:04 | Electrocardiograph Report ---
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
[2017-09-30] MEDS: Mirtazapine 15 MG TABLET PO SCH (21:03)
[2017-09-30] MEDS: Melatonin 3 MG TABLET PO SCH (21:03)
[2017-09-30] MEDS: *HR* Ticagrelor 90 MG TABLET PO SCH (21:03)
[2017-09-30] MEDS: Temazepam 15 MG CAPSULE PO SCH (21:03)
[2017-09-30] MEDS: diazePAM 10 MG TABLET PO PRN (21:04)
[2017-10-01 04:28] LABS: Basophils % 0.5 %; Eosinophils # 0.3 K/mcL (0.0-0.6); Eosinophils % 3.1 %; Hematocrit 33.2 % (37.5-50.1); Hemoglobin 10.9 g/dL (12.9-16.9); Immature Granulocytes % 0.7 % (0-4); Lymphocytes # 2.3 K/mcL (0.6-4.6); Lymphocytes % 27.9 %; Mean Corpuscular HGB Conc 32.8 g/dL (31.6-35.5); Mean Corpuscular Hemoglobin 30.4 pg (28.0-33.3); Mean Corpuscular Volume 92.5 fL (83.0-100.0); Mean Platelet Volume 9.3 fL (9.4-12.4); Monocytes # 0.6 K/mcL (0.0-1.3); Monocytes % 7.2 %; Platelet Count 214 K/mcL (140-400); Red Blood Count 3.59 M/mcL (4.19-5.50); Red Cell Distribution Width 13.5 % (11.5-14.5); Segmented Neutrophils % 60.6 %
[2017-10-01 04:52] LABS: Alanine Aminotransferase 16 Units/L (0-55); Albumin/Globulin Ratio 0.9 (1.1-2.2); Alkaline Phosphatase 86 Units/L (38-126); Aspartate Amino Transferase 15 Units/L (5-34); BUN/Creatinine Ratio 28 (6-26); Bilirubin,Total 0.3 mg/dL (0.2-1.2); Blood Urea Nitrogen 22 mg/dL (8-26); Calcium 9.3 mg/dL (8.6-10.8); Carbon Dioxide 27 mEq/L (19-29); Chloride 106 mEq/L (98-109); Globulin 3.2 g/dL (2.4-3.5); Glucose 102 mg/dL (70-99); Osmolality,Calculated 292 (280-300); Sodium 139 mEq/L (136-145); Total Protein 6.2 g/dL (6.0-8.3); eGFR For African Americans > 60 (> 60); eGFR For Non-African Americans > 60 (> 60)
--- NOTE | 2017-10-01 08:16 | Discharge Summary ---
<Dheeraj Marie - Last Filed: 10/01/17 09:56> Date of Encounter: 10/01/17 Time of Encounter: 08:16 - Discharge Diagnosis (1) Unstable angina Priority: Primary Status: Suspected Comments: Patient is S/P [facility] 09/29/17 with 2 stents placed. No further chest pain at this time. Tolerating medications (2) A-fib Priority: Secondary Status: Chronic Comments: Patient is now receiving Xarelto Qualifiers: Atrial fibrillation type: paroxysmal Qualified Code(s): I48.0 - Paroxysmal atrial fibrillation (3) COPD (chronic obstructive pulmonary disease) Priority: Secondary Status: Chronic Comments: Stable, continue current medications Qualifiers: COPD type: unspecified COPD Qualified Code(s): J44.9 - Chronic obstructive pulmonary disease, unspecified (4) CAD (coronary artery disease) Priority: Primary Status: Chronic Comments: Currently on triple therapy. To follow with cardiology as outpatient. Qualifiers: Coronary Disease-Associated Artery/Lesion type: [place] artery [place] vs. transplanted heart: [place] heart Associated angina: with unstable angina Qualified Code(s): I25.110 - Atherosclerotic heart disease of [place] coronary artery with unstable angina pectoris (5) Essential hypertension Priority: Secondary Status: Chronic Comments: Continue home meds (6) Tobacco abuse Priority: Secondary Status: Chronic (7) HLD (hyperlipidemia) Priority: Secondary Status: Chronic Comments: Smoking cessation counseling again provided Qualifiers: Hyperlipidemia type: mixed hyperlipidemia Qualified Code(s): E78.2 - Mixed hyperlipidemia - Discharge Medications Prescriptions: Nicotine Patch [Nicoderm] 14 mg TD DAILY #14 patch.td24 Nicotine Patch [Nicoderm] 14 mg TD DAILY #14 patch.td24 Ticagrelor [Brilinta] 90 mg PO BID #60 tablet Ticagrelor [Brilinta] 90 mg PO BID #60 tablet Home Medications: Albuterol Sulfate [Albuterol Inhaler] 2 puff IH Q4H PRN 07/24/17 [History] Ezetimibe [Zetia] 10 mg PO DAILY 07/24/17 [History] FLUoxetine HCl [Prozac] 60 mg PO DAILY 07/24/17 [History] Melatonin 5 mg PO HS 07/24/17 [History] Methylphenidate HCl [Ritalin] 20 mg PO BID 07/24/17 [History] Mirtazapine [Remeron] 15 mg PO HS 07/24/17 [History] Temazepam [Restoril] 30 mg PO HS 07/24/17 [History] diazePAM [Valium] 10 mg PO TID PRN 07/24/17 [History] Amlodipine Besylate 10 mg PO DAILY #30 07/27/17 [Rx] Aspirin Enteric Coated [Aspirin EC] 81 mg PO DAILY #30 07/27/17 [Rx] Atenolol [Tenormin] 50 mg PO BID #60 07/27/17 [Rx] Atorvastatin [Lipitor] 80 mg PO HS #60 tab 07/27/17 [Rx] Lisinopril [Zestril] 20 mg PO BID #30 07/27/17 [Rx] Nitroglycerin [Nitrostat] 0.4 mg SL Q5M PRN #30 07/27/17 [Rx] Rivaroxaban [Xarelto] 20 mg PO DAILY #30 tablet 07/27/17 [Rx] HYDROcodone/Acet 10/325 mg [[place] 10-325 mg] 1 tab PO Q6HR PRN 09/27/17 [History ] Nicotine Patch [Nicoderm] 14 mg TD DAILY #14 patch.td24 10/01/17 [Rx] Nicotine Patch [Nicoderm] 14 mg TD DAILY #14 patch.td24 10/01/17 [Rx] Ticagrelor [Brilinta] 90 mg PO BID #60 tablet 10/01/17 [Rx] Ticagrelor [Brilinta] 90 mg PO BID #60 tablet 10/01/17 [Rx] Allergies/Adverse Reactions: 3 Allergy/AdvReac Type Severity Reaction Status Date / Time acetaminophen AdvReac Itching Verified 09/28/17 11:42 [From Darvocet-N] codeine AdvReac Itching Verified 04/02/16 15:53 propoxyphene AdvReac Itching Verified 04/02/16 15:53 [From Darvocet-N] tramadol [From Ultram] AdvReac Itching Verified 04/02/16 15:53 Procedures/tests Complete & Pending: Procedures Performed prior 72 hours Category Date Time Status CL Cardiac Catheterization [CL] Routine [employer] 09/29/17 06:47 Completed NM delicia perf SPECT multi [NM] Routine Exams 09/28/17 07:58 Taken ECG 12 lead ECG [ECG] Routine Y 09/29/17 19:36 Completed SP pharm nuclear stress Routine Y 09/28/17 07:58 Completed Date of admission: 09/27/17 15:57 Primary care physician: PCP NONE Consults: 09/27/17 17:33 Consult to Brand Activation Manager [CONS] Routine Reason for SW Consult: Patient reports he was evicted from his house yesterday and needs a place to live. Please assess for possible needs for post-discharge planning. 09/27/17 17:34 Consult to Occupational Therapy [CONS] Routine Comment: Evaluate, develop and implement POC Reason for Consult: Patient reports he is dizzy when he ambulates and is unsteady on his feet. Please assess patient for strength, stability, safety, ambulation, and possible assistive needs for post-discharge planning. 09/27/17 17:35 Consult to Physical Therapy [CONS] Routine Comment: Evaluate, develop and implement POC Reason for Consult: Patient reports he is dizzy when he ambulates and is unsteady on his feet. Please assess patient for strength, stability, safety, ambulation, and possible assistive needs for post-discharge planning. 09/27/17 17:42 Consult to Nutrition [CONS] Routine Comment: Consulting Provider: NUTRITION Reason for Dietary Consult: PO Supplementation 09/28/17 13:22 Consult to Cardiology [CONS] Routine Comment: Consulting Provider: Cardiology Tiesha Reason for Consult: Chest pain. Significant cardiac history (8 stents). Neg stress but he feels it has always been negative in past. Time Notified: 13:05 Call Completed: Yes 09/30/17 13:54 Consult to Cardiac Rehabilitation-Phase1 [CONS] Routine Comment: Reason for Consult: s/p PCI Call Completed: No Discharging clinician: Sarwat Breaux Anticipated date of discharge: 10/01/17 - Patient Status Disposition: Home, Self-Care Condition: Fair Overall status at discharge: patient is progressing back to baseline - Discharge Instructions Instructions: Nicotine (Absorbed through the skin), Ticagrelor (By mouth), How to Stop Smoking (DC) Follow Up With: NONE,PCP [Primary Care Provider] - ([facility]) Additional Instructions: RISK FACTORS: STOP SMOKING: If you smoke, STOP. Smoking or tobacco use significantly increases your risk of heart disease because nicotine causes the arteries to narrow or constrict. It also causes fats to stick to the artery. Your chances of having a heart attack are greatly increased if you continue to smoke. For more information, call the education line for smoking cessation 2-166-SCHOXXT EAT A LOW FAT/CHOLESTEROL/SODIUM DIET: This diet may help reduce your chances of having a heart attack. LIFTING: With affected extremity: Avoid bending, pushing off and lifting more than 2 pounds for 24 hours The following 48 hours, avoid lifting anything more than 5 pounds Avoid strenuous activity or repetitive motions ACTIVITY: You may walk or climb stairs as tolerated You can resume sexual activity as tolerated In general, you are encouraged to engage in a minimum of 30 minutes or more of moderate intensity physical activity, such as brisk walking, daily or at least 3 -4 times weekly BATHING Do not submerge the site into water (bath tub, hot tub, swimming pool, dishes) for 1 week. This can be a source for infection into the blood stream. You may shower after 24 hours SITE CARE: After 24 hours, you may remove the dressing and leave the site open to air. Keep the site clean and dry. Clean gently and pat dry. You can expect bruising and tenderness that gradually resolve within a week or two. Return to work as instructed per your physician Resume driving as instructed per physician Keep all scheduled follow up appointments Resume medications as instructed IMPORTANT: If prescribed a Platelet Aggregation Inhibitor such as, Plavix, Brilinta or Effient: Duration of therapy is minimum one year These medications are often used in combination with Aspirin in prevention of future heart attacks Never discontinue unless consult with your Form Setter/Driver STROKE (CVA) Risk factors for a stroke are: Age, cigarette smoking, diabetes, excessive alcohol consumption, family history, high blood pressure, overweight, physical inactivity, prior stroke, heart attack, diagnosis of carotid artery stenosis or other artery disease. Warning signs: Sudden numbness or weakness of the face, arm or leg; especially on one side of the body, sudden confusion, trouble speaking or understanding, sudden trouble seeing in one or both eyes, sudden trouble walking, dizziness, loss of balance or coordination, sudden severe headache with no cause. Call 911 or go to the Emergency Room. CONGESTIVE HEART FAILURE: If you have been diagnosed with Congestive Heart Failure (CHF) and your symptoms return, make an appointment with your physician Weigh yourself daily. Notify your physician if you have a weight gain of two or more pounds in one day or five or more pounds in one week. If you experience any difficulty breathing, please call 911 BLEEDING: Although the risk of bleeding is minimal, it can happen. If you have any bleeding from the site, apply firm pressure above the puncture site for 10-15 minutes. If the bleeding does not stop, continue manual pressure and call 911 Contact [facility] ( ) if: You develop a fever greater than 101 degrees Fahrenheit Your site becomes reddened or has any drainage You have an increase in pain or burning at the site or if a large knot forms at the site. If you experience chest pain, shortness of breath, dizziness, or extreme tiredness, stop the activity and rest. Please notify [facility] office if you experience any of these symptoms and they are not relieved by rest please call 911! - Diet and Activity Activity: increase activity as tolerated Diet: other (Cardiac Diet) Interval History: Ray Renteria is a 62-year-old male with past medical history including CAD with prior stenting x8, bilateral carotid endarterectomy, HTN, HLD, A. fib on beta- preeti and Xarelto, COPD, TIA, and tobacco abuse who presented to the [facility] department 09/27/17 c/o of exertional chest pain x2 months, SOB, dizziness. Of note he recently lost his home and has been living at a homeless long term. Chest x-ray was negative for acute cardiopulmonary process. EKG showed sinus rhythm with moderate voltage criteria for LVH normal variant. Troponins negative x3. Stress test negative for ischemia or infarct but given his past history of negative stress testing with subsequent stenting, Cardiology was consulted and his Xarelto was held, left heart catheterization performed and 2 drug-eluting stents were placed to proximal mid circumflex and mid RCA. Triple therapy recommended with aspirin, Brilinta, and Xarelto and patient will follow up with cardiology as an outpatient. No atrial fibrillation was noted on telemetry and he was continued on beta preeti and Xarelto. Patient remained free of chest pain and was discharged in stable condition Hospital course: Mr. Renteria is a 62 year old male Time spent discussing smoking cessation with patient: 3 to 10 minutes - Time Spent with Patient Total time spent providing and/or coordinating discharge services: Greater than 30 minutes - Constitutional Vitals: Temp Pulse Resp BP Pulse Ox 97.5 F L 57 16 142/76 98 10/01/17 07:28 10/01/17 07:28 10/01/17 07:28 10/01/17 07:28 10/01/17 07:28 General appearance: Present: cooperative, A&O X 3, pleasant, underweight, answers questions appropriately - Head Head exam: Present: normocephalic - Eye Eye exam: Present: EOMI, conjuntiva pink - Neck Neck exam general surgery: Absent: lymphadenopathy, thyromegaly - Respiratory Respiratory exam: Present: CTAB. Absent: decreased breath sounds, rales, rhonchi, wheezes - Cardiovascular Cardiovascular exam: Present: RRR. Absent: tachycardia - GI/Abdominal GI/Abdominal exam: Present: soft. Absent: mass, tenderness - Extremities Exam Extremities exam: Present: warm. Absent: tenderness - Neurological Exam Neurological exam: Present: alert, oriented X3, no focal deficits - Skin Skin exam: Present: dry, warm. Absent: rash <Sarwat Breaux - Last Filed: 10/01/17 16:50> Date of Encounter: 10/01/17 - Discharge Diagnosis (1) Unstable angina Status: Suspected (2) A-fib Status: Chronic Qualifiers: Atrial fibrillation type: paroxysmal Qualified Code(s): I48.0 - Paroxysmal atrial fibrillation (3) COPD (chronic obstructive pulmonary disease) Status: Chronic Qualifiers: COPD type: unspecified COPD Qualified Code(s): J44.9 - Chronic obstructive pulmonary disease, unspecified (4) CAD (coronary artery disease) Status: Chronic Qualifiers: Coronary Disease-Associated Artery/Lesion type: [place] artery [place] vs. transplanted heart: [place] heart Associated angina: with unstable angina Qualified Code(s): I25.110 - Atherosclerotic heart disease of [place] coronary artery with unstable angina pectoris (5) Essential hypertension Status: Chronic (6) HLD (hyperlipidemia) Status: Chronic Qualifiers: Hyperlipidemia type: mixed hyperlipidemia Qualified Code(s): E78.2 - Mixed hyperlipidemia (7) Tobacco abuse Status: Chronic Procedures/tests Complete & Pending: Procedures Performed prior 72 hours Category Date Time Status CL Cardiac Catheterization [CL] Routine [employer] 09/29/17 06:47 Completed ECG 12 lead ECG [ECG] Routine Y 09/29/17 19:36 Completed Date of admission: 09/27/17 15:57 Primary care physician: PCP NONE Consults: 09/27/17 17:33 Consult to Brand Activation Manager [CONS] Routine Reason for SW Consult: Patient reports he was evicted from his house yesterday and needs a place to live. Please assess for possible needs for post-discharge planning. 09/27/17 17:34 Consult to Occupational Therapy [CONS] Routine Comment: Evaluate, develop and implement POC Reason for Consult: Patient reports he is dizzy when he ambulates and is unsteady on his feet. Please assess patient for strength, stability, safety, ambulation, and possible assistive needs for post-discharge planning. 09/27/17 17:35 Consult to Physical Therapy [CONS] Routine Comment: Evaluate, develop and implement POC Reason for Consult: Patient reports he is dizzy when he ambulates and is unsteady on his feet. Please assess patient for strength, stability, safety, ambulation, and possible assistive needs for post-discharge planning. 09/27/17 17:42 Consult to Nutrition [CONS] Routine Comment: Consulting Provider: NUTRITION Reason for Dietary Consult: PO Supplementation 09/28/17 13:22 Consult to Cardiology [CONS] Routine Comment: Consulting Provider: Cardiology Tiesha Reason for Consult: Chest pain. Significant cardiac history (8 stents). Neg stress but he feels it has always been negative in past. Time Notified: 13:05 Call Completed: Yes 09/30/17 13:54 Consult to Cardiac Rehabilitation-Phase1 [CONS] Routine Comment: Reason for Consult: s/p PCI Call Completed: No Hospital course: Mr. Renteria is a 62 year old male - Time Spent with Patient Total time spent providing and/or coordinating discharge services: - Constitutional Vitals: Temp Pulse Resp BP Pulse Ox 98.5 F 59 16 124/66 97 10/01/17 16:01 10/01/17 16:01 10/01/17 16:11 10/01/17 16:01 10/01/17 16:11 - Attending Attestation I examined this patient and my medical decision-making was reviewed with the Resident Physician on 10/01/17. I agree with the documented findings, disposition and treatment plan as described except to the extent set forth below. Mr Renteria has been admitted for unstable angina and had stents placed. He is now afebrile with stable vitals. He has no CP. He is ready for discharge when housing arranged. Exam Alert. Comfortable Heart reg No wheeze Abd soft No edema I/P 1. [place] - s/p stents 2. CAD Further diagnoses and plan as above. Awaiting housing arrangements.
[2017-10-01] MEDS: Nicotine 14 MG PATCH.TD24 TD SCH (09:01)
[2017-10-01] MEDS: FLUoxetine 20 MG CAPSULE PO SCH (09:02)
[2017-10-01] MEDS: Methylphenidate HCl 10 MG TABLET PO SCH ×2 (09:02→16:35)
[2017-10-01] MEDS: Lisinopril 20 MG TABLET PO SCH ×2 (09:03→21:19)
[2017-10-01] MEDS: amLODIPine 5 MG TABLET PO SCH (09:03)
[2017-10-01] MEDS: Aspirin Enteric Coated 81 MG Tablet PO SCH (09:03)
[2017-10-01] MEDS: *HR* Ticagrelor 90 MG TABLET PO SCH ×2 (09:03→21:19)
[2017-10-01] MEDS: Ondansetron 4 MG/2 ML VIAL IVP PRN ×2 (09:06→20:12)
[2017-10-01] MEDS: *HR* OxyCODONE/APAP 5/325 TABLET PO PRN ×3 (09:06→21:22)
[2017-10-01] MEDS: *HR* Rivaroxaban 10 MG TABLET PO SCH (16:35)
[2017-10-01] MEDS: *HR* HYDROcodone/Acet 5/325 mg TABLET PO PRN (18:42)
[2017-10-01] MEDS: Melatonin 3 MG TABLET PO SCH (21:19)
[2017-10-01] MEDS: Mirtazapine 15 MG TABLET PO SCH (21:19)
[2017-10-01] MEDS: Temazepam 15 MG CAPSULE PO SCH (21:19)
[2017-10-01] MEDS: diazePAM 10 MG TABLET PO PRN (21:22)
[2017-10-02 03:32] LABS: Basophils # 0.1 K/mcL (0.0-0.2); Basophils % 0.9 %; Eosinophils # 0.4 K/mcL (0.0-0.6); Hematocrit 35.3 % (37.5-50.1); Hemoglobin 11.9 g/dL (12.9-16.9); Immature Granulocytes % 1.1 % (0-4); Lymphocytes # 2.8 K/mcL (0.6-4.6); Lymphocytes % 31.7 %; Mean Corpuscular HGB Conc 33.7 g/dL (31.6-35.5); Mean Corpuscular Volume 91.9 fL (83.0-100.0); Mean Platelet Volume 9.2 fL (9.4-12.4); Monocytes # 0.7 K/mcL (0.0-1.3); Monocytes % 7.5 %; Neutrophils # 4.7 K/mcL (1.6-8.9); Platelet Count 264 K/mcL (140-400); Red Blood Count 3.84 M/mcL (4.19-5.50); Red Cell Distribution Width 13.4 % (11.5-14.5); Segmented Neutrophils % 53.8 %
[2017-10-02 03:45] LABS: Alanine Aminotransferase 16 Units/L (0-55); Albumin 3.2 g/dL (3.5-5.0); Alkaline Phosphatase 89 Units/L (38-126); Aspartate Amino Transferase 16 Units/L (5-34); BUN/Creatinine Ratio 30 (6-26); Bilirubin,Total 0.3 mg/dL (0.2-1.2); Blood Urea Nitrogen 25 mg/dL (8-26); Calcium 9.6 mg/dL (8.6-10.8); Carbon Dioxide 31 mEq/L (19-29); Chloride 103 mEq/L (98-109); Globulin 3.3 g/dL (2.4-3.5); Glucose 99 mg/dL (70-99); Osmolality,Calculated 292 (280-300); Potassium 4.3 mEq/L (3.5-4.5); Sodium 139 mEq/L (136-145); Total Protein 6.5 g/dL (6.0-8.3); eGFR For African Americans > 60 (> 60); eGFR For Non-African Americans > 60 (> 60)
[2017-10-02] MEDS: *HR* Ticagrelor 90 MG TABLET PO SCH (09:19)
[2017-10-02] MEDS: Aspirin Enteric Coated 81 MG Tablet PO SCH (09:19)
[2017-10-02] MEDS: Nicotine 14 MG PATCH.TD24 TD SCH (09:19)
[2017-10-02] MEDS: FLUoxetine 20 MG CAPSULE PO SCH (09:20)
[2017-10-02] MEDS: amLODIPine 5 MG TABLET PO SCH (09:20)
[2017-10-02] MEDS: Lisinopril 20 MG TABLET PO SCH (09:21)
[2017-10-02] MEDS: *HR* OxyCODONE/APAP 5/325 TABLET PO PRN ×2 (09:21→14:41)
[2017-10-02] MEDS: Methylphenidate HCl 10 MG TABLET PO SCH ×2 (09:21→17:00)
[2017-10-02 15:03] VITALS: BP 122/65
--- NOTE | 2017-10-02 16:42 | Internal Med Progress Note ---
Date of Encounter: 10/02/17 Time of Encounter: 16:40 - Assessment and plan (1) CAD (coronary artery disease) Current Visit: Yes Status: Chronic Assessment and plan: [facility] 09/29/17 for chest pain concerning for unstable angina revealed severe 2 vessel CAD, EF 65%, MELISSA to prox-mid circ and mid RCA (functionally significant FFR). DAPT (ASA and Brilinta) uninterrupted. Cont triple therapy--ASA, Brilinta , Xarelto. Cardiology anticipates stopping ASA after 1 month. Qualifiers: Coronary Disease-Associated Artery/Lesion type: [place] artery [place] vs. transplanted heart: [place] heart Associated angina: with unstable angina Qualified Code(s): I25.110 - Atherosclerotic heart disease of [place] coronary artery with unstable angina pectoris (2) A-fib Current Visit: Yes Status: Chronic Assessment and plan: Rate controlled. Cont BB, Xarelto Qualifiers: Atrial fibrillation type: paroxysmal Qualified Code(s): I48.0 - Paroxysmal atrial fibrillation (3) COPD (chronic obstructive pulmonary disease) Current Visit: No Status: Chronic Assessment and plan: Aerosols adjusted. Qualifiers: COPD type: unspecified COPD Qualified Code(s): J44.9 - Chronic obstructive pulmonary disease, unspecified (4) Essential hypertension Current Visit: No Status: Chronic Assessment and plan: BP controlled. Continue home meds. - Subjective Interval history: Examined at bedside. Patient is new to me, information obtained from chart review and patient report. Patient says he feels better and is back to baseline. No chest pain, no shortness of breath. He understands that he will be on ASA, [place] tie and Xarelto and needs to continue uninterrupted. Denies chest pain, no shortness of breath, no abdominal pain and nausea vomiting diarrhea. - Constitutional Vitals: Temp Pulse Resp BP Pulse Ox 97.6 F 51 14 122/65 95 10/02/17 15:02 10/02/17 15:02 10/02/17 15:43 10/02/17 15:02 10/02/17 15:43 General appearance: Present: cooperative, A&O X 3, pleasant, underweight, answers questions appropriately - Head Head exam: Present: atraumatic, normocephalic - Eye Eye exam: Present: PERRL, conjuntiva pink, sclera anicteric Pupils: Present: PERRL - Neck Neck exam general surgery: Present: supple, trachea midline. Absent: lymphadenopathy - Respiratory Respiratory exam: Present: CTAB. Absent: accessory muscle use, rales, rhonchi, wheezes - Cardiovascular Cardiovascular exam: Present: RRR, +S1, +S2. Absent: diastolic murmur, gallop, rubs, systolic murmur - GI/Abdominal GI/Abdominal exam: Present: normal bowel sounds, soft, no peritoneal signs. Absent: distended, tenderness - Extremities Exam Extremities exam: Present: warm, radial pulses palpable and symmetrical. Absent : calf tenderness, cyanotic, pedal edema - Neurological Exam Neurological exam: Present: CN II-XII intact, oriented X3, no focal deficits. Absent: pronater drift, facial droop, speech deficit - Skin Skin exam: Present: dry, intact Internal Medicine: Result - Labs CBC & Chem 7: 10/02/17 02:54 10/02/17 02:54 Labs: Short CBC 10/02/17 Range/Units 02:54 WBC 8.8 (4.3-11.1) K/mcL Hgb 11.9 L (12.9-16.9) g/dL Hct 35.3 L (37.5-50.1) % Plt Count 264 (140-400) K/mcL Neutrophils # 4.7 (1.6-8.9) K/mcL BMP 10/02/17 02:54 Sodium 139 Potassium 4.3 Chloride 103 Carbon Dioxide 31 H BUN 25 Creatinine 0.83 Glucose 99 Calcium 9.6 Liver Function 10/02/17 Range/Units 02:54 Total Bilirubin 0.3 (0.2-1.2) mg/dL AST 16 (5-34) Units/L ALT 16 (0-55) Units/L Alkaline Phosphatase 89 (38-126) Units/L Albumin 3.2 L (3.5-5.0) g/dL - ABG Interpretation ABG results: PT/INR, D-dimer PT 11.4 Seconds (9.4-12.1) 09/28/17 00:25 Consult Discharge Plan - Plan Instructions: Nicotine (Absorbed through the skin), Ticagrelor (By mouth), How to Stop Smoking (DC) Additional Instructions: RISK FACTORS: STOP SMOKING: If you smoke, STOP. Smoking or tobacco use significantly increases your risk of heart disease because nicotine causes the arteries to narrow or constrict. It also causes fats to stick to the artery. Your chances of having a heart attack are greatly increased if you continue to smoke. For more information, call the education line for smoking cessation 3-577-TIOUQYU EAT A LOW FAT/CHOLESTEROL/SODIUM DIET: This diet may help reduce your chances of having a heart attack. LIFTING: With affected extremity: Avoid bending, pushing off and lifting more than 2 pounds for 24 hours The following 48 hours, avoid lifting anything more than 5 pounds Avoid strenuous activity or repetitive motions ACTIVITY: You may walk or climb stairs as tolerated You can resume sexual activity as tolerated In general, you are encouraged to engage in a minimum of 30 minutes or more of moderate intensity physical activity, such as brisk walking, daily or at least 3 -4 times weekly BATHING Do not submerge the site into water (bath tub, hot tub, swimming pool, dishes) for 1 week. This can be a source for infection into the blood stream. You may shower after 24 hours SITE CARE: After 24 hours, you may remove the dressing and leave the site open to air. Keep the site clean and dry. Clean gently and pat dry. You can expect bruising and tenderness that gradually resolve within a week or two. Return to work as instructed per your physician Resume driving as instructed per physician Keep all scheduled follow up appointments Resume medications as instructed IMPORTANT: If prescribed a Platelet Aggregation Inhibitor such as, Plavix, Brilinta or Effient: Duration of therapy is minimum one year These medications are often used in combination with Aspirin in prevention of future heart attacks Never discontinue unless consult with your Senior Trainer STROKE (CVA) Risk factors for a stroke are: Age, cigarette smoking, diabetes, excessive alcohol consumption, family history, high blood pressure, overweight, physical inactivity, prior stroke, heart attack, diagnosis of carotid artery stenosis or other artery disease. Warning signs: Sudden numbness or weakness of the face, arm or leg; especially on one side of the body, sudden confusion, trouble speaking or understanding, sudden trouble seeing in one or both eyes, sudden trouble walking, dizziness, loss of balance or coordination, sudden severe headache with no cause. Call 911 or go to the Emergency Room. CONGESTIVE HEART FAILURE: If you have been diagnosed with Congestive Heart Failure (CHF) and your symptoms return, make an appointment with your physician Weigh yourself daily. Notify your physician if you have a weight gain of two or more pounds in one day or five or more pounds in one week. If you experience any difficulty breathing, please call 911 BLEEDING: Although the risk of bleeding is minimal, it can happen. If you have any bleeding from the site, apply firm pressure above the puncture site for 10-15 minutes. If the bleeding does not stop, continue manual pressure and call 911 Contact [facility] ( ) if: You develop a fever greater than 101 degrees Fahrenheit Your site becomes reddened or has any drainage You have an increase in pain or burning at the site or if a large knot forms at the site. If you experience chest pain, shortness of breath, dizziness, or extreme tiredness, stop the activity and rest. Please notify [facility] office if you experience any of these symptoms and they are not relieved by rest please call 911! Referrals: NONE,PCP [Primary Care Provider] - ([facility]) Prescriptions: Nicotine Patch [Nicoderm] 14 mg TD DAILY #14 patch.td24 Nicotine Patch [Nicoderm] 14 mg TD DAILY #14 patch.td24 Ticagrelor [Brilinta] 90 mg PO BID #60 tablet Ticagrelor [Brilinta] 90 mg PO BID #60 tablet
[2017-10-02] MEDS: *HR* Rivaroxaban 10 MG TABLET PO SCH (17:00)
== END 2017-10-02 18:28 | disposition home or self-care (01) ==
LOC: EMEROO 13:13 → 3BNU 13:13 → SUATTDRO 15:57 → 3BNU 16:40
PROVIDERS: ADMIT Internal Medicine; ATTEND Internal Medicine

== ENCOUNTER 2017-10-07 13:20 | Observation (INO) ==
[2017-10-07] MEDS ORDERED: Aspirin 81 MG TAB.CHEW PO ONE (13:26)
[2017-10-07] MEDS ORDERED: Nitroglycerin 0.4 MG TAB.SUBL SL PRN (13:38)
[2017-10-07 13:56] LABS: Basophils % 0.4 %; Eosinophils # 0.1 K/mcL (0.0-0.6); Eosinophils % 0.9 %; Hematocrit 39.1 % (37.5-50.1); Immature Granulocytes % 0.4 % (0-4); Immature Platelets 2.2 % (1.1-6.1); Lymphocytes # 2.3 K/mcL (0.6-4.6); Lymphocytes % 20.8 %; Mean Corpuscular HGB Conc 34.5 g/dL (31.6-35.5); Mean Corpuscular Hemoglobin 30.9 pg (28.0-33.3); Mean Corpuscular Volume 89.5 fL (83.0-100.0); Monocytes # 0.9 K/mcL (0.0-1.3); Monocytes % 8.7 %; Neutrophils # 7.5 K/mcL (1.6-8.9); Platelet Count 463 K/mcL (140-400); Red Blood Count 4.37 M/mcL (4.19-5.50); Segmented Neutrophils % 68.8 %
[2017-10-07 13:57] LABS: Hemoglobin 13.5 g/dL (12.9-16.9)
--- NOTE | 2017-10-07 13:58 | Emergency Department Note ---
Disposition Clinical Impression: Palpitations Chest pain Qualifiers: Chest pain type: unspecified Qualified Code(s): R07.9 - Chest pain, unspecified Disposition: Admitted As Inpatient Condition: Fair Forms: ED Satisfaction Letter Time of Disposition: 14:37 General Adult HPI - General Chief complaint: ED Chest Pain Stated complaint: chest pain Time Seen by Provider: 10/07/17 13:24 Source: patient, EMS Mode of arrival: EMS Limitations: no limitations Nursing Notes Reviewed: Yes Vital Signs Reviewed: Yes - History of Present Illness HPI Narrative: 62-year-old male presenting to the emergency department with chief complaint of chest pain and shortness of breath. Patient states he was recently discharged hospital less than a week ago and had 2 stents placed and was placed on Brilinta. Patient is currently also on xarelto for A. fib. Patient had a total of 11 stents. Patient states just prior to arrival he was walking in his home when he started feeling short of breath with palpitations. He denies any dizziness, radiation of pain, nausea, vomiting or diaphoresis. He states these symptoms are similar to previous heart attacks but less severe. Patient did not take anything at home for this. He states right now his pain is 1 out of 10. Substernal and nonradiating. Pain Scale: 1 - Related Data Home Medications Medication Instructions Recorded Confirmed Albuterol Sulfate [Albuterol 2 puff IH Q4H PRN 07/24/17 09/27/17 Inhaler] Ezetimibe [Zetia] 10 mg PO DAILY 07/24/17 09/27/17 FLUoxetine HCl [Prozac] 60 mg PO DAILY 07/24/17 09/27/17 Melatonin 5 mg PO HS 07/24/17 09/27/17 Methylphenidate HCl [Ritalin] 20 mg PO BID 07/24/17 09/27/17 Mirtazapine [Remeron] 15 mg PO HS 07/24/17 09/27/17 Temazepam [Restoril] 30 mg PO HS 07/24/17 09/27/17 diazePAM [Valium] 10 mg PO TID PRN 07/24/17 09/27/17 HYDROcodone/Acet 10/325 mg [[place] 1 tab PO Q6HR PRN 09/27/17 09/27/17 10-325 mg] Previous Rx's Medication Instructions Recorded Amlodipine Besylate 10 mg PO DAILY #30 07/27/17 Aspirin Enteric Coated [Aspirin EC] 81 mg PO DAILY #30 07/27/17 Atenolol [Tenormin] 50 mg PO BID #60 07/27/17 Atorvastatin [Lipitor] 80 mg PO HS #60 tab 07/27/17 Lisinopril [Zestril] 20 mg PO BID #30 07/27/17 Nitroglycerin [Nitrostat] 0.4 mg SL Q5M PRN #30 07/27/17 Rivaroxaban [Xarelto] 20 mg PO DAILY #30 tablet 07/27/17 Nicotine Patch [Nicoderm] 14 mg TD DAILY #14 patch.td24 10/01/17 Nicotine Patch [Nicoderm] 14 mg TD DAILY #14 patch.td24 10/01/17 Ticagrelor [Brilinta] 90 mg PO BID #60 tablet 10/01/17 Ticagrelor [Brilinta] 90 mg PO BID #60 tablet 10/01/17 Allergies Allergy/AdvReac Type Severity Reaction Status Date / Time acetaminophen AdvReac Itching Verified 09/28/17 11:42 [From Darvocet-N] codeine AdvReac Itching Verified 04/02/16 15:53 propoxyphene AdvReac Itching Verified 04/02/16 15:53 [From Darvocet-N] tramadol [From Ultram] AdvReac Itching Verified 04/02/16 15:53 All systems ED: reviewed and negative except as stated. Constitutional: Denies: fever, chills Eyes: Reports: as per HPI ENT ED: Reports: as per HPI Cardiovascular: Reports: chest pain, palpitations Respiratory: Reports: dyspnea. Denies: cough, wheezes Gastrointestinal: Denies: abdominal pain, nausea, vomiting Genitourinary: Reports: as per HPI Musculoskeletal: Reports: as per HPI Integumentary: Denies: rash, abrasion, lesions Neurological: Reports: as per HPI Psychiatric: Reports: as per HPI Endocrine: Reports: as per HPI Hematological/Lymphatic: Reports: as per HPI Allergic/Immunologic: Reports: as per HPI Past Medical History - Past Medical History Attestation: Yes The following information was validated with the patient. Medical history: Reports: arthritis, atrial fibrillation, COPD, coronary artery disease, diabetes, hyperlipidemia, hypertension Surgical history: Reports: angioplasty/stent (x8), carotid endarterectomy Psychiatric history: Reports: anxiety, depression - Social History Smoking Status: Current every day smoker Smokeless Tobacco Status: No Alcohol use: Reports: none, occasionally Drug use: Reports: none Physical Exam - General Limitations: no limitations General appearance: alert, in no apparent distress - Head Head exam: atraumatic, normocephalic, normal inspection - Eye Eye exam: Present: normal appearance. Absent: scleral icterus, conjunctival injection - Chest Chest inspection: Present: normal inspection, symmetric chest wall rise. Absent : tenderness, rash - Respiratory Respiratory exam: Present: normal lung sounds bilaterally. Absent: respiratory distress, wheezes - Cardiovascular Cardiovascular exam: Present: regular rate, normal rhythm, normal heart sounds - Abdominal Exam Abdominal exam: Present: soft, Non-Tender. Absent: distention, guarding, rebound - Extremities Exam Extremities exam: Present: normal inspection, full ROM - Neurological Exam Neurological exam: Present: alert, oriented X3 - Psychiatric Psychiatric exam: Present: normal affect, normal mood - Skin Skin exam: Present: warm, intact Course Course Narrative: 62-year-old male presenting with chief complaint of chest pain. Patient has strong history of cardiac disease. Currently on brilinita and xarelto. We will perform a chest pain rule out including CBC, PT/INR, troponin, EKG and chest x-ray. Patient will most likely be admitted due to his heart score being greater than 3. Disposition pending results. Patient is alert and oriented 3 in the room with stable vital signs at this time and agrees with this plan. We will also provide the patient with a full dose aspirin. He is currently having chest pain we will provide him with a nitroglycerin trial as well. - Reevaluation(s) Reevaluation #1: All patient's lab work has come back within normal limits. N that the patient at this time for chest pain rule out due to his heart score being greater than 3. Patient alert and oriented 3 in the room and stable vital signs at this time. He is pain-free at this time. He agrees with this plan. The accepting hospitalist is Dr. Ford. Time: 14:37 Vital Signs Temperature 98.8 F 10/07/17 13:23 Pulse Rate 63 10/07/17 13:23 Respiratory Rate 24 10/07/17 13:23 Blood Pressure 123/58 10/07/17 13:23 O2 Sat by Pulse Oximetry 100 10/07/17 13:23 Temperature 98.8 F 10/07/17 13:23 Pulse Rate 64 10/07/17 14:01 Respiratory Rate 22 10/07/17 13:30 Blood Pressure 100/56 10/07/17 14:01 O2 Sat by Pulse Oximetry 100 10/07/17 14:01 Oxygen Delivery Oxygen Delivery Nasal Cannula Medical Decision Making - Lab Data Result diagrams: 10/07/17 13:49 10/07/17 13:49 Lab Results 10/07/17 10/07/17 10/07/17 Range/Units 13:49 13:49 13:49 WBC 10.8 (4.3-11.1) K/mcL RBC 4.37 (4.19-5.50) M/mcL Hgb 13.5 D (12.9-16.9) g/dL Hct 39.1 (37.5-50.1) % MCV 89.5 (83.0-100.0) fL MCH 30.9 (28.0-33.3) pg MCHC 34.5 (31.6-35.5) g/dL RDW 13.0 (11.5-14.5) % Plt Count 463 H D (140-400) K/mcL MPV 9.0 L (9.4-12.4) fL Immature Gran % 0.4 (0-4) % Seg Neutrophils % 68.8 % Lymphocytes % 20.8 % Monocytes % 8.7 % Eosinophils % 0.9 % Basophils % 0.4 % Neutrophils # 7.5 (1.6-8.9) K/mcL Lymphocytes # 2.3 (0.6-4.6) K/mcL Monocytes # 0.9 (0.0-1.3) K/mcL Eosinophils # 0.1 (0.0-0.6) K/mcL Basophils # 0.0 (0.0-0.2) K/mcL Immature Plt Fraction 2.2 (1.1-6.1) % PT 22.9 H (9.4-12.1) Seconds INR 2.1 APTT 42.8 H (26.0-36.0) Seconds Sodium 136 (136-145) mEq/L Potassium 4.3 (3.5-4.5) mEq/L Chloride 107 (98-109) mEq/L Carbon Dioxide 21 (19-29) mEq/L BUN 19 (8-26) mg/dL Creatinine 1.02 (0.72-1.25) mg/dL Est GFR ( Amer) > 60 (> 60) Est GFR (Non-Af Amer) > 60 (> 60) BUN/Creatinine Ratio 19 (6-26) Glucose 98 (70-99) mg/dL Calculated Osmolality 284 (280-300) Calcium 9.9 (8.6-10.8) mg/dL Troponin I (0-0.03) ng/mL 10/07/17 Range/Units 13:49 WBC (4.3-11.1) K/mcL RBC (4.19-5.50) M/mcL Hgb (12.9-16.9) g/dL Hct (37.5-50.1) % MCV (83.0-100.0) fL MCH (28.0-33.3) pg MCHC (31.6-35.5) g/dL RDW (11.5-14.5) % Plt Count (140-400) K/mcL MPV (9.4-12.4) fL Immature Gran % (0-4) % Seg Neutrophils % % Lymphocytes % % Monocytes % % Eosinophils % % Basophils % % Neutrophils # (1.6-8.9) K/mcL Lymphocytes # (0.6-4.6) K/mcL Monocytes # (0.0-1.3) K/mcL Eosinophils # (0.0-0.6) K/mcL Basophils # (0.0-0.2) K/mcL Immature Plt Fraction (1.1-6.1) % PT (9.4-12.1) Seconds INR APTT (26.0-36.0) Seconds Sodium (136-145) mEq/L Potassium (3.5-4.5) mEq/L Chloride (98-109) mEq/L Carbon Dioxide (19-29) mEq/L BUN (8-26) mg/dL Creatinine (0.72-1.25) mg/dL Est GFR ( Amer) (> 60) Est GFR (Non-Af Amer) (> 60) BUN/Creatinine Ratio (6-26) Glucose (70-99) mg/dL Calculated Osmolality (280-300) Calcium (8.6-10.8) mg/dL Troponin I 0.00 (0-0.03) ng/mL
[2017-10-07 14:00] LABS: INR 2.1; Prothrombin Time 22.9 Seconds (9.4-12.1)
[2017-10-07 14:02] LABS: Activated Partial Thrombo Time 42.8 Seconds (26.0-36.0)
[2017-10-07 14:06] LABS: BUN/Creatinine Ratio 19 (6-26); Blood Urea Nitrogen 19 mg/dL (8-26); Calcium 9.9 mg/dL (8.6-10.8); Carbon Dioxide 21 mEq/L (19-29); Chloride 107 mEq/L (98-109); Glucose 98 mg/dL (70-99); Osmolality,Calculated 284 (280-300); Potassium 4.3 mEq/L (3.5-4.5); Sodium 136 mEq/L (136-145); eGFR For African Americans > 60 (> 60); eGFR For Non-African Americans > 60 (> 60)
--- NOTE | 2017-10-07 14:32 | Emergency Department Note ---
START Narrative - START START: I examined this patient and my medical decision-making was reviewed with the Resident Physician. I agree with the documented findings, disposition and treatment plan as described except to the extent set forth below. 62 yo M with hx of stents in past few weeks. On brelinta and Xarelto and asa. multiple stents before. admit for Obs status. ekg ok vss trop neg
--- NOTE | 2017-10-07 16:44 | Internal Med History&Physical ---
Date of Encounter: 10/07/17 Time of Encounter: 16:30 Assessment and Plan (1) Chest pain Current visit: Yes Status: Acute -Patient with substernal chest pressure and sensation of rapid heartbeat this morning. -Patient just recently discharged status post [facility] with 2 stents. -Will follow serial troponins and monitor on telemetry. -Cardiology consulted and appreciate recommendations. Qualifiers: Chest pain type: unspecified Qualified Code(s): R07.9 - Chest pain, unspecified (2) CAD (coronary artery disease) Current visit: No Status: Chronic - Extensive coronary arterial disease with 11 stents -Cardiology consulted as above Qualifiers: Coronary Disease-Associated Artery/Lesion type: [place] artery [place] vs. transplanted heart: [place] heart Associated angina: with unstable angina Qualified Code(s): I25.110 - Atherosclerotic heart disease of [place] coronary artery with unstable angina pectoris (3) A-fib Current visit: No Status: Chronic -Rate controlled -Continue beta preeti and anticoagulation with Xarelto Qualifiers: Atrial fibrillation type: paroxysmal Qualified Code(s): I48.0 - Paroxysmal atrial fibrillation (4) Essential hypertension Current visit: No Status: Chronic -Controlled; continue [place] inhibitor, calcium channel preeti and beta preeti (5) HLD (hyperlipidemia) Current visit: No Status: Chronic -Continue statin Qualifiers: Hyperlipidemia type: mixed hyperlipidemia Qualified Code(s): E78.2 - Mixed hyperlipidemia (6) Tobacco abuse Current visit: No Status: Chronic -Smoking cessation (7) Anxiety and depression Current visit: No Status: Chronic -Continue home medications. (8) DVT prophylaxis Current visit: No Status: Acute -Heparin subcutaneous Internal Medicine - H&P: HPI Chief complaint: chest pain History of present illness: Patient is a 62-year-old male with past medical history significant for coronary artery disease (stents 11), hypertension, hyperlipidemia, atrial fibrillation (on Xarelto) and current smoker, who presents to the ER on due to rapid heartbeat and chest pressure. Patient reports that when awaken at the [facility], he experienced rapid heartbeat and later on substernal chest pressure with a severity of 2 out of 10 without any radiation that lasted for hours with exertion making discomfort worse and nothing relieving the pain. He reported associated symptoms of dizziness/lightheadedness shortness of breath. Patient was concerned and decided to come in to the ER for reevaluation. Patient was discharged discharged on 08/31/17 status post left heart catheterization on 09/29/17 with 2 stent placements. She will be admitted to the medical floor for ACS rule out. Past Med Surg Social Fam HX - Past Medical History Medical history: arthritis, atrial fibrillation, COPD, coronary artery disease, diabetes, hyperlipidemia, hypertension Psychiatric history: anxiety, depression - Past Surgical History Surgical History: angioplasty/stent, carotid endarterectomy - Social History Smoking Status: Current every day smoker Packs per day: 1/2 Smokeless Tobacco Status: No Alcohol use: none Drug use: none - Family History Father Family Member Ethnicity: Non- Living Status: Hx Family Cardiac Disorders: Yes (Stroke, ) Hx Family Cancer: Yes (Lung) Hx Family Endocrine Disorder: Yes (Cirrhosis) Mother Family Member Ethnicity: Non- Living Status: Hx Family Cardiac Disorders: Yes (CHF, Stents, TIAs) Sister Family Member Ethnicity: Non- Living Status: Hx Family Cancer: Yes (Cervical) Internal Medicine - H&P: Meds Albuterol Sulfate [Albuterol Inhaler] 2 puff IH Q4H PRN 07/24/17 [History] Ezetimibe [Zetia] 10 mg PO DAILY 07/24/17 [History] FLUoxetine HCl [Prozac] 60 mg PO DAILY 07/24/17 [History] Melatonin 5 mg PO HS 07/24/17 [History] Methylphenidate HCl [Ritalin] 20 mg PO BID 07/24/17 [History] Mirtazapine [Remeron] 15 mg PO HS 07/24/17 [History] Temazepam [Restoril] 30 mg PO HS 07/24/17 [History] diazePAM [Valium] 10 mg PO TID PRN 07/24/17 [History] Amlodipine Besylate 10 mg PO DAILY #30 07/27/17 [Rx] Aspirin Enteric Coated [Aspirin EC] 81 mg PO DAILY #30 07/27/17 [Rx] Atenolol [Tenormin] 50 mg PO BID #60 07/27/17 [Rx] Atorvastatin [Lipitor] 80 mg PO HS #60 tab 07/27/17 [Rx] Lisinopril [Zestril] 20 mg PO BID #30 07/27/17 [Rx] Nitroglycerin [Nitrostat] 0.4 mg SL Q5M PRN #30 07/27/17 [Rx] Rivaroxaban [Xarelto] 20 mg PO DAILY #30 tablet 07/27/17 [Rx] HYDROcodone/Acet 10/325 mg [[place] 10-325 mg] 1 tab PO Q6HR PRN 09/27/17 [History ] Ticagrelor [Brilinta] 90 mg PO BID #60 tablet 10/01/17 [Rx] 3 Allergy/AdvReac Type Severity Reaction Status Date / Time acetaminophen AdvReac Itching Verified 09/28/17 11:42 [From Darvocet-N] codeine AdvReac Itching Verified 04/02/16 15:53 propoxyphene AdvReac Itching Verified 04/02/16 15:53 [From Darvocet-N] tramadol [From Ultram] AdvReac Itching Verified 04/02/16 15:53 All Systems PM: A 10-system review of systems was performed and is negative for pertinent findings except as documented above in the HPI. - Constitutional Vitals: Temp Pulse Resp BP Pulse Ox 97.6 F 56 18 132/81 100 10/07/17 15:43 10/07/17 15:43 10/07/17 15:43 10/07/17 15:43 10/07/17 15:43 General appearance: Present: A&O X 3, no acute distress, answers questions appropriately - Head Head exam: Present: normocephalic - ENT ENT exam: Present: mucous membranes dry - Expanded Neck Exam Neck exam: Absent: carotid bruit - Respiratory Respiratory exam: Present: CTAB. Absent: accessory muscle use, rales, rhonchi, wheezes - Cardiovascular Cardiovascular exam: Present: RRR, +S1, +S2. Absent: diastolic murmur, gallop, rubs, systolic murmur - GI/Abdominal GI/Abdominal exam: Present: normal bowel sounds, soft, no peritoneal signs. Absent: distended, tenderness - Extremities Exam Extremities exam: Absent: pedal edema - Neurological Exam Neurological exam: Present: CN II-XII intact, oriented X3 - Psychiatric Psychiatric exam: Present: normal mood - Skin Skin exam: Present: normal color Internal Med - H&P Results - Labs CBC & Chem 7: 10/07/17 13:49 10/07/17 13:49
[2017-10-07] MEDS ORDERED: Naloxone 0.4 MG/ML INJ IVP PRN (16:55)
[2017-10-07] MEDS: Ketorolac 30 MG/ML VIAL IVP PRN (19:54)
[2017-10-08 03:01] LABS: Basophils % 0.5 %; Eosinophils # 0.2 K/mcL (0.0-0.6); Eosinophils % 2.3 %; Hematocrit 35.4 % (37.5-50.1); Immature Granulocytes % 0.4 % (0-4); Lymphocytes # 2.4 K/mcL (0.6-4.6); Mean Corpuscular HGB Conc 33.3 g/dL (31.6-35.5); Mean Corpuscular Hemoglobin 30.4 pg (28.0-33.3); Mean Corpuscular Volume 91.2 fL (83.0-100.0); Mean Platelet Volume 9.4 fL (9.4-12.4); Monocytes # 0.8 K/mcL (0.0-1.3); Monocytes % 10.2 %; Neutrophils # 4.5 K/mcL (1.6-8.9); Platelet Count 315 K/mcL (140-400); Red Blood Count 3.88 M/mcL (4.19-5.50); Red Cell Distribution Width 13.3 % (11.5-14.5); Segmented Neutrophils % 56.6 %
[2017-10-08 03:07] LABS: Hemoglobin 11.8 g/dL (12.9-16.9)
[2017-10-08 03:25] LABS: Calcium 8.9 mg/dL (8.6-10.8); Potassium 3.8 mEq/L (3.5-4.5)
[2017-10-08] MEDS: Ketorolac 30 MG/ML VIAL IVP PRN (05:44)
[2017-10-08] MEDS ORDERED: Nitroglycerin 0.4 MG TAB.SUBL SL PRN (09:48)
[2017-10-08] MEDS ORDERED: diazePAM 10 MG TABLET PO PRN (09:48)
[2017-10-08] MEDS ORDERED: *HR* HYDROcodone/Acet 10/325 mg TABLET PO PRN (09:48)
[2017-10-08] MEDS ORDERED: amLODIPine 5 MG TABLET PO SCH (11:00)
[2017-10-08] MEDS ORDERED: Lisinopril 20 MG TABLET PO SCH ×2 (11:03→21:00)
[2017-10-08] MEDS ORDERED: *HR* Rivaroxaban 10 MG TABLET PO SCH (11:04)
[2017-10-08] MEDS ORDERED: *HR* Ticagrelor 90 MG TABLET PO SCH ×2 (11:05→21:00)
[2017-10-08] MEDS ORDERED: Aspirin Enteric Coated 81 MG Tablet PO SCH (11:15)
[2017-10-08] MEDS ORDERED: FLUoxetine 20 MG CAPSULE PO SCH (11:15)
[2017-10-08] MEDS ORDERED: Methylphenidate HCl 10 MG TABLET PO SCH ×2 (11:15→21:00)
--- NOTE | 2017-10-08 11:39 | Electrocardiograph Report ---
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
[2017-10-08 15:08] VITALS: BP 125/69
--- NOTE | 2017-10-08 15:16 | Cardiology Consult Note ---
<Sally Maza - Last Filed: 10/08/17 15:10> Date of Encounter: 10/08/17 Time of Encounter: 14:30 Assessment and Plan (1) Chest pain Current Visit: Yes Status: Acute Per cardiology: -Admitted with chest pressure while walking. -States similar to previous symptoms. -Denies aggravating or alleviating factors. -Troponins negative. -ECG with SR, imrpoved from previous ECG. -Denies current symptoms. -Will add imdur. Qualifiers: Chest pain type: unspecified Qualified Code(s): R07.9 - Chest pain, unspecified (2) PAF (paroxysmal atrial fibrillation) Current Visit: Yes Status: Acute Per cardiology: -Known PAF. -ON beta preeti and xarelto. -ADmitted to palpitations. -ECG with SR. -Telemetry with no atrial fibrillation appreciated. -Continue current regimen. (3) CAD (coronary artery disease) Current Visit: No Status: Chronic Per cardiology: -Known CAD with [facility] 09/29/17 with 30% left main stenosis, 30% in stent restenosis proximal LAD, 90% proximal circumflex to 99% mid circumflex, MELISSA was placed from proximal to mid circumflex, 80% mid RCA stenosis with MELISSA placed -On asa, statin, beta preeti, and brilinta. -OF note, patient did miss one dose of brilinta due to forgertfulness. -Patient re-educated on importance of dual anti-platelet therapy uninterrupted for at least one year. Patient states understanding. -TTE 07/2017 LVEf preserved, no wall motion abnormalities noted. -ECG with SR, improved from previous ECG. -Will add imdur. Qualifiers: Coronary Disease-Associated Artery/Lesion type: [place] artery [place] vs. transplanted heart: [place] heart Associated angina: angina presence unspecified Qualified Code(s): I25.10 - Atherosclerotic heart disease of [place] coronary artery without angina pectoris Discussion w patient/family: The assessment and plan as outlined above was discussed with the patient and/or family members who expressed understanding and agreement. All questions were answered. Thank you for involving us in the care of your patient. Please call with any questions. Discussed and reviewed with . History of Present Illness Consult date: 10/08/17 Requesting physician: Tru Daniels Consult reason: chest pain, recent MELISSA Chief complaint: palpitations, chest pressure History of present illness: Mr. Renteria is a 62 year old male with a relevant past medical history of CAD s/p multiple PCIs, HTN, hyperlipidemia, COPD, tobacco abuse, PVD, PAF, carotid stenosis. Patient was recently admitted to [facility] and underwent LHC with MELISSA placed. Patient states he was at home and developed palpitations and chest pressure while walking. Patient reports associated shortness of breath and dizziness. Patient reports these symptoms are similar to previous anginal equivalent, however states these symptoms are less severe than previous. Patient denies current chest pressure, palpitations, shortness of breath, or dizziness. Patient states he did miss one dose of his brilinta due to forgertfulness. Past Med Surg Social Fam HX - Past Medical History Attestation: Yes The following information was validated with the patient. Source: patient, old records reviewed Medical history: arthritis, atrial fibrillation, COPD, coronary artery disease, diabetes, hyperlipidemia, hypertension Psychiatric history: anxiety, depression - Past Surgical History Surgical History: angioplasty/stent, carotid endarterectomy - Social History Smoking Status: Current every day smoker Packs per day: 1/2 Smokeless Tobacco Status: No Alcohol use: none Drug use: none - Family History Father Family Member Ethnicity: Non- Living Status: Hx Family Cardiac Disorders: Yes (Stroke, ) Hx Family Cancer: Yes (Lung) Hx Family Endocrine Disorder: Yes (Cirrhosis) Mother Family Member Ethnicity: Non- Living Status: Hx Family Cardiac Disorders: Yes (CHF, Stents, TIAs) Sister Family Member Ethnicity: Non- Living Status: Hx Family Cancer: Yes (Cervical) Medications and Allergies Albuterol Sulfate [Albuterol Inhaler] 2 puff IH Q4H PRN 07/24/17 [History] Ezetimibe [Zetia] 10 mg PO DAILY 07/24/17 [History] FLUoxetine HCl [Prozac] 60 mg PO DAILY 07/24/17 [History] Melatonin 5 mg PO HS 07/24/17 [History] Methylphenidate HCl [Ritalin] 20 mg PO BID 07/24/17 [History] Mirtazapine [Remeron] 15 mg PO HS 07/24/17 [History] Temazepam [Restoril] 30 mg PO HS 07/24/17 [History] diazePAM [Valium] 10 mg PO TID PRN 07/24/17 [History] Amlodipine Besylate 10 mg PO DAILY #30 07/27/17 [Rx] Aspirin Enteric Coated [Aspirin EC] 81 mg PO DAILY #30 07/27/17 [Rx] Atenolol [Tenormin] 50 mg PO BID #60 07/27/17 [Rx] Atorvastatin [Lipitor] 80 mg PO HS #60 tab 07/27/17 [Rx] Lisinopril [Zestril] 20 mg PO BID #30 07/27/17 [Rx] Nitroglycerin [Nitrostat] 0.4 mg SL Q5M PRN #30 07/27/17 [Rx] Rivaroxaban [Xarelto] 20 mg PO DAILY #30 tablet 07/27/17 [Rx] HYDROcodone/Acet 10/325 mg [[place] 10-325 mg] 1 tab PO Q6HR PRN 09/27/17 [History ] Ticagrelor [Brilinta] 90 mg PO BID #60 tablet 10/01/17 [Rx] Isosorbide MONOnitrate (24 HR) [Imdur] 30 mg PO DAILY #30 tab.er.24h 10/08/17 [ Rx] 3 Allergy/AdvReac Type Severity Reaction Status Date / Time acetaminophen AdvReac Itching Verified 09/28/17 11:42 [From Darvocet-N] codeine AdvReac Itching Verified 04/02/16 15:53 propoxyphene AdvReac Itching Verified 04/02/16 15:53 [From Darvocet-N] tramadol [From Ultram] AdvReac Itching Verified 04/02/16 15:53 All Systems Review: A 10-system review of systems was performed and is negative for pertinent findings except as documented above in the HPI. - Cardiovascular Cardiovascular: as per HPI, chest pain with exertion, lightheadedness, palpitations Physical Examination Vital Signs, Last 4 Hours Temp Pulse Resp BP Pulse Ox 10/08/17 15:06 98.0 F 56 16 125/69 100 General: Conversant, No Apparent Distress HEENT: Atraumatic, Normocephaly, Mucus Membranes Moist Neck: No JVD, Normal carotid pulses Cardiac: Reg Rate and Rhythm, Normal S1 and S2, No Murmur Lungs: Normal Breath Sounds, No Wheeze, Rales, Rhonchi Neuro: Alert and responsive, No focal deficits noted Abdomen: Soft, Non-Tender Skin: No rashes noted on visualized skin Musculoskeletal: No Chest Wall Tenderness Extremities: No Clubbing, No Cyanosis, No Edema, Normal Pulses Results 10/08/17 02:15 10/08/17 02:15 Lab Results Current Medications Hydrocodone Bitart/Acetaminophen ([place] 10-325 Mg) 1 each PO Q6HR PRN PRN Reason: Pain Stop: 04/09/18 09:49 Last Admin: 10/08/17 11:19 Dose: 1 each Amlodipine Besylate (Norvasc) 10 mg PO DAILY [facility] Stop: 04/09/18 11:01 Last Admin: 10/08/17 11:18 Dose: 10 mg Aspirin (Aspirin Ec) 81 mg PO DAILY [facility] Stop: 04/09/18 11:16 Last Admin: 10/08/17 11:19 Dose: 81 mg Atenolol (Tenormin) 50 mg PO BID [facility] Stop: 04/09/18 11:03 Last Admin: 10/08/17 11:19 Dose: 50 mg Atorvastatin Calcium (Lipitor) 80 mg PO HS [facility] Stop: 04/09/18 21:01 Diazepam (Valium) 10 mg PO TID PRN PRN Reason: Anxiety Stop: 04/09/18 09:49 Last Admin: 10/08/17 11:18 Dose: 10 mg Fluoxetine HCl (Prozac) 60 mg PO DAILY [facility] PRN Reason: Protocol Stop: 04/09/18 11:16 Last Admin: 10/08/17 11:18 Dose: 60 mg Ketorolac Tromethamine (Toradol) 30 mg IVP Q6HR PRN PRN Reason: Moderate Pain (4-6) Stop: 10/12/17 16:56 Last Admin: 10/08/17 05:44 Dose: 30 mg Lisinopril (Zestril) 20 mg PO BID [facility] PRN Reason: Protocol Stop: 04/09/18 11:04 Last Admin: 10/08/17 11:19 Dose: 20 mg Methylphenidate HCl (Ritalin) 20 mg PO BID [facility] Stop: 04/09/18 11:16 Last Admin: 10/08/17 11:19 Dose: 20 mg Mirtazapine (Remeron) 15 mg PO HS [facility] Stop: 04/09/18 21:01 Naloxone HCl (Narcan) 0.4 mg IVP Q2MIN PRN PRN Reason: Opioid Reversal Stop: 04/08/18 16:56 Nitroglycerin (Nitroglycerin) 0.4 mg SL Q5M PRN PRN Reason: Chest Pain Stop: 04/09/18 09:49 Pharmacy Profile Note (Patient Taking Own Medication) 10 each PO DAILY [facility] Stop: 04/10/18 09:01 Pharmacy Profile Note (Patient Taking Own Medication) 5 each PO HS [facility] Stop: 04/09/18 21:01 Rivaroxaban (Xarelto) 20 mg PO DAILY [facility] Stop: 04/09/18 11:05 Last Admin: 10/08/17 11:18 Dose: 20 mg Temazepam (Restoril) 30 mg PO HS [facility] Stop: 04/09/18 21:01 Ticagrelor (Brilinta) 90 mg PO BID [facility] Stop: 04/09/18 11:06 Last Admin: 10/08/17 11:18 Dose: 90 mg Laboratory Tests 10/07/17 10/07/17 10/07/17 13:49 13:49 19:54 Hgb Creatinine 1.02 Troponin I 0.00 0.00 10/08/17 10/08/17 10/08/17 02:15 02:15 02:15 Hgb 11.8 L D Creatinine 1.56 H D Troponin I 0.00 10/08/17 07:45 Hgb Creatinine Troponin I 0.00 - Imaging and Cardiology Chest Xray: report reviewed Stress Test: report reviewed Echo: report reviewed Cardiac cath: report reviewed - EKG Interpretation EKG results cardiology: personally reviewed (ECG with SR, HR 62.), other ( Telemetry reviewed with average HR previous 12 hours noted to be 60, sinus rhythm. PVCs and PACs noted.) Consult Discharge Plan - Plan Referrals: NONE,PCP [Primary Care Provider] - Prescriptions: Isosorbide MONOnitrate (24 HR) [Imdur] 30 mg PO DAILY #30 tab.er.24h <Mary Quintero - Last Filed: 10/08/17 16:35> Date of Encounter: 10/08/17 - Attending Attestation I have personally performed a face to face evaluation on this patient. I have reviewed and agree with the care plan. History and Exam by me shows: 62-year- old male with history of hyperlipidemia hypertension paroxysmal atrial fibrillation presents to [facility] approximately a week ago with chest pain status post PCI of the mid RCA and circumflex with resolution of his chest pain. Currently presents with A. fib RVR palpitations very mild chest discomfort associated with this. EKG is unremarkable as is lab work. Patient currently rate controlled on Cymbalta for stroke risk reduction and doing well. No further cardiac testing at this time. Outpatient follow-up with cardiology. Exam is unremarkable, patient is euvolemic and resting comfortably Assessment and Plan Discussion w patient/family: The assessment and plan as outlined above was discussed with the patient and/or family members who expressed understanding and agreement. All questions were answered. Thank you for involving us in the care of your patient. Please call with any questions. History of Present Illness History of present illness: Mr. Renteria is a 62 year old male All Systems Review: A 10-system review of systems was performed and is negative for pertinent findings except as documented above in the HPI. Physical Examination Vital Signs, Last 4 Hours Temp Pulse Resp BP Pulse Ox 10/08/17 15:06 98.0 F 56 16 125/69 100 Results 10/08/17 02:15 10/08/17 02:15 Lab Results 10/07/17 10/08/17 10/08/17 19:54 02:15 02:15 WBC 7.9 Hgb 11.8 L D Hct 35.4 L Plt Count 315 Sodium Potassium Chloride Carbon Dioxide BUN Creatinine Glucose Calcium Troponin I 0.00 0.00 10/08/17 10/08/17 02:15 07:45 WBC Hgb Hct Plt Count Sodium 137 Potassium 3.8 Chloride 108 Carbon Dioxide 22 BUN 25 Creatinine 1.56 H D Glucose 94 Calcium 8.9 Troponin I 0.00
--- NOTE | 2017-10-08 16:24 | Discharge Summary ---
Date of Encounter: 10/08/17 Time of Encounter: 13:00 - Discharge Diagnosis (1) Chest pain Priority: Primary Status: Acute Qualifiers: Chest pain type: unspecified Qualified Code(s): R07.9 - Chest pain, unspecified (2) CAD (coronary artery disease) Priority: Secondary Status: Chronic Qualifiers: Coronary Disease-Associated Artery/Lesion type: [place] artery [place] vs. transplanted heart: [place] heart Associated angina: angina presence unspecified Qualified Code(s): I25.10 - Atherosclerotic heart disease of [place] coronary artery without angina pectoris (3) A-fib Priority: Secondary Status: Chronic Qualifiers: Atrial fibrillation type: paroxysmal Qualified Code(s): I48.0 - Paroxysmal atrial fibrillation (4) Essential hypertension Priority: Secondary Status: Chronic (5) HLD (hyperlipidemia) Priority: Secondary Status: Chronic Qualifiers: Hyperlipidemia type: mixed hyperlipidemia Qualified Code(s): E78.2 - Mixed hyperlipidemia (6) Tobacco abuse Priority: Secondary Status: Chronic (7) Anxiety and depression Priority: Secondary Status: Chronic - Discharge Medications Prescriptions: Isosorbide MONOnitrate (24 HR) [Imdur] 30 mg PO DAILY #30 tab.er.24h Home Medications: Albuterol Sulfate [Albuterol Inhaler] 2 puff IH Q4H PRN 07/24/17 [History] Ezetimibe [Zetia] 10 mg PO DAILY 07/24/17 [History] FLUoxetine HCl [Prozac] 60 mg PO DAILY 07/24/17 [History] Melatonin 5 mg PO HS 07/24/17 [History] Methylphenidate HCl [Ritalin] 20 mg PO BID 07/24/17 [History] Mirtazapine [Remeron] 15 mg PO HS 07/24/17 [History] Temazepam [Restoril] 30 mg PO HS 07/24/17 [History] diazePAM [Valium] 10 mg PO TID PRN 07/24/17 [History] Amlodipine Besylate 10 mg PO DAILY #30 07/27/17 [Rx] Aspirin Enteric Coated [Aspirin EC] 81 mg PO DAILY #30 07/27/17 [Rx] Atenolol [Tenormin] 50 mg PO BID #60 07/27/17 [Rx] Atorvastatin [Lipitor] 80 mg PO HS #60 tab 07/27/17 [Rx] Lisinopril [Zestril] 20 mg PO BID #30 07/27/17 [Rx] Nitroglycerin [Nitrostat] 0.4 mg SL Q5M PRN #30 07/27/17 [Rx] Rivaroxaban [Xarelto] 20 mg PO DAILY #30 tablet 07/27/17 [Rx] HYDROcodone/Acet 10/325 mg [[place] 10-325 mg] 1 tab PO Q6HR PRN 09/27/17 [History ] Ticagrelor [Brilinta] 90 mg PO BID #60 tablet 10/01/17 [Rx] Isosorbide MONOnitrate (24 HR) [Imdur] 30 mg PO DAILY #30 tab.er.24h 10/08/17 [ Rx] Allergies/Adverse Reactions: 3 Allergy/AdvReac Type Severity Reaction Status Date / Time acetaminophen AdvReac Itching Verified 09/28/17 11:42 [From Darvocet-N] codeine AdvReac Itching Verified 04/02/16 15:53 propoxyphene AdvReac Itching Verified 04/02/16 15:53 [From Darvocet-N] tramadol [From Ultram] AdvReac Itching Verified 04/02/16 15:53 Date of admission: 10/07/17 14:42 Primary care physician: PCP NONE Consults: 10/07/17 15:56 Consult to Signal Integrity Engineer [CONS] Routine Reason for SW Consult: staying at [facility], has apartment but requiring alot of work. 10/08/17 09:46 Consult to Cardiology [CONS] Routine Comment: Consulting Provider: Cardiology Tiesha Reason for Consult: chest pain with signficant cardiac history (11 stents) Call Completed: No - Patient Status Disposition: Home, Self-Care Condition: Fair - Discharge Instructions Follow Up With: NONE,PCP [Primary Care Provider] - Hospital course: Patient is a 62-year-old male with past medical history significant for coronary artery disease (stents 11), hypertension, hyperlipidemia, atrial fibrillation (on Xarelto) and current smoker, who presents to the ER on due to rapid heartbeat and chest pressure. Patient reports that when awaken at the homeless [facility], he experienced rapid heartbeat and later on substernal chest pressure with a severity of 2 out of 10 without any radiation that lasted for hours with exertion making discomfort worse and nothing relieving the pain. He reported associated symptoms of dizziness/lightheadedness shortness of breath. Patient was concerned and decided to come in to the ER for reevaluation. Patient was discharged discharged on 08/31/17 status post left heart catheterization on 09/29/17 with 2 stent placements. She will be admitted to the medical floor for ACS rule out. During patients hospital stay, cardiac biomarkers were negative. Cardiology was consulted with recommendations to add Imdur to home regimen. Patient will be discharged to follow up with primary care provider. - Time Spent with Patient Total time spent providing and/or coordinating discharge services: - Constitutional Vitals: Temp Pulse Resp BP Pulse Ox 98.0 F 56 16 125/69 100 10/08/17 15:06 10/08/17 15:06 10/08/17 15:06 10/08/17 15:06 10/08/17 15:06 General appearance: Present: A&O X 3, no acute distress, answers questions appropriately - Cardiovascular Cardiovascular exam: Present: RRR, +S1, +S2. Absent: diastolic murmur, gallop, rubs, systolic murmur
[2017-10-08] MEDS ORDERED: Temazepam 15 MG CAPSULE PO SCH (21:00)
[2017-10-08] MEDS ORDERED: Mirtazapine 15 MG TABLET PO SCH (21:00)
[2017-10-08] MEDS ORDERED: MELATONIN 5 MG TABLET PO SCH (21:00)
[2017-10-09] MEDS ORDERED: Aspirin Enteric Coated 81 MG Tablet PO SCH (09:00)
[2017-10-09] MEDS ORDERED: FLUoxetine 20 MG CAPSULE PO SCH (09:00)
[2017-10-09] MEDS ORDERED: Isosorbide MONOnitrate (24 HR) 30 MG TAB.ER.24H PO SCH (09:00)
[2017-10-09] MEDS ORDERED: *HR* Rivaroxaban 10 MG TABLET PO SCH (09:00)
[2017-10-09] MEDS ORDERED: amLODIPine 5 MG TABLET PO SCH (09:00)
== END 2017-10-08 17:30 | disposition home or self-care (01) ==
LOC: EMEROO 13:20 → 3BNU 13:20 → SUATTDRO 14:42 → 3BNU 15:24
PROVIDERS: ADMIT Internal Medicine; ATTEND Hospitalist

== ENCOUNTER 2020-08-13 09:25 | Inpatient (IN) ==
[2020-08-13] MEDS ORDERED: *HR* Heparin 10,000 UNIT/10 ML VIAL ONE (09:58)
[2020-08-13] MEDS ORDERED: Heparin 1,000 UNITS/500 mL 500 ML ONE (09:58)
[2020-08-13] MEDS ORDERED: 0.9 % Sodium Chloride 1,000 ML ONE (09:58)
[2020-08-13] MEDS ORDERED: Nitroglycerin 1,000 MCG/10 ML VIAL IV ONE (09:58)
[2020-08-13] MEDS ORDERED: ISOVUE-370 200 ML INFUS..BTL ONE (09:58)
[2020-08-13] MEDS: 0.9 % Sodium Chloride 1,000 ML IVC SCH (10:31)
[2020-08-13] MEDS ORDERED: *HR* FentaNYL (PF) 100 MCG/2 ML VIAL ONE (11:09)
[2020-08-13] MEDS ORDERED: *HR* Midazolam HCl 2 MG/2 ML VIAL ONE (11:09)
[2020-08-13] MEDS ORDERED: Naloxone 0.4 MG/ML INJ IVP PRN (15:09)
[2020-08-13] MEDS ORDERED: Ondansetron ODT 4 MG TAB.RAPDIS SL PRN (15:09)
[2020-08-13] MEDS ORDERED: Mag Hydrox/Al Hydrox/Simeth 30 ML UDC PO PRN (15:09)
[2020-08-13] MEDS ORDERED: Perflutren Lipid Microsphere 1.3 ML in 0.9 % Sodium Chloride 8.7 ML IVP PRN (15:12)
[2020-08-13] MEDS ORDERED: *HR* Heparin 5,000 UNIT/ML VIAL IVP PRN ×2 (15:13)
[2020-08-13] MEDS ORDERED: *HR* Heparin 5,000 UNIT/ML VIAL IVP ONE (15:13)
[2020-08-13] MEDS ORDERED: Nitroglycerin 0.4 MG TAB.SUBL SL PRN (15:14)
[2020-08-13] MEDS ORDERED: Heparin 25,000UNIT/250ML 1/2NS 25,000 UNIT/250 ML IV.SOLN IVC SCH (15:15)
[2020-08-13] MEDS: Heparin 25,000UNIT/250ML 1/2NS 25,000 UNIT/250 ML IV.SOLN IVC SCH (16:16)
[2020-08-13 16:18] LABS: Heparin anti-factor XA UFH 0.1 IU/mL (0.30-0.70); INR 1.2; Prothrombin Time 13.2 Seconds (9.4-12.1)
[2020-08-13 16:19] LABS: Hematocrit 37.3 % (37.5-50.1); Mean Corpuscular HGB Conc 32.2 g/dL (31.6-35.5); Mean Corpuscular Hemoglobin 28.8 pg (28.0-33.3); Mean Corpuscular Volume 89.7 fL (83.0-100.0); Mean Platelet Volume 9.6 fL (9.4-12.4); Platelet Count 206 K/mcL (140-400); Red Blood Count 4.16 M/mcL (4.19-5.50); Red Cell Distribution Width 13.8 % (11.5-14.5); White Blood Count 7.7 K/mcL (4.3-11.1)
[2020-08-13 16:20] LABS: Activated Partial Thrombo Time 41.1 Seconds (26.0-36.0)
[2020-08-13] MEDS: *HR* HYDROcodone/Acet 10/325 mg TABLET PO PRN (20:14)
[2020-08-13] MEDS: Mirtazapine 15 MG TABLET PO SCH (20:14)
[2020-08-13] MEDS: Methylphenidate HCl 10 MG TABLET PO SCH (20:15)
[2020-08-13] MEDS: atenoloL 50 MG TABLET PO SCH (20:15)
[2020-08-13] MEDS: Budesonide/Formoterol 80/4.5 1 PUFF INH IH SCH (21:10)
[2020-08-14 02:36] LABS: Basophils % 0.4 %; Eosinophils # 0.2 K/mcL (0.0-0.6); Eosinophils % 3.3 %; Hematocrit 36.4 % (37.5-50.1); Hemoglobin 11.8 g/dL (12.9-16.9); Immature Granulocytes % 0.4 % (0-4); Lymphocytes # 1.5 K/mcL (0.6-4.6); Lymphocytes % 20.7 %; Mean Corpuscular HGB Conc 32.4 g/dL (31.6-35.5); Mean Corpuscular Hemoglobin 29.1 pg (28.0-33.3); Mean Corpuscular Volume 89.9 fL (83.0-100.0); Mean Platelet Volume 9.6 fL (9.4-12.4); Monocytes # 0.4 K/mcL (0.0-1.3); Monocytes % 5.4 %; Neutrophils # 4.9 K/mcL (1.6-8.9); Platelet Count 188 K/mcL (140-400); Red Blood Count 4.05 M/mcL (4.19-5.50); Red Cell Distribution Width 13.6 % (11.5-14.5); Segmented Neutrophils % 69.8 %
[2020-08-14 02:53] LABS: BUN/Creatinine Ratio 14 (6-26); Blood Urea Nitrogen 15 mg/dL (8-23); Carbon Dioxide 24 mEq/L (23-29); Chloride 102 mEq/L (98-107); Glucose 107 mg/dL (70-105); Osmolality,Calculated 275 (280-300); Potassium 4.1 mEq/L (3.5-5.1); Sodium 132 mEq/L (136-145); eGFR For African Americans > 60 (> 60); eGFR For Non-African Americans > 60 (> 60)
[2020-08-14] MEDS: Budesonide/Formoterol 80/4.5 1 PUFF INH IH SCH ×2 (07:42→19:58)
[2020-08-14] MEDS ORDERED: Artificial Tears SOLN 15 ML BOTTLE BOTH EYES PRN (08:57)
[2020-08-14] MEDS ORDERED: NON-FORMULARY MEDICATION 1 EACH EACH (Ezetimibe [Zetia] 10 MG) PO SCH (09:00)
[2020-08-14] MEDS: diazePAM 10 MG TABLET PO PRN (09:13)
[2020-08-14] MEDS: FLUoxetine 20 MG CAPSULE PO SCH (09:13)
[2020-08-14] MEDS: Aspirin Enteric Coated 81 MG Tablet PO SCH (09:14)
[2020-08-14] MEDS: amLODIPine 5 MG TABLET PO SCH (09:14)
[2020-08-14] MEDS: atenoloL 50 MG TABLET PO SCH ×2 (09:14→21:14)
[2020-08-14] MEDS: Methylphenidate HCl 10 MG TABLET PO SCH ×2 (09:14→21:14)
[2020-08-14] MEDS: 0.9 % Sodium Chloride 1,000 ML IVC SCH (11:18)
[2020-08-14] MEDS: Heparin 25,000UNIT/250ML 1/2NS 25,000 UNIT/250 ML IV.SOLN IVC SCH (20:44)
[2020-08-14] MEDS: Mirtazapine 15 MG TABLET PO SCH (21:14)
[2020-08-14] MEDS: *HR* HYDROcodone/Acet 10/325 mg TABLET PO PRN (21:21)
[2020-08-15] MEDS: diazePAM 10 MG TABLET PO PRN (01:17)
[2020-08-15] MEDS: Budesonide/Formoterol 80/4.5 1 PUFF INH IH SCH ×2 (07:15→19:59)
[2020-08-15] MEDS: Aspirin Enteric Coated 81 MG Tablet PO SCH (08:01)
[2020-08-15] MEDS: Methylphenidate HCl 10 MG TABLET PO SCH ×2 (08:01→21:38)
[2020-08-15] MEDS: 0.9 % Sodium Chloride 1,000 ML IVC SCH (08:01)
[2020-08-15] MEDS: atenoloL 50 MG TABLET PO SCH ×2 (08:01→21:39)
[2020-08-15] MEDS: FLUoxetine 20 MG CAPSULE PO SCH (08:02)
[2020-08-15] MEDS: amLODIPine 5 MG TABLET PO SCH (08:02)
[2020-08-15] MEDS: *HR* HYDROcodone/Acet 10/325 mg TABLET PO PRN ×2 (08:30→21:38)
[2020-08-15] MEDS: Heparin 25,000UNIT/250ML 1/2NS 25,000 UNIT/250 ML IV.SOLN IVC SCH (15:59)
[2020-08-15] MEDS: Mirtazapine 15 MG TABLET PO SCH (21:38)
[2020-08-16] MEDS: 0.9 % Sodium Chloride 1,000 ML IVC SCH ×2 (03:10→21:08)
[2020-08-16] MEDS: Heparin 25,000UNIT/250ML 1/2NS 25,000 UNIT/250 ML IV.SOLN IVC SCH (04:13)
[2020-08-16 06:37] LABS: Basophils % 0.6 %; Eosinophils # 0.2 K/mcL (0.0-0.6); Eosinophils % 2.9 %; Hematocrit 37.3 % (37.5-50.1); Hemoglobin 11.8 g/dL (12.9-16.9); Immature Granulocytes % 1.2 % (0-4); Lymphocytes # 1.7 K/mcL (0.6-4.6); Lymphocytes % 26.5 %; Mean Corpuscular HGB Conc 31.6 g/dL (31.6-35.5); Mean Corpuscular Hemoglobin 28.6 pg (28.0-33.3); Mean Corpuscular Volume 90.5 fL (83.0-100.0); Mean Platelet Volume 9.4 fL (9.4-12.4); Monocytes # 0.4 K/mcL (0.0-1.3); Monocytes % 6.3 %; Neutrophils # 4.1 K/mcL (1.6-8.9); Platelet Count 188 K/mcL (140-400); Red Blood Count 4.12 M/mcL (4.19-5.50); Red Cell Distribution Width 13.8 % (11.5-14.5); Segmented Neutrophils % 62.5 %; White Blood Count 6.5 K/mcL (4.3-11.1)
[2020-08-16 06:56] LABS: BUN/Creatinine Ratio 13 (6-26); Blood Urea Nitrogen 14 mg/dL (8-23); Calcium 9.1 mg/dL (8.6-10.3); Carbon Dioxide 25 mEq/L (23-29); Chloride 102 mEq/L (98-107); Glucose 120 mg/dL (70-105); Osmolality,Calculated 276 (280-300); Potassium 3.8 mEq/L (3.5-5.1); Sodium 132 mEq/L (136-145); eGFR For African Americans > 60 (> 60); eGFR For Non-African Americans > 60 (> 60)
[2020-08-16] MEDS: amLODIPine 5 MG TABLET PO SCH (07:20)
[2020-08-16] MEDS: atenoloL 50 MG TABLET PO SCH ×2 (07:20→21:03)
[2020-08-16] MEDS: Methylphenidate HCl 10 MG TABLET PO SCH ×2 (07:20→21:03)
[2020-08-16] MEDS: FLUoxetine 20 MG CAPSULE PO SCH (07:20)
[2020-08-16] MEDS: Aspirin Enteric Coated 81 MG Tablet PO SCH (07:20)
[2020-08-16] MEDS: *HR* HYDROcodone/Acet 10/325 mg TABLET PO PRN ×2 (07:27→21:08)
[2020-08-16] MEDS: Budesonide/Formoterol 80/4.5 1 PUFF INH IH SCH ×2 (07:30→20:28)
[2020-08-16 13:06] LABS: Chol/HDL Ratio 5.4 (0-4.9)
[2020-08-16 13:10] LABS: Estimated Average Glucose 120 mg/dl
[2020-08-16] MEDS: Mirtazapine 15 MG TABLET PO SCH (21:03)
[2020-08-17] MEDS: Budesonide/Formoterol 80/4.5 1 PUFF INH IH SCH ×2 (07:43→20:31)
[2020-08-17] MEDS: atenoloL 50 MG TABLET PO SCH ×2 (09:39→21:17)
[2020-08-17] MEDS: amLODIPine 5 MG TABLET PO SCH (09:39)
[2020-08-17] MEDS: *HR* HYDROcodone/Acet 10/325 mg TABLET PO PRN ×2 (09:39→17:55)
[2020-08-17] MEDS: Methylphenidate HCl 10 MG TABLET PO SCH ×2 (09:39→21:17)
[2020-08-17] MEDS: Aspirin Enteric Coated 81 MG Tablet PO SCH (09:39)
[2020-08-17] MEDS: FLUoxetine 20 MG CAPSULE PO SCH (09:39)
[2020-08-17] MEDS: Chlorhexidine Rinse 15 ML MOUTHWASH MM SCH ×2 (09:41→21:16)
[2020-08-17] MEDS: Heparin 25,000UNIT/250ML 1/2NS 25,000 UNIT/250 ML IV.SOLN IVC SCH (13:24)
[2020-08-17] MEDS: 0.9 % Sodium Chloride 1,000 ML IVC SCH (17:50)
[2020-08-17] MEDS: Mirtazapine 15 MG TABLET PO SCH (21:17)
[2020-08-18] MEDS ORDERED: Norepinephrine 4 MG in 0.9 % Sodium Chloride 250 ML IVC PRN (02:00)
[2020-08-18] MEDS ORDERED: Dextrose 50 % in Water (Vial) 30 ML, Sodium Bicarbonate 20 MEQ, Potassium Chloride 15 M... TH ONE (02:00)
[2020-08-18] MEDS ORDERED: Dextrose 50 % in Water (Vial) 30 ML, Sodium Bicarbonate 20 MEQ, Lidocaine 1% 5 ML, Insu... TH ONE ×3 (02:00)
[2020-08-18] MEDS ORDERED: Insulin Human Regular 100 UNIT in 0.9 % Sodium Chloride 100 ML IV PRN (02:00)
[2020-08-18] MEDS ORDERED: Heparin 15,000 UNIT in 0.9 % Sodium Chloride 500 ML IV ONE (02:00)
[2020-08-18] MEDS: Budesonide/Formoterol 80/4.5 1 PUFF INH IH SCH ×2 (07:26→19:45)
[2020-08-18] MEDS ORDERED: CeFAZolin Syr 2,000MG/20 ML 2,000 MG/20 ML SYRINGE IVPB ONE (07:30)
[2020-08-18] MEDS ORDERED: ceFAZolin 2,000 MG in 0.9 % Sodium Chloride 100 ML IVPB ONE (07:30)
[2020-08-18] MEDS: Chlorhexidine Rinse 15 ML MOUTHWASH MM SCH ×3 (07:56→20:26)
[2020-08-18] MEDS: atenoloL 50 MG TABLET PO SCH (08:03)
[2020-08-18] MEDS: Aspirin Enteric Coated 81 MG Tablet PO SCH (08:03)
[2020-08-18] MEDS: *HR* HYDROcodone/Acet 10/325 mg TABLET PO PRN ×2 (08:06→21:15)
[2020-08-18] MEDS: FLUoxetine 20 MG CAPSULE PO SCH (08:11)
[2020-08-18] MEDS: Methylphenidate HCl 10 MG TABLET PO SCH ×2 (08:11→19:54)
[2020-08-18] MEDS: amLODIPine 5 MG TABLET PO SCH (08:11)
[2020-08-18] MEDS ORDERED: Famotidine 20 MG/2 ML VIAL ONE (12:34)
[2020-08-18] MEDS ORDERED: *HR* Etomidate 20 MG/10 ML AMPUL IVP ONE (12:34)
[2020-08-18] MEDS ORDERED: *HR* PHENYLEPHRINE 1,000 MCG/10 ML SYRINGE IVP ONE (12:34)
[2020-08-18] MEDS ORDERED: *HR* Rocuronium Bromide 50 MG/5 ML VIAL ONE ×2 (12:34→12:42)
[2020-08-18] MEDS ORDERED: Tranexamic Acid 1,000 MG/10 ML VIAL ONE ×2 (12:36→15:01)
[2020-08-18] MEDS ORDERED: Calcium Gluconate 1,000 MG/10 ML VIAL ONE ×3 (12:36→12:44)
[2020-08-18] MEDS ORDERED: Protamine Sulfate 250 MG/25 ML VIAL IVP ONE (12:36)
[2020-08-18] MEDS ORDERED: *HR* Midazolam HCl 5 MG/5 ML VIAL IVP ONE (12:39)
[2020-08-18] MEDS ORDERED: *HR* FentaNYL (PF) 1,000 MCG/20 ML VIAL ONE (12:39)
[2020-08-18] MEDS ORDERED: NiCARdipine 2.5 MG/10 ML Syringe IVPB ONE (12:42)
[2020-08-18 13:35] LABS: ABG Base Excess -5 mEq/L (-2 to 3); ABG Chloride 101 mEq/L (98-107); ABG Glucose 95 mg/dL (60-95); ABG HCO3 22 mEq/L (21-27); ABG Ionized Calcium 1.22 mmol/L (1.15-1.35); ABG Oxygen Saturation 86 % (95-98); ABG PCO2 51 mmHg (35-45); ABG PH 7.25 pH Units (7.32-7.45); ABG PO2 60 mmHg (85-104); ABG TCO2 24 mEq/L (20-26)
[2020-08-18] MEDS ORDERED: *HR* Amiodarone 150 MG/3 ML VIAL IVPB ONE (14:00)
[2020-08-18] MEDS ORDERED: Amiodarone Premix 360 MG/200 ML BAG IVC ONE (14:01)
[2020-08-18] MEDS ORDERED: Mannitol 25% vial 12.5 GM/50 ML VIAL IVPB ONE (14:18)
[2020-08-18] MEDS ORDERED: *HR* Heparin 10,000 UNIT/10 ML VIAL IR ONE (14:18)
[2020-08-18] MEDS ORDERED: *HR* Phenylephrine 10 MG/ML VIAL IVC ONE (14:18)
[2020-08-18] MEDS ORDERED: Albumin Human 25% 25 GM/100 ML IV.SOLN IVPB ONE (14:18)
[2020-08-18] MEDS ORDERED: Tranexamic Acid 1,000 MG/10 ML VIAL IR ONE (14:18)
[2020-08-18] MEDS ORDERED: Lidocaine 2% Syringe 100 MG/5 ML IVP ONE (14:18)
[2020-08-18 14:46] LABS: ABG Base Excess -2 mEq/L (-2 to 3); ABG Chloride 101 mEq/L (98-107); ABG Glucose 143 mg/dL (60-95); ABG HCO3 24 mEq/L (21-27); ABG Ionized Calcium 1.21 mmol/L (1.15-1.35); ABG Oxygen Saturation 96 % (95-98); ABG PCO2 45 mmHg (35-45); ABG PH 7.34 pH Units (7.32-7.45); ABG PO2 84 mmHg (85-104); ABG TCO2 26 mEq/L (20-26)
[2020-08-18] MEDS ORDERED: EPINEPHrine 1 MG/ML VIAL ONE (14:49)
[2020-08-18] MEDS ORDERED: *HR* Atropine Sulfate 1 MG/ML VIAL ONE (14:56)
[2020-08-18 15:19] LABS: ABG Base Excess -4 mEq/L (-2 to 3); ABG Chloride 103 mEq/L (98-107); ABG Glucose 149 mg/dL (60-95); ABG HCO3 21 mEq/L (21-27); ABG Ionized Calcium 1.11 mmol/L (1.15-1.35); ABG Oxygen Saturation 98 % (95-98); ABG PCO2 38 mmHg (35-45); ABG PH 7.36 pH Units (7.32-7.45); ABG PO2 109 mmHg (85-104); ABG TCO2 23 mEq/L (20-26)
[2020-08-18 15:45] LABS: ABG Base Excess -4 mEq/L (-2 to 3); ABG Chloride 101 mEq/L (98-107); ABG Glucose 145 mg/dL (60-95); ABG HCO3 22 mEq/L (21-27); ABG Ionized Calcium 1.69 mmol/L (1.15-1.35); ABG Oxygen Saturation 97 % (95-98); ABG PCO2 44 mmHg (35-45); ABG PH 7.31 pH Units (7.32-7.45); ABG PO2 95 mmHg (85-104); ABG TCO2 24 mEq/L (20-26)
[2020-08-18] MEDS ORDERED: Insulin Regular, Human 100 UNIT/ML IV PRN (15:50)
[2020-08-18] MEDS ORDERED: Potassium Chloride 40 MEQ/200 ML BAG IVPB PRN (15:50)
[2020-08-18] MEDS ORDERED: *HR* Dextrose 50 % in Water (Vial) 50 ML VIAL IVP PRN (15:50)
[2020-08-18] MEDS ORDERED: Ondansetron 4 MG/2 ML VIAL IVP PRN (15:52)
[2020-08-18] MEDS ORDERED: Calcium Gluconate 1gm/50mL 1 GM/50 ML BAG IVPB PRN (15:54)
[2020-08-18] MEDS ORDERED: Albumin Human 5% 12.5 GM/250 ML IV.SOLN ONE (16:16)
[2020-08-18] MEDS: Amiodarone Premix 360 MG/200 ML BAG IVC ONE ×2 (16:25→20:20)
[2020-08-18] MEDS ORDERED: niCARdipine 20 MG/200 ML MLS IVC ONE (16:26)
[2020-08-18] MEDS: niCARdipine 20 MG/200 ML MLS IVC SCH ×4 (16:30→23:37)
[2020-08-18 16:52] LABS: ABG Base Excess -2 mEq/L (-2 to 3); ABG HCO3 25 mEq/L (21-27); ABG Oxygen Saturation 88 % (95-98); ABG PCO2 50 mmHg (35-45); ABG PH 7.31 pH Units (7.32-7.45); ABG PO2 60 mmHg (85-104); ABG TCO2 26 mEq/L (20-26); Blood Gas Modality AF; Blood Gas VT 650 cc
[2020-08-18 17:10] LABS: Basophils # 0.1 K/mcL (0.0-0.2); Basophils % 0.5 %; Eosinophils # 0.2 K/mcL (0.0-0.6); Eosinophils % 1.5 %; Hemoglobin 10.6 g/dL (12.9-16.9); Lymphocytes % 13.3 %; Mean Corpuscular HGB Conc 32.1 g/dL (31.6-35.5); Mean Corpuscular Hemoglobin 29.1 pg (28.0-33.3); Mean Corpuscular Volume 90.7 fL (83.0-100.0); Mean Platelet Volume 9.3 fL (9.4-12.4); Monocytes # 0.7 K/mcL (0.0-1.3); Monocytes % 4.2 %; Neutrophils # 12.1 K/mcL (1.6-8.9); Platelet Count 182 K/mcL (140-400); Red Blood Count 3.64 M/mcL (4.19-5.50); Red Cell Distribution Width 13.8 % (11.5-14.5); Segmented Neutrophils % 78.5 %
[2020-08-18 17:11] LABS: Lymphocytes # 2.1 K/mcL (0.6-4.6); White Blood Count 15.4 K/mcL (4.3-11.1)
[2020-08-18 17:21] LABS: BUN/Creatinine Ratio 19 (6-26); Blood Urea Nitrogen 15 mg/dL (8-23); Calcium 9.7 mg/dL (8.6-10.3); Carbon Dioxide 25 mEq/L (23-29); Chloride 103 mEq/L (98-107); Glucose 114 mg/dL (70-105); Magnesium 1.8 mg/dL (1.6-2.6); Osmolality,Calculated 280 (280-300); Potassium 4.5 mEq/L (3.5-5.1); Sodium 134 mEq/L (136-145); eGFR For African Americans > 60 (> 60); eGFR For Non-African Americans > 60 (> 60)
[2020-08-18 17:26] LABS: INR 1.3; Prothrombin Time 15.3 Seconds (9.4-12.1)
[2020-08-18 17:31] LABS: Activated Partial Thrombo Time 34.5 Seconds (26.0-36.0)
[2020-08-18] MEDS: Heparin 25,000UNIT/250ML 1/2NS 25,000 UNIT/250 ML IV.SOLN IVC SCH (18:20)
[2020-08-18] MEDS: Metoclopramide 10 MG/2 ML VIAL IVP SCH ×2 (18:37→23:39)
[2020-08-18] MEDS: 0.9 % Sodium Chloride w KCl 20 MEQ/1,000 ML MLS IVC SCH (18:37)
[2020-08-18] MEDS: Pantoprazole 40 MG VIAL IVP SCH (18:37)
[2020-08-18] MEDS: Insulin Human Regular 100 UNIT in 0.9 % Sodium Chloride 100 ML IVC SCH (18:48)
[2020-08-18] MEDS: Norepinephrine 4 MG/254 ML IV.SOLN IVC SCH (18:48)
[2020-08-18] MEDS: *HR* FentaNYL (PF) 100 MCG/2 ML VIAL IVP PRN (19:45)
[2020-08-18] MEDS: Mirtazapine 15 MG TABLET PO SCH (19:54)
[2020-08-18 20:14] LABS: ABG Base Excess -2 mEq/L (-2 to 3); ABG HCO3 24 mEq/L (21-27); ABG Oxygen Saturation 96 % (95-98); ABG PCO2 44 mmHg (35-45); ABG PH 7.34 pH Units (7.32-7.45); ABG PO2 88 mmHg (85-104); ABG TCO2 25 mEq/L (20-26); Blood Gas Modality AF; Blood Gas VT 650 cc
[2020-08-18] MEDS: 0.9 % Sodium Chloride 1,000 ML IVC SCH (20:21)
[2020-08-18] MEDS: Furosemide 20 MG/2 ML VIAL IVP SCH (20:26)
[2020-08-18] MEDS: Amiodarone Premix 360 MG/200 ML BAG IVC SCH (21:10)
[2020-08-18] MEDS: CeFAZolin 2 GM/120 ML BAG IVPB SCH (21:10)
[2020-08-19 00:10] LABS: ABG Base Excess -2 mEq/L (-2 to 3); ABG HCO3 23 mEq/L (21-27); ABG Oxygen Saturation 94 % (95-98); ABG PCO2 40 mmHg (35-45); ABG PH 7.37 pH Units (7.32-7.45); ABG PO2 71 mmHg (85-104); ABG TCO2 24 mEq/L (20-26); Blood Gas Modality CPAP/PS; Blood Gas Pressure Support 5 cm H2O
[2020-08-19] MEDS: *HR* FentaNYL (PF) 100 MCG/2 ML VIAL IVP PRN ×4 (00:27→14:48)
[2020-08-19 01:54] LABS: ABG Base Excess -2 mEq/L (-2 to 3); ABG HCO3 24 mEq/L (21-27); ABG Oxygen Saturation 93 % (95-98); ABG PCO2 44 mmHg (35-45); ABG PH 7.35 pH Units (7.32-7.45); ABG PO2 71 mmHg (85-104); ABG TCO2 25 mEq/L (20-26); Blood Gas Modality 6LPM
[2020-08-19] MEDS: *HR* HYDROcodone/Acet 10/325 mg TABLET PO PRN ×4 (03:15→20:54)
[2020-08-19 04:33] LABS: INR 1.1; Prothrombin Time 13.1 Seconds (9.4-12.1)
[2020-08-19 04:35] LABS: Activated Partial Thrombo Time 30.8 Seconds (26.0-36.0)
[2020-08-19 04:40] LABS: Basophils # 0.1 K/mcL (0.0-0.2); Basophils % 0.4 %; Eosinophils # 0.1 K/mcL (0.0-0.6); Hematocrit 33.3 % (37.5-50.1); Hemoglobin 10.6 g/dL (12.9-16.9); Immature Granulocytes % 1.1 % (0-4); Lymphocytes # 0.7 K/mcL (0.6-4.6); Lymphocytes % 6.4 %; Mean Corpuscular HGB Conc 31.8 g/dL (31.6-35.5); Mean Corpuscular Hemoglobin 28.8 pg (28.0-33.3); Mean Corpuscular Volume 90.5 fL (83.0-100.0); Mean Platelet Volume 9.6 fL (9.4-12.4); Monocytes # 0.9 K/mcL (0.0-1.3); Monocytes % 7.5 %; Neutrophils # 9.5 K/mcL (1.6-8.9); Platelet Count 227 K/mcL (140-400); Red Blood Count 3.68 M/mcL (4.19-5.50); Red Cell Distribution Width 14.5 % (11.5-14.5); Segmented Neutrophils % 83.6 %; White Blood Count 11.4 K/mcL (4.3-11.1)
[2020-08-19 04:58] LABS: BUN/Creatinine Ratio 18 (6-26); Blood Urea Nitrogen 20 mg/dL (8-23); Calcium 8.9 mg/dL (8.6-10.3); Carbon Dioxide 21 mEq/L (23-29); Chloride 100 mEq/L (98-107); Glucose 131 mg/dL (70-105); Magnesium 2.3 mg/dL (1.6-2.6); Osmolality,Calculated 274 (280-300); Sodium 130 mEq/L (136-145); eGFR For African Americans > 60 (> 60); eGFR For Non-African Americans > 60 (> 60)
[2020-08-19] MEDS: CeFAZolin 2 GM/120 ML BAG IVPB SCH (05:08)
[2020-08-19] MEDS: Metoclopramide 10 MG/2 ML VIAL IVP SCH ×4 (05:08→23:07)
[2020-08-19] MEDS: Budesonide/Formoterol 80/4.5 1 PUFF INH IH SCH ×2 (07:35→20:06)
[2020-08-19] MEDS ORDERED: *HR* Dextrose 50 % in Water (Vial) 50 ML VIAL IVP PRN (07:37)
[2020-08-19] MEDS ORDERED: Dextrose Gel 15 GM/37.5 ML TUBE PO PRN ×2 (07:37)
[2020-08-19] MEDS ORDERED: D5% in Water 1,000 ML IVC PRN (07:37)
[2020-08-19] MEDS: niCARdipine 20 MG/200 ML MLS IVC SCH ×5 (08:25→23:57)
[2020-08-19] MEDS: Chlorhexidine Rinse 15 ML MOUTHWASH MM SCH ×2 (08:32→20:46)
[2020-08-19] MEDS: Pantoprazole 40 MG VIAL IVP SCH (08:32)
[2020-08-19] MEDS: Furosemide 20 MG/2 ML VIAL IVP SCH ×2 (08:33→20:45)
[2020-08-19] MEDS: FLUoxetine 20 MG CAPSULE PO SCH (08:33)
[2020-08-19] MEDS: Aspirin Enteric Coated 81 MG Tablet PO SCH (08:33)
[2020-08-19] MEDS: Methylphenidate HCl 10 MG TABLET PO SCH ×2 (08:33→20:45)
[2020-08-19] MEDS: Amiodarone Premix 360 MG/200 ML BAG IVC SCH ×2 (09:18→20:16)
[2020-08-19] MEDS: Norepinephrine 4 MG/254 ML IV.SOLN IVC SCH (10:00)
[2020-08-19] MEDS: Albumin Human 5% 12.5 GM/250 ML IV.SOLN IVPB PRN ×4 (10:02→17:00)
[2020-08-19] MEDS: Insulin LISPRO 300 UNITS/3 ML VIAL SQ SCH ×3 (10:24→20:20)
[2020-08-19] MEDS: amLODIPine 5 MG TABLET PO SCH (10:24)
[2020-08-19] MEDS: 0.9 % Sodium Chloride w KCl 20 MEQ/1,000 ML MLS IVC SCH (14:33)
[2020-08-19] MEDS: Heparin 25,000UNIT/250ML 1/2NS 25,000 UNIT/250 ML IV.SOLN IVC SCH (16:53)
[2020-08-19] MEDS: Insulin Human Regular 100 UNIT in 0.9 % Sodium Chloride 100 ML IVC SCH (16:59)
[2020-08-19] MEDS ORDERED: Albumin Human 5% 12.5 GM/250 ML IV.SOLN IVPB PRN (17:42)
[2020-08-19] MEDS: Mirtazapine 15 MG TABLET PO SCH (20:46)
[2020-08-20] MEDS: *HR* HYDROcodone/Acet 10/325 mg TABLET PO PRN ×4 (03:31→20:50)
[2020-08-20 04:11] LABS: Basophils % 0.3 %; Eosinophils # 0.1 K/mcL (0.0-0.6); Eosinophils % 1.4 %; Hematocrit 27.9 % (37.5-50.1); Immature Granulocytes % 0.6 % (0-4); Lymphocytes # 0.9 K/mcL (0.6-4.6); Lymphocytes % 9.6 %; Mean Corpuscular HGB Conc 32.3 g/dL (31.6-35.5); Mean Corpuscular Hemoglobin 29.1 pg (28.0-33.3); Mean Corpuscular Volume 90.3 fL (83.0-100.0); Mean Platelet Volume 9.9 fL (9.4-12.4); Monocytes # 0.7 K/mcL (0.0-1.3); Monocytes % 7.5 %; Neutrophils # 7.1 K/mcL (1.6-8.9); Platelet Count 145 K/mcL (140-400); Red Blood Count 3.09 M/mcL (4.19-5.50); Red Cell Distribution Width 14.6 % (11.5-14.5); Segmented Neutrophils % 80.6 %; White Blood Count 8.8 K/mcL (4.3-11.1)
[2020-08-20 04:24] LABS: BUN/Creatinine Ratio 23 (6-26); Blood Urea Nitrogen 21 mg/dL (8-23); Calcium 8.9 mg/dL (8.6-10.3); Carbon Dioxide 24 mEq/L (23-29); Chloride 100 mEq/L (98-107); Glucose 115 mg/dL (70-105); Osmolality,Calculated 274 (280-300); Potassium 3.7 mEq/L (3.5-5.1); Sodium 130 mEq/L (136-145); eGFR For African Americans > 60 (> 60); eGFR For Non-African Americans > 60 (> 60)
[2020-08-20] MEDS: niCARdipine 20 MG/200 ML MLS IVC SCH ×6 (04:49→22:55)
[2020-08-20] MEDS: Metoclopramide 10 MG/2 ML VIAL IVP SCH ×4 (06:05→23:36)
[2020-08-20] MEDS: Budesonide/Formoterol 80/4.5 1 PUFF INH IH SCH ×2 (07:15→21:09)
[2020-08-20] MEDS: Insulin LISPRO 300 UNITS/3 ML VIAL SQ SCH ×2 (08:46→20:50)
[2020-08-20] MEDS: Furosemide 20 MG/2 ML VIAL IVP SCH ×2 (09:09→20:50)
[2020-08-20] MEDS: Pantoprazole 40 MG VIAL IVP SCH (09:09)
[2020-08-20] MEDS: FLUoxetine 20 MG CAPSULE PO SCH (09:10)
[2020-08-20] MEDS: amLODIPine 5 MG TABLET PO SCH (09:10)
[2020-08-20] MEDS: Chlorhexidine Rinse 15 ML MOUTHWASH MM SCH ×2 (09:10→20:49)
[2020-08-20] MEDS: Methylphenidate HCl 10 MG TABLET PO SCH ×2 (09:10→20:49)
[2020-08-20] MEDS: Aspirin Enteric Coated 81 MG Tablet PO SCH (09:11)
[2020-08-20] MEDS: Amiodarone Premix 360 MG/200 ML BAG IVC SCH ×2 (09:20→21:21)
[2020-08-20] MEDS: Ipratropium/Albuterol Neb 3 ML IH SCH ×4 (10:50→21:09)
[2020-08-20] MEDS: *HR* Heparin 5,000 UNIT/ML VIAL SQ SCH ×2 (12:05→18:13)
[2020-08-20] MEDS: Piperacillin/Tazobactam 3.375 GM in 0.9 % Sodium Chloride Mini Bag 100 ML IVPB SCH ×2 (12:05→20:49)
[2020-08-20] MEDS: 0.9 % Sodium Chloride w KCl 20 MEQ/1,000 ML MLS IVC SCH (12:06)
[2020-08-20] MEDS: Vancomycin 1,250 MG/262.5 ML IV.SOLN IVPB SCH ×2 (12:06→23:36)
[2020-08-20] MEDS: Norepinephrine 4 MG/254 ML IV.SOLN IVC SCH (18:06)
[2020-08-20] MEDS: Mirtazapine 15 MG TABLET PO SCH (20:50)
[2020-08-21] MEDS: niCARdipine 20 MG/200 ML MLS IVC SCH ×2 (03:27→08:03)
[2020-08-21] MEDS: Piperacillin/Tazobactam 3.375 GM in 0.9 % Sodium Chloride Mini Bag 100 ML IVPB SCH ×3 (03:28→20:00)
[2020-08-21] MEDS: *HR* HYDROcodone/Acet 10/325 mg TABLET PO PRN ×4 (03:28→18:37)
[2020-08-21] MEDS: Ipratropium/Albuterol Neb 3 ML IH SCH ×4 (03:53→21:45)
[2020-08-21 04:54] LABS: Basophils % 0.2 %; Eosinophils # 0.2 K/mcL (0.0-0.6); Eosinophils % 1.5 %; Hematocrit 28.6 % (37.5-50.1); Hemoglobin 9.4 g/dL (12.9-16.9); Immature Granulocytes % 0.6 % (0-4); Lymphocytes # 0.6 K/mcL (0.6-4.6); Lymphocytes % 6.2 %; Mean Corpuscular HGB Conc 32.9 g/dL (31.6-35.5); Mean Corpuscular Hemoglobin 29.3 pg (28.0-33.3); Mean Corpuscular Volume 89.1 fL (83.0-100.0); Mean Platelet Volume 10.3 fL (9.4-12.4); Monocytes # 0.4 K/mcL (0.0-1.3); Monocytes % 4.3 %; Neutrophils # 8.8 K/mcL (1.6-8.9); Platelet Count 154 K/mcL (140-400); Red Blood Count 3.21 M/mcL (4.19-5.50); Red Cell Distribution Width 14.4 % (11.5-14.5); Segmented Neutrophils % 87.2 %
[2020-08-21 05:13] LABS: BUN/Creatinine Ratio 25 (6-26); Blood Urea Nitrogen 19 mg/dL (8-23); Calcium 8.4 mg/dL (8.6-10.3); Carbon Dioxide 21 mEq/L (23-29); Chloride 99 mEq/L (98-107); Glucose 123 mg/dL (70-105); Osmolality,Calculated 274 (280-300); Potassium 4.1 mEq/L (3.5-5.1); Sodium 130 mEq/L (136-145); eGFR For African Americans > 60 (> 60); eGFR For Non-African Americans > 60 (> 60)
[2020-08-21] MEDS: Metoclopramide 10 MG/2 ML VIAL IVP SCH (06:02)
[2020-08-21] MEDS: *HR* Heparin 5,000 UNIT/ML VIAL SQ SCH ×2 (06:02→17:01)
[2020-08-21] MEDS: Chlorhexidine Rinse 15 ML MOUTHWASH MM SCH (08:00)
[2020-08-21] MEDS: Furosemide 20 MG/2 ML VIAL IVP SCH (08:01)
[2020-08-21] MEDS: Pantoprazole 40 MG VIAL IVP SCH (08:01)
[2020-08-21] MEDS: FLUoxetine 20 MG CAPSULE PO SCH (08:01)
[2020-08-21] MEDS: Aspirin Enteric Coated 81 MG Tablet PO SCH (08:02)
[2020-08-21] MEDS: Methylphenidate HCl 10 MG TABLET PO SCH ×2 (08:02→20:38)
[2020-08-21] MEDS: Amiodarone Premix 360 MG/200 ML BAG IVC SCH (10:11)
[2020-08-21] MEDS: Budesonide/Formoterol 80/4.5 1 PUFF INH IH SCH ×2 (10:26→21:45)
[2020-08-21] MEDS: Norepinephrine 4 MG/254 ML IV.SOLN IVC SCH (11:25)
[2020-08-21] MEDS: Vancomycin 1,250 MG/262.5 ML IV.SOLN IVPB SCH (11:39)
[2020-08-21] MEDS: Insulin LISPRO 300 UNITS/3 ML VIAL SQ SCH (20:35)
[2020-08-21] MEDS: Mirtazapine 15 MG TABLET PO SCH (20:38)
[2020-08-21] MEDS ORDERED: 0.9 % Sodium Chloride 500 ML ONE (23:35)
[2020-08-22] MEDS ORDERED: Vancomycin 1,500 MG/265 ML IV.SOLN IVPB SCH (00:01)
[2020-08-22] MEDS: Amiodarone Premix 360 MG/200 ML BAG IVC SCH (00:30)
[2020-08-22] MEDS: *HR* HYDROcodone/Acet 10/325 mg TABLET PO PRN ×4 (01:50→21:04)
[2020-08-22] MEDS: Ipratropium/Albuterol Neb 3 ML IH SCH ×4 (03:49→21:32)
[2020-08-22 03:56] LABS: Basophils % 0.2 %; Eosinophils # 0.1 K/mcL (0.0-0.6); Eosinophils % 1.3 %; Hematocrit 29.4 % (37.5-50.1); Hemoglobin 9.4 g/dL (12.9-16.9); Immature Granulocytes % 0.7 % (0-4); Lymphocytes # 0.6 K/mcL (0.6-4.6); Lymphocytes % 6.3 %; Mean Corpuscular Hemoglobin 28.5 pg (28.0-33.3); Mean Corpuscular Volume 89.1 fL (83.0-100.0); Mean Platelet Volume 9.9 fL (9.4-12.4); Monocytes # 0.5 K/mcL (0.0-1.3); Monocytes % 4.8 %; Neutrophils # 8.2 K/mcL (1.6-8.9); Platelet Count 181 K/mcL (140-400); Red Cell Distribution Width 14.6 % (11.5-14.5); Segmented Neutrophils % 86.7 %; White Blood Count 9.4 K/mcL (4.3-11.1)
[2020-08-22] MEDS: Piperacillin/Tazobactam 3.375 GM in 0.9 % Sodium Chloride Mini Bag 100 ML IVPB SCH ×3 (04:13→19:56)
[2020-08-22 04:17] LABS: BUN/Creatinine Ratio 28 (6-26); Blood Urea Nitrogen 22 mg/dL (8-23); Calcium 8.7 mg/dL (8.6-10.3); Carbon Dioxide 21 mEq/L (23-29); Chloride 98 mEq/L (98-107); Glucose 134 mg/dL (70-105); Osmolality,Calculated 269 (280-300); Potassium 3.9 mEq/L (3.5-5.1); Sodium 127 mEq/L (136-145); eGFR For African Americans > 60 (> 60); eGFR For Non-African Americans > 60 (> 60)
[2020-08-22 04:35] LABS: ABG Base Excess 7 mEq/L (-2 to 3); ABG HCO3 33 mEq/L (21-27); ABG Oxygen Saturation 92 % (95-98); ABG PCO2 52 mmHg (35-45); ABG PH 7.41 pH Units (7.32-7.45); ABG PO2 65 mmHg (85-104); ABG TCO2 34 mEq/L (20-26); Blood Gas Modality ASSIST CONTROL; Blood Gas VT 500 cc
[2020-08-22] MEDS: *HR* Heparin 5,000 UNIT/ML VIAL SQ SCH ×2 (05:48→17:00)
[2020-08-22] MEDS: FLUoxetine 20 MG CAPSULE PO SCH (08:06)
[2020-08-22] MEDS: Aspirin Enteric Coated 81 MG Tablet PO SCH (08:06)
[2020-08-22] MEDS: Methylphenidate HCl 10 MG TABLET PO SCH ×2 (08:06→21:00)
[2020-08-22] MEDS ORDERED: Furosemide 20 MG/2 ML VIAL IVP ONE (08:16)
[2020-08-22] MEDS: Norepinephrine 4 MG/254 ML IV.SOLN IVC SCH (08:32)
[2020-08-22] MEDS: amLODIPine 5 MG TABLET PO SCH (09:05)
[2020-08-22] MEDS: Budesonide/Formoterol 80/4.5 1 PUFF INH IH SCH ×2 (09:41→21:33)
[2020-08-22] MEDS: *HR* Amiodarone 200 MG TABLET PO SCH (09:59)
[2020-08-22] MEDS ORDERED: Lactulose Oral Soln 20 GM/30 ML UDC PO ONE (18:05)
[2020-08-22] MEDS: Mirtazapine 15 MG TABLET PO SCH (20:59)
[2020-08-22] MEDS: Insulin LISPRO 300 UNITS/3 ML VIAL SQ SCH (21:00)
[2020-08-23] MEDS: *HR* HYDROcodone/Acet 10/325 mg TABLET PO PRN ×3 (02:46→22:03)
[2020-08-23] MEDS: Ipratropium/Albuterol Neb 3 ML IH SCH ×4 (03:27→21:55)
[2020-08-23] MEDS: Piperacillin/Tazobactam 3.375 GM in 0.9 % Sodium Chloride Mini Bag 100 ML IVPB SCH ×3 (03:50→20:42)
[2020-08-23 04:28] LABS: Basophils % 0.2 %; Eosinophils # 0.2 K/mcL (0.0-0.6); Eosinophils % 2.6 %; Hematocrit 28.5 % (37.5-50.1); Immature Granulocytes % 1.2 % (0-4); Lymphocytes # 0.6 K/mcL (0.6-4.6); Lymphocytes % 6.5 %; Mean Corpuscular HGB Conc 31.6 g/dL (31.6-35.5); Mean Corpuscular Hemoglobin 28.8 pg (28.0-33.3); Mean Corpuscular Volume 91.1 fL (83.0-100.0); Mean Platelet Volume 9.9 fL (9.4-12.4); Monocytes # 0.5 K/mcL (0.0-1.3); Monocytes % 5.1 %; Neutrophils # 7.5 K/mcL (1.6-8.9); Platelet Count 197 K/mcL (140-400); Red Blood Count 3.13 M/mcL (4.19-5.50); Red Cell Distribution Width 14.8 % (11.5-14.5); Segmented Neutrophils % 84.4 %; White Blood Count 8.9 K/mcL (4.3-11.1)
[2020-08-23 05:49] LABS: Calcium 8.6 mg/dL (8.6-10.3); Glucose 112 mg/dL (70-105)
[2020-08-23 05:50] LABS: BUN/Creatinine Ratio 31 (6-26); Blood Urea Nitrogen 22 mg/dL (8-23); Carbon Dioxide 23 mEq/L (23-29); Chloride 98 mEq/L (98-107); Osmolality,Calculated 270 (280-300); Potassium 4.6 mEq/L (3.5-5.1); Sodium 128 mEq/L (136-145); eGFR For African Americans > 60 (> 60); eGFR For Non-African Americans > 60 (> 60)
[2020-08-23] MEDS: *HR* Heparin 5,000 UNIT/ML VIAL SQ SCH ×2 (05:51→17:31)
[2020-08-23] MEDS: Aspirin Enteric Coated 81 MG Tablet PO SCH (08:08)
[2020-08-23] MEDS: FLUoxetine 20 MG CAPSULE PO SCH (08:08)
[2020-08-23] MEDS: Methylphenidate HCl 10 MG TABLET PO SCH ×2 (08:08→20:42)
[2020-08-23] MEDS: *HR* Amiodarone 200 MG TABLET PO SCH ×3 (08:08→20:42)
[2020-08-23] MEDS: Budesonide/Formoterol 80/4.5 1 PUFF INH IH SCH ×2 (10:24→21:55)
[2020-08-23] MEDS ORDERED: Acetaminophen 325 MG TABLET PO PRN (15:40)
[2020-08-23] MEDS: Sennosides/Docusate Sodium TABLET PO SCH ×2 (15:54→20:42)
[2020-08-23] MEDS: Mirtazapine 15 MG TABLET PO SCH (20:42)
[2020-08-23] MEDS: Insulin LISPRO 300 UNITS/3 ML VIAL SQ SCH (22:05)
[2020-08-24] MEDS: Piperacillin/Tazobactam 3.375 GM in 0.9 % Sodium Chloride Mini Bag 100 ML IVPB SCH ×3 (03:38→20:19)
[2020-08-24] MEDS: Ipratropium/Albuterol Neb 3 ML IH SCH ×4 (04:20→22:40)
[2020-08-24 05:27] LABS: BUN/Creatinine Ratio 29 (6-26); Blood Urea Nitrogen 19 mg/dL (8-23); Calcium 8.1 mg/dL (8.6-10.3); Carbon Dioxide 22 mEq/L (23-29); Chloride 102 mEq/L (98-107); Glucose 86 mg/dL (70-105); Osmolality,Calculated 272 (280-300); Potassium 3.8 mEq/L (3.5-5.1); Sodium 130 mEq/L (136-145); eGFR For African Americans > 60 (> 60); eGFR For Non-African Americans > 60 (> 60)
[2020-08-24 05:42] LABS: Basophils % 0.5 %; Eosinophils # 0.5 K/mcL (0.0-0.6); Eosinophils % 5.8 %; Hematocrit 28.2 % (37.5-50.1); Hemoglobin 8.9 g/dL (12.9-16.9); Immature Granulocytes % 0.8 % (0-4); Lymphocytes # 0.8 K/mcL (0.6-4.6); Lymphocytes % 10.4 %; Mean Corpuscular HGB Conc 31.6 g/dL (31.6-35.5); Mean Corpuscular Hemoglobin 28.9 pg (28.0-33.3); Mean Corpuscular Volume 91.6 fL (83.0-100.0); Mean Platelet Volume 10.2 fL (9.4-12.4); Monocytes # 0.5 K/mcL (0.0-1.3); Monocytes % 5.9 %; Neutrophils # 6.1 K/mcL (1.6-8.9); Nucleated Red Blood Cells 0.3 /100 WBC (0); Platelet Count 225 K/mcL (140-400); Red Blood Count 3.08 M/mcL (4.19-5.50); Red Cell Distribution Width 14.7 % (11.5-14.5); Segmented Neutrophils % 76.6 %; White Blood Count 7.9 K/mcL (4.3-11.1)
[2020-08-24] MEDS: *HR* Heparin 5,000 UNIT/ML VIAL SQ SCH (05:45)
[2020-08-24] MEDS: *HR* HYDROcodone/Acet 10/325 mg TABLET PO PRN ×3 (07:42→20:47)
[2020-08-24] MEDS: *HR* Amiodarone 200 MG TABLET PO SCH ×2 (08:01→20:25)
[2020-08-24] MEDS: Methylphenidate HCl 10 MG TABLET PO SCH ×2 (08:01→20:26)
[2020-08-24] MEDS: FLUoxetine 20 MG CAPSULE PO SCH (08:01)
[2020-08-24] MEDS: Sennosides/Docusate Sodium TABLET PO SCH ×2 (08:02→20:26)
[2020-08-24] MEDS: Aspirin Enteric Coated 81 MG Tablet PO SCH (08:02)
[2020-08-24] MEDS: Budesonide/Formoterol 80/4.5 1 PUFF INH IH SCH ×2 (09:55→22:40)
[2020-08-24] MEDS ORDERED: Dextrose Gel 15 GM/37.5 ML TUBE PO PRN ×2 (10:01)
[2020-08-24] MEDS ORDERED: diazePAM 10 MG TABLET PO PRN (10:01)
[2020-08-24] MEDS ORDERED: Naloxone 0.4 MG/ML INJ IVP PRN (10:01)
[2020-08-24] MEDS ORDERED: *HR* Dextrose 50 % in Water (Vial) 50 ML VIAL IVP PRN (10:01)
[2020-08-24] MEDS ORDERED: Mag Hydrox/Al Hydrox/Simeth 30 ML UDC PO PRN (10:01)
[2020-08-24] MEDS ORDERED: D5% in Water 1,000 ML IVC PRN (10:01)
[2020-08-24] MEDS ORDERED: Acetaminophen 325 MG TABLET PO PRN (10:01)
[2020-08-24] MEDS ORDERED: Ondansetron 4 MG/2 ML VIAL IVP PRN (10:01)
[2020-08-24] MEDS ORDERED: Nitroglycerin 0.4 MG TAB.SUBL SL PRN (10:01)
[2020-08-24] MEDS: Insulin LISPRO 300 UNITS/3 ML VIAL SQ SCH ×3 (11:33→20:50)
[2020-08-24] MEDS: Mirtazapine 15 MG TABLET PO SCH (20:25)
[2020-08-25] MEDS: Piperacillin/Tazobactam 3.375 GM in 0.9 % Sodium Chloride Mini Bag 100 ML IVPB SCH ×3 (04:15→20:23)
[2020-08-25] MEDS: Ipratropium/Albuterol Neb 3 ML IH SCH ×4 (04:22→22:25)
[2020-08-25] MEDS: Insulin LISPRO 300 UNITS/3 ML VIAL SQ SCH ×4 (08:56→20:06)
[2020-08-25] MEDS ORDERED: Furosemide 40 MG TABLET PO SCH (09:00)
[2020-08-25] MEDS: Methylphenidate HCl 10 MG TABLET PO SCH ×2 (09:06→20:23)
[2020-08-25] MEDS: Furosemide 40 MG TABLET PO SCH (09:06)
[2020-08-25] MEDS: Aspirin Enteric Coated 81 MG Tablet PO SCH (09:06)
[2020-08-25] MEDS: FLUoxetine 20 MG CAPSULE PO SCH (09:07)
[2020-08-25] MEDS: *HR* Amiodarone 200 MG TABLET PO SCH ×2 (09:07→20:22)
[2020-08-25] MEDS: Sennosides/Docusate Sodium TABLET PO SCH ×2 (09:07→20:22)
[2020-08-25] MEDS: *HR* Rivaroxaban 10 MG TABLET PO SCH (09:07)
[2020-08-25] MEDS: *HR* HYDROcodone/Acet 10/325 mg TABLET PO PRN ×2 (09:09→14:45)
[2020-08-25] MEDS: Budesonide/Formoterol 80/4.5 1 PUFF INH IH SCH ×2 (09:50→22:26)
[2020-08-25] MEDS: Mirtazapine 15 MG TABLET PO SCH (20:22)
[2020-08-26] MEDS: Piperacillin/Tazobactam 3.375 GM in 0.9 % Sodium Chloride Mini Bag 100 ML IVPB SCH ×3 (04:02→14:02)
[2020-08-26] MEDS: *HR* HYDROcodone/Acet 10/325 mg TABLET PO PRN ×3 (04:02→19:54)
[2020-08-26] MEDS: Ipratropium/Albuterol Neb 3 ML IH SCH ×4 (04:19→22:09)
[2020-08-26] MEDS: Insulin LISPRO 300 UNITS/3 ML VIAL SQ SCH ×4 (08:27→21:00)
[2020-08-26] MEDS: Sennosides/Docusate Sodium TABLET PO SCH ×2 (08:37→19:54)
[2020-08-26] MEDS: Aspirin Enteric Coated 81 MG Tablet PO SCH (08:38)
[2020-08-26] MEDS: *HR* Rivaroxaban 10 MG TABLET PO SCH (08:38)
[2020-08-26] MEDS: Methylphenidate HCl 10 MG TABLET PO SCH ×2 (08:38→19:54)
[2020-08-26] MEDS: DilTIAZem CD (24hr) 180 MG CAP.ER.24H PO SCH (08:38)
[2020-08-26] MEDS: FLUoxetine 20 MG CAPSULE PO SCH (08:38)
[2020-08-26] MEDS: Furosemide 40 MG TABLET PO SCH (08:38)
[2020-08-26] MEDS: *HR* Amiodarone 200 MG TABLET PO SCH ×2 (08:38→19:53)
[2020-08-26] MEDS: Budesonide/Formoterol 80/4.5 1 PUFF INH IH SCH ×2 (09:52→22:09)
[2020-08-26] MEDS: Mirtazapine 15 MG TABLET PO SCH (19:53)
[2020-08-27] MEDS: *HR* HYDROcodone/Acet 10/325 mg TABLET PO PRN ×5 (01:03→20:14)
[2020-08-27] MEDS: Ipratropium/Albuterol Neb 3 ML IH SCH ×4 (04:11→21:31)
[2020-08-27] MEDS: Insulin LISPRO 300 UNITS/3 ML VIAL SQ SCH ×4 (07:33→20:17)
[2020-08-27] MEDS: DilTIAZem CD (24hr) 180 MG CAP.ER.24H PO SCH (07:40)
[2020-08-27] MEDS: Furosemide 40 MG TABLET PO SCH (07:40)
[2020-08-27] MEDS: *HR* Rivaroxaban 10 MG TABLET PO SCH (07:40)
[2020-08-27] MEDS: Aspirin Enteric Coated 81 MG Tablet PO SCH (07:40)
[2020-08-27] MEDS: Sennosides/Docusate Sodium TABLET PO SCH ×2 (07:41→20:12)
[2020-08-27] MEDS: *HR* Amiodarone 200 MG TABLET PO SCH ×2 (07:41→20:13)
[2020-08-27] MEDS: FLUoxetine 20 MG CAPSULE PO SCH (07:41)
[2020-08-27] MEDS: Methylphenidate HCl 10 MG TABLET PO SCH ×2 (07:41→20:13)
[2020-08-27] MEDS: Budesonide/Formoterol 80/4.5 1 PUFF INH IH SCH ×2 (09:32→21:42)
[2020-08-27 13:06] LABS: BUN/Creatinine Ratio 28 (6-26); Blood Urea Nitrogen 24 mg/dL (8-23); Carbon Dioxide 23 mEq/L (23-29); Chloride 97 mEq/L (98-107); Glucose 130 mg/dL (70-105); Osmolality,Calculated 278 (280-300); Potassium 3.7 mEq/L (3.5-5.1); Sodium 131 mEq/L (136-145); eGFR For African Americans > 60 (> 60); eGFR For Non-African Americans > 60 (> 60)
[2020-08-27 13:41] LABS: Basophils % 0.4 %; Eosinophils # 0.2 K/mcL (0.0-0.6); Eosinophils % 2.2 %; Hematocrit 34.2 % (37.5-50.1); Hemoglobin 10.4 g/dL (12.9-16.9); Immature Granulocytes % 1.2 % (0-4); Lymphocytes # 0.8 K/mcL (0.6-4.6); Lymphocytes % 8.9 %; Mean Corpuscular HGB Conc 30.4 g/dL (31.6-35.5); Mean Corpuscular Hemoglobin 27.5 pg (28.0-33.3); Mean Corpuscular Volume 90.5 fL (83.0-100.0); Mean Platelet Volume 9.7 fL (9.4-12.4); Monocytes # 0.5 K/mcL (0.0-1.3); Monocytes % 5.7 %; Neutrophils # 7.6 K/mcL (1.6-8.9); Platelet Count 395 K/mcL (140-400); Red Blood Count 3.78 M/mcL (4.19-5.50); Red Cell Distribution Width 14.5 % (11.5-14.5); Segmented Neutrophils % 81.6 %; White Blood Count 9.4 K/mcL (4.3-11.1)
[2020-08-27] MEDS: Mirtazapine 15 MG TABLET PO SCH (20:13)
[2020-08-28] MEDS: *HR* HYDROcodone/Acet 10/325 mg TABLET PO PRN ×5 (00:32→22:13)
[2020-08-28 01:31] LABS: BUN/Creatinine Ratio 31 (6-26); Blood Urea Nitrogen 22 mg/dL (8-23); Calcium 8.7 mg/dL (8.6-10.3); Carbon Dioxide 22 mEq/L (23-29); Chloride 99 mEq/L (98-107); Glucose 109 mg/dL (70-105); Osmolality,Calculated 274 (280-300); Potassium 3.8 mEq/L (3.5-5.1); Sodium 130 mEq/L (136-145); eGFR For African Americans > 60 (> 60); eGFR For Non-African Americans > 60 (> 60)
[2020-08-28 02:55] LABS: Eosinophils # 0.3 K/mcL (0.0-0.6); Eosinophils % 4.4 %; Hemoglobin 9.4 g/dL (12.9-16.9); Immature Granulocytes % 1.4 % (0-4); Lymphocytes # 1.1 K/mcL (0.6-4.6); Mean Corpuscular HGB Conc 31.3 g/dL (31.6-35.5); Mean Corpuscular Hemoglobin 28.2 pg (28.0-33.3); Mean Corpuscular Volume 90.1 fL (83.0-100.0); Mean Platelet Volume 9.8 fL (9.4-12.4); Monocytes # 0.6 K/mcL (0.0-1.3); Monocytes % 7.2 %; Neutrophils # 5.7 K/mcL (1.6-8.9); Platelet Count 313 K/mcL (140-400); Red Blood Count 3.44 M/mcL (4.19-5.50); Red Cell Distribution Width 14.6 % (11.5-14.5); Segmented Neutrophils % 72.6 %; White Blood Count 7.8 K/mcL (4.3-11.1)
[2020-08-28 02:56] LABS: Basophils % 0.4 %
[2020-08-28] MEDS: Ipratropium/Albuterol Neb 3 ML IH SCH ×4 (03:43→21:36)
[2020-08-28] MEDS: Insulin LISPRO 300 UNITS/3 ML VIAL SQ SCH ×4 (07:45→20:03)
[2020-08-28] MEDS: *HR* Amiodarone 200 MG TABLET PO SCH ×2 (09:07→20:02)
[2020-08-28] MEDS: *HR* Rivaroxaban 10 MG TABLET PO SCH (09:07)
[2020-08-28] MEDS: Methylphenidate HCl 10 MG TABLET PO SCH ×2 (09:07→20:02)
[2020-08-28] MEDS: Furosemide 40 MG TABLET PO SCH (09:07)
[2020-08-28] MEDS: Aspirin Enteric Coated 81 MG Tablet PO SCH (09:08)
[2020-08-28] MEDS: FLUoxetine 20 MG CAPSULE PO SCH (09:08)
[2020-08-28] MEDS: Sennosides/Docusate Sodium TABLET PO SCH ×2 (09:08→20:02)
[2020-08-28] MEDS: DilTIAZem CD (24hr) 180 MG CAP.ER.24H PO SCH (09:08)
[2020-08-28] MEDS: Budesonide/Formoterol 80/4.5 1 PUFF INH IH SCH ×2 (09:52→21:40)
[2020-08-28] MEDS: Mirtazapine 15 MG TABLET PO SCH (20:02)
[2020-08-29] MEDS: Ipratropium/Albuterol Neb 3 ML IH SCH ×4 (03:18→22:30)
[2020-08-29] MEDS: *HR* HYDROcodone/Acet 10/325 mg TABLET PO PRN ×4 (03:23→20:27)
[2020-08-29] MEDS: Insulin LISPRO 300 UNITS/3 ML VIAL SQ SCH ×4 (08:29→20:22)
[2020-08-29] MEDS: Methylphenidate HCl 10 MG TABLET PO SCH ×2 (08:39→20:27)
[2020-08-29] MEDS: Sennosides/Docusate Sodium TABLET PO SCH ×2 (08:39→20:27)
[2020-08-29] MEDS: Furosemide 40 MG TABLET PO SCH (08:39)
[2020-08-29] MEDS: DilTIAZem CD (24hr) 180 MG CAP.ER.24H PO SCH (08:40)
[2020-08-29] MEDS: *HR* Rivaroxaban 10 MG TABLET PO SCH (08:40)
[2020-08-29] MEDS: *HR* Amiodarone 200 MG TABLET PO SCH ×2 (08:40→20:28)
[2020-08-29] MEDS: FLUoxetine 20 MG CAPSULE PO SCH (08:40)
[2020-08-29] MEDS: Aspirin Enteric Coated 81 MG Tablet PO SCH (08:40)
[2020-08-29] MEDS: Budesonide/Formoterol 80/4.5 1 PUFF INH IH SCH ×2 (09:58→22:31)
[2020-08-29] MEDS: Mirtazapine 15 MG TABLET PO SCH (20:27)
[2020-08-30] MEDS: *HR* HYDROcodone/Acet 10/325 mg TABLET PO PRN ×6 (02:28→23:56)
[2020-08-30] MEDS: Ipratropium/Albuterol Neb 3 ML IH SCH ×4 (04:00→21:22)
[2020-08-30] MEDS: Insulin LISPRO 300 UNITS/3 ML VIAL SQ SCH ×4 (08:26→20:04)
[2020-08-30] MEDS: DilTIAZem CD (24hr) 180 MG CAP.ER.24H PO SCH (08:27)
[2020-08-30] MEDS: *HR* Amiodarone 200 MG TABLET PO SCH ×2 (08:27→20:03)
[2020-08-30] MEDS: Furosemide 40 MG TABLET PO SCH (08:27)
[2020-08-30] MEDS: Aspirin Enteric Coated 81 MG Tablet PO SCH (08:27)
[2020-08-30] MEDS: Sennosides/Docusate Sodium TABLET PO SCH ×2 (08:28→20:02)
[2020-08-30] MEDS: *HR* Rivaroxaban 10 MG TABLET PO SCH (08:28)
[2020-08-30] MEDS: FLUoxetine 20 MG CAPSULE PO SCH (08:28)
[2020-08-30] MEDS: Methylphenidate HCl 10 MG TABLET PO SCH ×2 (08:28→20:03)
[2020-08-30] MEDS: Budesonide/Formoterol 80/4.5 1 PUFF INH IH SCH ×2 (11:12→21:22)
[2020-08-30] MEDS: Mirtazapine 15 MG TABLET PO SCH (20:03)
[2020-08-31] MEDS: Ipratropium/Albuterol Neb 3 ML IH SCH ×4 (03:38→21:49)
[2020-08-31] MEDS: *HR* HYDROcodone/Acet 10/325 mg TABLET PO PRN ×5 (03:54→20:32)
[2020-08-31] MEDS: FLUoxetine 20 MG CAPSULE PO SCH (08:34)
[2020-08-31] MEDS: *HR* Amiodarone 200 MG TABLET PO SCH ×2 (08:34→20:29)
[2020-08-31] MEDS: Methylphenidate HCl 10 MG TABLET PO SCH ×2 (08:34→20:29)
[2020-08-31] MEDS: Sennosides/Docusate Sodium TABLET PO SCH ×2 (08:35→20:30)
[2020-08-31] MEDS: Aspirin Enteric Coated 81 MG Tablet PO SCH (08:35)
[2020-08-31] MEDS: Insulin LISPRO 300 UNITS/3 ML VIAL SQ SCH ×4 (08:35→20:36)
[2020-08-31] MEDS: *HR* Rivaroxaban 10 MG TABLET PO SCH (08:35)
[2020-08-31] MEDS: DilTIAZem CD (24hr) 180 MG CAP.ER.24H PO SCH (08:35)
[2020-08-31] MEDS: Furosemide 40 MG TABLET PO SCH (08:35)
[2020-08-31] MEDS: Budesonide/Formoterol 80/4.5 1 PUFF INH IH SCH ×2 (10:58→21:49)
[2020-08-31] MEDS: Mirtazapine 15 MG TABLET PO SCH (20:29)
[2020-09-01] MEDS: *HR* HYDROcodone/Acet 10/325 mg TABLET PO PRN ×3 (02:49→13:51)
[2020-09-01] MEDS: Ipratropium/Albuterol Neb 3 ML IH SCH ×2 (04:13→10:27)
[2020-09-01 07:12] VITALS: BP 121/67
[2020-09-01] MEDS: FLUoxetine 20 MG CAPSULE PO SCH (08:39)
[2020-09-01] MEDS: Methylphenidate HCl 10 MG TABLET PO SCH (08:39)
[2020-09-01] MEDS: Insulin LISPRO 300 UNITS/3 ML VIAL SQ SCH ×2 (08:39→11:30)
[2020-09-01] MEDS: Sennosides/Docusate Sodium TABLET PO SCH (08:40)
[2020-09-01] MEDS: Furosemide 40 MG TABLET PO SCH (08:40)
[2020-09-01] MEDS: *HR* Rivaroxaban 10 MG TABLET PO SCH (08:40)
[2020-09-01] MEDS: Aspirin Enteric Coated 81 MG Tablet PO SCH (08:40)
[2020-09-01] MEDS: DilTIAZem CD (24hr) 180 MG CAP.ER.24H PO SCH (08:40)
[2020-09-01] MEDS: *HR* Amiodarone 200 MG TABLET PO SCH (08:41)
[2020-09-01] MEDS: Budesonide/Formoterol 80/4.5 1 PUFF INH IH SCH (10:28)
[2020-09-01] MEDS ORDERED: FLU Vac QV 20-21 (6Month+)/PF 0.5 ML SYRINGE IM ONE (11:37)
== END 2020-09-01 14:20 | disposition home or self-care (01) | DRG 228 ==
LOC: INVDIALAB 09:25 → 3BNU 14:40 → ICNU 08-18 14:17 → 2NNU 08-27 10:46
PROVIDERS: ADMIT Internal Medicine Cardiovascular Disease; ATTEND Thoracic Surgery (Cardiothoracic Vascular Surgery)